=== PATIENT | female | born 1965 | race Caucasian/White ===

== ENCOUNTER → 2021-08-03 11:03 | Outpatient (BNVA) | payer OTHER, SELFPAY | PROVIDERS: PCP Family Medicine; Visit Provider Nurse Practitioner Family ==

== ENCOUNTER → 2021-09-14 10:49 | Outpatient (BNVA) | payer OTHER, SELFPAY | PROVIDERS: PCP Family Medicine; Visit Provider Nurse Practitioner Family | DX: G25.81 Restless legs syndrome (principal); G47.33 Obstructive sleep apnea (adult) (pediatric); G43.109 Migraine with aura, not intractable, without status migrainosus; S06.0X0A Concussion without loss of consciousness, initial encounter; R06.83 Snoring; Z79.899 Other long term (current) drug therapy | CPT/HCPCS: 99212 ==

== ENCOUNTER → 2021-11-24 13:49 | Outpatient (REF) | payer OTHER, SELFPAY | LOC: HO.SL 13:49 | PROVIDERS: PCP Family Medicine; Visit Provider Nurse Practitioner Family | DX: G47.33 Obstructive sleep apnea (adult) (pediatric) (principal); R06.83 Snoring; G47.19 Other hypersomnia | CPT/HCPCS: 95806 ==

== ENCOUNTER → 2021-12-02 10:49 | Outpatient (BNVA) | payer OTHER, SELFPAY | PROVIDERS: PCP Family Medicine; Visit Provider Nurse Practitioner Family | DX: Z13.89 Encounter for screening for other disorder (principal) ==

== ENCOUNTER 2021-12-15 16:32 | Outpatient (REF) | payer MEDICARE, SELFPAY ==
--- NOTE | ~2021-12-15 | XR_ITS ---
EXAMINATION: XR CHEST CLINICAL INFORMATION: G47.34 - Idiopathic sleep related nonobstructive alveolar hypoventilation COMPARISON: None. TECHNIQUE: 2 views of the chest were obtained. FINDINGS: Lungs clear. Heart size normal. Vascularity normal. No infiltrate, vascular congestion, or effusion. The costophrenic sulci are clear. The hilar and mediastinal contours are normal. No acute bony abnormality. There is fusion hardware in the lumbar spine. XR/XR chest 2V IMPRESSION: Unremarkable examination.
== END 2021-12-15 16:33 | disposition home or self-care (01) ==
LOC: HO.XRAY 16:32
PROVIDERS: PCP Family Medicine; Visit Provider Internal Medicine
DX: R05.9 Cough, unspecified (principal); G47.34 Idiopathic sleep related nonobstructive alveolar hypoventilation
CPT/HCPCS: 71046; 99202

== ENCOUNTER 2022-01-14 12:49 | Outpatient (REF) | payer MEDICARE, SELFPAY ==
--- NOTE | 2022-01-14 17:42 | PFT_ITS ---
Forced vital capacity 104, FEV1 116, FEV1/FVC ratio is 86. LCK43-06 155, and MVV 116. Post bronchodilator therapy, there is no change. Total lung capacity 92% and residual volume 62%. Diffusion capacity 64. CONCLUSION: Normal pulmonary function test, and there is no evidence of obstructive or restrictive pulmonary disorder. Diffusion capacity is slightly decreased and this is probably a nonspecific finding. Clinical correlation recommended. MD VICKIE Moise/MODL / [id number]
== END 2022-01-14 12:50 | disposition home or self-care (01) ==
LOC: HO.RESP 12:49
PROVIDERS: PCP Family Medicine; Visit Provider Internal Medicine
DX: R05.9 Cough, unspecified (principal); R06.00 Dyspnea, unspecified; G47.34 Idiopathic sleep related nonobstructive alveolar hypoventilation
CPT/HCPCS: 94060; 94727; 94729

== ENCOUNTER → 2022-01-21 11:40 | Outpatient (BNVA) | payer MEDICARE, SELFPAY | PROVIDERS: PCP Family Medicine; Visit Provider Internal Medicine | DX: G47.34 Idiopathic sleep related nonobstructive alveolar hypoventilation (principal); R05.9 Cough, unspecified | CPT/HCPCS: Q3014 ==

== ENCOUNTER → 2022-03-04 11:10 | Outpatient (BNVA) | payer MEDICARE, SELFPAY | PROVIDERS: PCP Family Medicine; Visit Provider Nurse Practitioner Family | DX: G43.109 Migraine with aura, not intractable, without status migrainosus (principal); G25.81 Restless legs syndrome; G47.34 Idiopathic sleep related nonobstructive alveolar hypoventilation; F32.A Depression, unspecified; R05.9 Cough, unspecified; R53.83 Other fatigue; Z79.899 Other long term (current) drug therapy | CPT/HCPCS: 99212 ==

== ENCOUNTER → 2022-05-07 10:35 | Outpatient (BNVA) | payer MEDICARE, SELFPAY | PROVIDERS: PCP Family Medicine; Visit Provider Nurse Practitioner Family | DX: G43.109 Migraine with aura, not intractable, without status migrainosus (principal); G47.34 Idiopathic sleep related nonobstructive alveolar hypoventilation; G25.81 Restless legs syndrome; R53.83 Other fatigue; F32.A Depression, unspecified | CPT/HCPCS: 99212 ==

== ENCOUNTER → 2022-05-20 10:04 | Outpatient (BNVA) | payer MEDICARE, SELFPAY | PROVIDERS: PCP Family Medicine; Visit Provider Psychiatry & Neurology Neurology | DX: G43.119 Migraine with aura, intractable, without status migrainosus (principal) | CPT/HCPCS: 64615; 99211; J0585 ==

== ENCOUNTER → 2022-08-12 10:51 | Outpatient (BNVA) | payer MEDICARE, SELFPAY | PROVIDERS: PCP Family Medicine; Visit Provider Nurse Practitioner Family | DX: G43.119 Migraine with aura, intractable, without status migrainosus (principal); R42 Dizziness and giddiness; R29.6 Repeated falls | CPT/HCPCS: 99212 ==

== ENCOUNTER → 2022-08-27 10:55 | Outpatient (BNVA) | payer MEDICARE, SELFPAY | PROVIDERS: PCP Family Medicine; Visit Provider Psychiatry & Neurology Neurology | DX: G43.119 Migraine with aura, intractable, without status migrainosus (principal); R42 Dizziness and giddiness; R26.9 Unspecified abnormalities of gait and mobility; S06.0XAA Concussion with loss of consciousness status unknown, initial encounter | CPT/HCPCS: 64615; 99212; J0585 ==

== ENCOUNTER → 2022-09-27 15:48 | Outpatient (BNVA) | payer MEDICARE, SELFPAY | PROVIDERS: PCP Family Medicine; Visit Provider Nurse Practitioner Family | DX: G43.809 Other migraine, not intractable, without status migrainosus (principal); F07.81 Postconcussional syndrome; R42 Dizziness and giddiness; R53.83 Other fatigue; F32.A Depression, unspecified | CPT/HCPCS: 99212 ==

== ENCOUNTER 2022-10-01 08:20 | Outpatient (REF) | payer MEDICARE, SELFPAY ==
--- NOTE | 2022-10-01 08:23 | EEG_ITS ---
This is a 16-channel EEG with an EKG lead. The patient is reported awake during the tracing. Background EEG rhythm is low amplitude fast with no obvious asymmetry or paroxysmal tendency. Photic stimulation does not produce any significant abnormality. Hyperventilation is not performed. Cardiac lead does not reveal any significant abnormality. No sharp wave spikes or paroxysmal tendency noted. IMPRESSION: Unremarkable EEG. MD RUIZ Birch/LUANN / [id number]
== END 2022-10-01 08:21 | disposition home or self-care (01) ==
LOC: HO.NEURO 08:20
PROVIDERS: PCP Family Medicine; Visit Provider Psychiatry & Neurology Neurology
DX: R42 Dizziness and giddiness (principal); R29.6 Repeated falls; R41.0 Disorientation, unspecified
CPT/HCPCS: 95816

== ENCOUNTER → 2023-01-03 09:05 | Outpatient (BNVA) | payer MEDICARE, SELFPAY | PROVIDERS: PCP Family Medicine; Visit Provider Nurse Practitioner Family | DX: G43.119 Migraine with aura, intractable, without status migrainosus (principal); G25.81 Restless legs syndrome; R29.6 Repeated falls | CPT/HCPCS: Q3014 ==

== ENCOUNTER 2023-06-02 13:02 | Outpatient (AMB) | payer MEDICARE, SELFPAY ==
--- NOTE | 2023-06-02 13:04 | MHC.OFFVIS ---
Intake Vital Signs 06/02/23 13:06 Weight 186 lb 6 oz BP 128/62 Blood Pressure Location Lt brachial Pulse 78 Pulse Source Pulse Oximeter Pulse Oximetry (%) 96 Oxygen Delivery Method Room Air Intake Visit Reasons: follow up - confirmed Allergies No Known Allergies Allergy (Verified 06/02/23 13:08) Medication List - Last Reconciled 06/02/23 by MANINDER Trinh amitriptyline 20 mg (2 x 10 mg) PO BEDTIME 90 days cholecalciferol (vitamin D3) 50 mcg PO DAILY clonazepam 1 mg PO BID 30 days cyanocobalamin (vitamin B-12) 1,000 mcg PO DAILY erenumab-aooe (Aimovig Autoinjector) 140 mg subcut ONCE 30 days fluoxetine 80 mg (2 x 40 mg) PO DAILY 90 days gabapentin 300 mg PO BID 90 days lamotrigine 75 mg (3 x 25 mg) PO DAILY 90 days ropinirole 1 mg PO DAILY 30 days ropinirole ER 2 mg PO BEDTIME 90 days sumatriptan succinate 100 mg PO Q2H PRN 30 days verapamil ER 100 mg PO BEDTIME 90 days HPI HPI Comments History of Present Illness Details 58-yr-old female presents for f/u visit. Pt endorses the following interval medical history changes: Pt is scheduled to undergo a endoscopy/colonoscopy d/t recurrent UTIs, colon infection, abd/flank pain. Pt reports migraines are reduced on Aimovig. Still easily overstimulated by noise. Her cognition feels less clear, slow, foggy. Having difficulty with losing her train of thought. Having 2-3 room spinning vertigo spells per week- needs to lay down x's 10 minutes and then needs to lay low. Has had interval falls- fell at PT- fell face-first onto the floor from a chair. Is trying to work on her balance. Walking w/ a cane or walker. Trying to ride a recumbent bike 30 minutes most days. Difficulty falling asleep, but once asleep, she is sleeping ok. She feels her mood is worse. [place] over[place]lemd at [place]- by all the noise/talking. states the holidays are always bad. Wonders about switching Fluoxetine- thinks it is not helping as much and maybe casing GERD s/s. Is compliant w/ Lamotrigene 75mg qd- which has been helpful before. Does not currently have a psychiatrist. Tilt-table test: IMPRESSION: ?NONSPECIFIC RESPONSE--due to the fact that the pt demonstrated an expected decrease in B/P of approximately 15 mmHg. ?However, she sustained an increase of heart rate greater than 10%. ?The pt's increase in heart rate ranged from 18-44%, ( up to 21 bpm) using 48 bpm as the baseline. ?Pt had no LOC during procedure. PFSH Medical History Concussion Confusion Hiatal hernia Surgical History H/O: hysterectomy Hx laparoscopic cholecystectomy Hx of bariatric surgery H/O spinal fusion Bariatric surgery status Family History Father Lung cancer Sister Breast cancer Skin cancer of arm Mother COPD (chronic obstructive pulmonary disease) Paternal Grandmother Cancer Paternal Grandfather Throat cancer Maternal Grandfather Prostate cancer Social History Alcohol intake: never Patient Tobacco Use Status: Former Tobacco user Years Smoked: 3 Substance Use Type: Marijuana Review of Systems Const All systems reviewed & are unremarkable except as noted in HPI and below Physical Exam Vital Signs: Last Vital Signs Pulse 78 06/02/23 13:06 BP 128/62 06/02/23 13:06 Pulse Ox 96 06/02/23 13:06 Oxygen Delivery Method Room Air 06/02/23 13:06 Const General: cooperative and no acute distress HEENT Head: Yes normocephalic Resp Effort & Inspection: normal respiratory effort and able to speak in complete sentences Neuro Other: A&O x's 3 w/ mild short term memory and word finding difficulties. Photophobia Finger-Nose- Right dysmetria BUE MS 5/5 BLE MS 5-/5 Unsteady gait- uses wall as support w/o cane. General: CN's II-XI intact bilaterally (intact w/ exception of mild dysarthia and EOM elicits dizziness) Deep tendon reflexes (DTR's): Right triceps reflex intensity grade: 2+, Left triceps reflex intensity grade: 2+, Rt Biceps (C5, C6): 2+, Left biceps reflex intensity grade: 2+, Right brachioradialis reflex intensity grade: 2+, Left brachioradialis reflex intensity grade: 2+, Right patellar reflex intensity grade: 2+ and Left patellar reflex intensity grade: 2+ Psych Appearance: grossly normal Affect: normal affect Attitude: cooperative Assessment & Plan Assessment & Plan (1) Migraine with aura: Code(s): G43.109 - Migraine with aura, not intractable, without status migrainosus (2) Multifactorial cognitive dysfunction: Code(s): 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 Tilt-table test- non-specific response- HR elevation w/ BP elevation response. Increase fluids. Future considerations- weaning off of verapamll. ? For migraines: For phonophobia- may consider noise cancelling ear plugs- such as [employer]. Continue Aimovig 140mg sc q month. Continue Amitriptyline 20mg qhs. Continue Verapamil ER 100mg qhs. Sumatriptan 100mg prn. Previous medication trials- Botox- ineffective. ? For RLS: Continue Ropinirole 1mg IR qam and 2mg ER qhs. For cognition: Engage in cognitively stimualting activities ? For depression, PTSD: Continue fluoxetine 80mg qd- would be hesitant to decrease at this time as pt's mood tends to be worse Increase Lamotrigene from 75mg qd to 100mg qd. Will refer pt to psychiatry. Disability paperwork completed today ? f/u in 4 months or sooner prn. Orders: Referrals Psychiatry Referral F09 - Unspecified mental disorder due to known physiological condition, F32.A - Depression, unspecified, F43.10 - Post-traumatic stress disorder, unspecified, G43.109 - Migraine with aura, not intractable, without status migrainosus, S06.0X0A - Concussion without loss of consciousness, initial encounter Medications: Changed From lamotrigine 75 mg (3 x 25 mg) PO DAILY 90 days 270 tabs 1RF To lamotrigine 100 mg (4 x 25 mg) PO DAILY 90 days 360 tabs 1RF Coding Level of Care Code Est Pt Level 4 (27057) Diagnoses Migraine with aura G43.109 Multifactorial cognitive dysfunction F09 Vertigo R42
[2023-06-02 13:06] VITALS: BP 128/62; PULSE 78; O2SAT 96
== END 2023-06-02 14:01 | disposition home or self-care (01) ==
PROVIDERS: PCP Family Medicine; Visit Provider Nurse Practitioner Family
DX: G43.109 Migraine with aura, not intractable, without status migrainosus (principal); R41.89 Other symptoms and signs involving cognitive functions and awareness; R42 Dizziness and giddiness; R29.6 Repeated falls
CPT/HCPCS: 99214

== ENCOUNTER → 2023-06-02 13:02 | Outpatient (BNVA) | payer MEDICARE, SELFPAY | PROVIDERS: PCP Family Medicine; Visit Provider Nurse Practitioner Family | DX: G43.109 Migraine with aura, not intractable, without status migrainosus (principal); F09 Unspecified mental disorder due to known physiological condition; R42 Dizziness and giddiness | CPT/HCPCS: 99212 ==

== ENCOUNTER 2023-09-02 07:52 | Outpatient (AMB) | payer MEDICARE, SELFPAY ==
[2023-09-02 07:59] VITALS: PULSE 87; O2SAT 96; BMI 30.9
--- NOTE | 2023-09-02 07:59 | A.OFFVIS_ITS ---
Intake Vital Signs 09/02/23 07:59 Height 5 ft 5 in Weight 186 lb BMI 30.9 Pulse 87 Pulse Source Pulse Oximeter Pulse Oximetry (%) 96 Oxygen Delivery Method Room Air Intake Visit Reasons: 3M follow up-LVM Intake Note: Patient presents for 3 month follow up. I 've had quite a few falls. Allergies No Known Allergies Allergy (Verified 09/02/23 08:05) Medication List - Last Reconciled 09/02/23 by MANINDER Trinh amitriptyline 20 mg (2 x 10 mg) PO BEDTIME 90 days cholecalciferol (vitamin D3) 50 mcg PO DAILY clonazepam 1 mg PO BID 30 days cyanocobalamin (vitamin B-12) 1,000 mcg PO DAILY erenumab-aooe (Aimovig Autoinjector) 140 mg subcut ONCE 30 days fluoxetine 80 mg (2 x 40 mg) PO DAILY 90 days gabapentin 300 mg PO BID 90 days lamotrigine 100 mg (4 x 25 mg) PO DAILY 90 days ropinirole 1 mg PO DAILY 90 days ropinirole ER 2 mg PO BEDTIME 90 days sumatriptan succinate 100 mg PO Q2H PRN 30 days verapamil 40 mg PO BID 30 days HPI HPI Comments History of Present Illness Details 58-yr-old female presents for f/u visit. Pt reports she has been having a lot of falls . States 6 falls in the past 2 months. Falls triggered by turning to the right whetehr she is using a device or not, causes her to ebcome off balance, then falls. Many times, she has hit her head. Slowly she can get herself up. She had been more depressed- hard . Denies suicidal ideation. She wonders about changing her fluoxetine dose. Has appt w/ psychiatrist on 10/02. Continues to have forgetfulness and brain fog. She has not had any migraine attacks since resuming Aimovig. Has started having another headache, which started 2 months ago- sharp quick retororbital pain which comes and goes x's 10-15 minutes. Once woke up with this headache. This can occur at most 3 x's in 1 day. Does not occur every day. [facility], [facility] Medical History Concussion Confusion Hiatal hernia Surgical History H/O: hysterectomy Hx laparoscopic cholecystectomy Hx of bariatric surgery H/O spinal fusion Bariatric surgery status Family History Father Lung cancer Sister Breast cancer Skin cancer of arm Mother COPD (chronic obstructive pulmonary disease) Paternal Grandmother Cancer Paternal Grandfather Throat cancer Maternal Grandfather Prostate cancer Social History Alcohol intake: never Patient Tobacco Use Status: Former Tobacco user Years Smoked: 3 Substance Use Type: Marijuana Physical Exam Vital Signs: Last Vital Signs Pulse 87 09/02/23 07:59 Pulse Ox 96 09/02/23 07:59 Oxygen Delivery Method Room Air 09/02/23 07:59 BMI result Body Mass Index 30.9 Const General: cooperative and no acute distress Orientation/consciousness: patient oriented x3 Resp Effort & Inspection: normal respiratory effort and able to speak in complete sentences Neuro Other: A&O x's 3 w/ mild short term memory and word finding difficulties. Photophobia BUE MS 5/5 BLE MS 5-/5 Unsteady gait- uses wall as support w/o cane. General: patient oriented x3 Cranial nerves: Yes CN's II-XII intact bilaterally Cognition (Neuro): normal cognition Psych Appearance: grossly normal Affect: normal affect Attitude: cooperative Assessment & Plan Assessment & Plan (1) New onset headache: Code(s): R51.9 - Headache, unspecified (2) Stabbing headache: Code(s): G44.85 - Primary stabbing headache (3) Frequent falls: Code(s): R29.6 - Repeated falls (4) Multifactorial cognitive dysfunction: Code(s): F09 - Unspecified mental disorder due to known physiological condition (5) Migraine with aura, intractable, without status migrainosus: Code(s): G43.119 - Migraine with aura, intractable, without status migrainosus (6) Restless leg syndrome: Code(s): G25.81 - Restless legs syndrome Plan For h/o frequent falls, vertigo: EEG- normal. Tilt-table test- non-specific response- HR elevation w/ BP elevation response. Continue to increase fluids. For new onset headache in setting of multiple falls- Brain MRI w/o For migraines: Continue Aimovig 140mg sc q month. Continue Amitriptyline 20mg qhs. Wean off Verapamil ER 100mg qhs- change to 40mg bid, then slowly wean off completely- in hope sthis helps lightheadedness. Sumatriptan 100mg prn. Previous medication trials- Botox- ineffective. ? For RLS: Continue Ropinirole 1mg IR qam and 2mg ER qhs. For cognition: Engage in cognitively stimulating activities ? For depression, PTSD: Continue fluoxetine 80mg qd- would be hesitant to decrease at this time as pt's mood tends to be worse Continue Lamotrigene 100mg qd. Pt requests refill of Clonzazepam- will refill. Psychiatry consult as scheduled. f/u in 4 months or sooner prn. Medications: New verapamil 40 mg PO BID 60 tabs 3RF 30 days Discontinued verapamil ER Discontinued Reason: Doctor's Order 100 mg PO BEDTIME 90 days 90 caps 1RF Coding Level of Care Code Est Pt Level 4 (85978) Diagnoses New onset headache R51.9 Stabbing headache G44.85 Frequent falls R29.6 Multifactorial cognitive dysfunction F09 Migraine with aura, intractable, without status migrainosus G43.119 Restless leg syndrome G25.81
== END 2023-09-02 08:49 | disposition home or self-care (01) ==
PROVIDERS: PCP Family Medicine; Visit Provider Nurse Practitioner Family
DX: G44.85 Primary stabbing headache (principal); R29.6 Repeated falls; R41.89 Other symptoms and signs involving cognitive functions and awareness; G43.119 Migraine with aura, intractable, without status migrainosus; G25.81 Restless legs syndrome
CPT/HCPCS: 99214

== ENCOUNTER → 2023-09-02 07:52 | Outpatient (BNVA) | payer MEDICARE, SELFPAY | PROVIDERS: PCP Family Medicine; Visit Provider Nurse Practitioner Family | DX: G44.85 Primary stabbing headache (principal); G43.119 Migraine with aura, intractable, without status migrainosus; G25.81 Restless legs syndrome; R29.6 Repeated falls; F09 Unspecified mental disorder due to known physiological condition | CPT/HCPCS: 99212 ==

== ENCOUNTER 2023-11-09 09:12 | Outpatient (REF) | payer MEDICARE, SELFPAY ==
--- NOTE | ~2023-11-09 | MR_ITS ---
EXAMINATION: MR BRAIN WITHOUT CONTRAST CLINICAL INFORMATION: Headache COMPARISON: None. TECHNIQUE: MRI of the brain was obtained using routine sequences without contrast. FINDINGS: Motion degraded examination compromising diagnostic assessment. No acute infarct. No acute intracranial hemorrhage or extra-axial fluid collection. Mild global cerebral volume loss. Patchy T2 FLAIR hyperintense foci in the subcortical and periventricular white matter and felipe, nonspecific but presumably mild chronic microangiopathy. No mass lesion, mass effect, or herniation pattern. Normal intracranial arterial and dural venous sinus flow voids. Partially empty sella. Small right and possibly also left petrous apex cephaloceles. The orbits are grossly unremarkable. The paranasal sinuses and mastoids are well aerated. Normal marrow signal. MR/MR head/brain wo/w con IMPRESSION: Motion degraded examination compromising diagnostic assessment. 1. No acute intracranial abnormality. 2. Partially empty sella and small right and possibly also left petrous apex cephaloceles that can be correlated clinically for recent intracranial pressure/pseudotumor cerebri. 3. Mild age-appropriate global cerebral volume loss. Nonspecific white matter disease, presumably chronic microangiopathy.
[2023-11-09] MEDS: gadobutroL 10 ML VIAL IVPUSH (11:13)
== END 2023-11-09 09:13 | disposition home or self-care (01) ==
LOC: HO.MRI 09:12
PROVIDERS: PCP Family Medicine; Visit Provider Nurse Practitioner Family
DX: G44.85 Primary stabbing headache (principal); R29.6 Repeated falls
CPT/HCPCS: 70553; A9585

== ENCOUNTER 2023-12-23 09:35 | Outpatient (REF) | payer MEDICARE, SELFPAY ==
--- NOTE | ~2023-12-23 | XR_ITS ---
EXAMINATION: XR CERVICAL SPINE CLINICAL INFORMATION: Patient states has had this condition for 7 years. History of falls and whiplash. COMPARISON: None available. TECHNIQUE: 7 views of the cervical spine. FINDINGS: Degenerative changes between the anterior arch of C1 and the odontoid. Advanced degenerative changes with spondylosis and loss of disc space height at C4-C5 and C5-C6. Limited visualization of C7 due to overlying soft tissues. Minimal anterolisthesis of C2 on C3 with flexion and reduces with extension. Mild anterolisthesis of C3 on C4 with flexion and decreases with extension. Bilateral facet hypertrophy with neural foraminal encroachment most notable at C4-C6 levels. XR/XR cervical spine w flex/ext IMPRESSION: Advanced degenerative disc disease at C4-C5 and C5-C6.
== END 2023-12-23 09:36 | disposition home or self-care (01) ==
LOC: HO.XRAY 09:35
PROVIDERS: PCP Family Medicine; Visit Provider Nurse Practitioner Family
DX: M54.2 Cervicalgia (principal); R29.6 Repeated falls
CPT/HCPCS: 72052

== ENCOUNTER 2024-02-07 09:39 | Outpatient (AMB) | payer MEDICARE, SELFPAY ==
--- NOTE | 2024-02-07 09:41 | MHC.OFFVIS ---
Vital Signs 02/07/24 09:42 Height 5 ft 5 in Weight 183 lb BMI 30.4 BP 114/82 Blood Pressure Location Rt brachial Position Sitting Pulse 82 Pulse Source Pulse Oximeter Pulse Oximetry (%) 97 Oxygen Delivery Method Room Air Intake Visit Reasons: follow up-CONF Intake Note: Patient presents for follow up. patients cognition has declined and is forgetting a lot of things frequently. Allergies No Known Allergies Allergy (Verified 02/07/24 09:51) HPI Comments Details: 58-yr-old female presents for f/u visit. Pt was scheduled to have DaTscan, however she had a syncopal event during the study (after taking the drink but prior the scan itself) so study was aborted and pt was sent to the ER. In the ER, it was noted that pt had not eaten prior to the study. The DaTscan has been rescheduled for later this month. November 2023 Brain MRI w/o- 1. No acute intracranial abnormality. 2. Partially empty sella and small right and possibly also left petrous apex cephaloceles that can be correlated clinically for recent intracranial pressure/pseudotumor cerebri. 3. Mild age-appropriate global cerebral volume loss. Nonspecific white matter disease, presumably chronic microangiopathy She has had too many falls to count . Prone to falling backwards. Feeling more cognitive difficulties. She has been having increased bilateral lower back pain which radiates up as sharp pains up her back if she tries to do anything- like bending over. Some days this prevents her from even getting out of bed. States that she she was told she had kidney stones but then told her she does not. She states she is just exhausted- even taking a shower, makes her need to rest and lay back down. She is sweating more in the few months- even shaved her head to help this. Other times, she feels very cold. She does have central air at home. She odes have a hot tub- feels better when using it but as soon as she is done, everything feels worse. She is feeling depressed. She is not driving anymore- she decided this on her own. She is not having migraines. She may have head pressure. She has tolerated reducing verapamil and increasing the amitriptyline. [facility] Medical History Concussion Confusion Hiatal hernia Surgical History H/O: hysterectomy Hx laparoscopic cholecystectomy Hx of bariatric surgery H/O spinal fusion Bariatric surgery status Family History Father Lung cancer Sister Breast cancer Skin cancer of arm Mother COPD (chronic obstructive pulmonary disease) Paternal Grandmother Cancer Paternal Grandfather Throat cancer Maternal Grandfather Prostate cancer Social History Alcohol intake: never Patient Tobacco Use Status: Former Tobacco user Years Smoked: 3 Substance Use Type: Marijuana Review of Systems Const All systems reviewed & are unremarkable except as noted in HPI and below Physical Exam Vital Signs: Last Vital Signs Pulse 82 02/07/24 09:42 BP 114/82 02/07/24 09:42 Pulse Ox 97 02/07/24 09:42 Oxygen Delivery Method Room Air 02/07/24 09:42 BMI result Body Mass Index 30.4 Const General: cooperative and no acute distress Resp Effort & Inspection: normal respiratory effort and able to speak in complete sentences Neuro Other: General: A&O x's 3 BLE hip flexor MS 5-/5. BLE foot dorsiflexion MS 5-/5. Bilateral R > L lumbar parspinal tenderness Needs assist to stand, knees bent, slightly scissoered gait. Deep tendon reflexes (DTR's): Right patellar reflex intensity grade: 2+, Left patellar reflex intensity grade: 2+, Right ankle reflex intensity grade: 2+ and Left ankle reflex intensity grade: 2+ Assessment & Plan Assessment & Plan (1) Frequent falls: Code(s): R29.6 - Repeated falls Category: Medical (2) Altered gait: Code(s): R26.9 - Unspecified abnormalities of gait and mobility Category: Medical (3) Low back pain: Code(s): M54.50 - Low back pain, unspecified Category: Medical (4) Migraine with aura: Code(s): G43.109 - Migraine with aura, not intractable, without status migrainosus Category: Medical (5) Restless leg syndrome: Code(s): G25.81 - Restless legs syndrome Category: Medical (6) Depression: Code(s): F32.A - Depression, unspecified Category: Medical (7) PTSD (post-traumatic stress disorder): Code(s): F43.10 - Post-traumatic stress disorder, unspecified Category: Medical (8) Multifactorial cognitive dysfunction: Code(s): F09 - Unspecified mental disorder due to known physiological condition Category: Medical Plan For h/o frequent falls, vertigo: EEG- normal. Tilt-table test- non-specific response- HR elevation w/ BP elevation response. DaTscan as scheduled. Brain MRI- partail empty sella, and small right and possibly also left petrous apex cephaloceles. No vision changes. Routine eye eam. Mild age-appropriate global cerebral volume loss. Nonspecific white matter disease, presumably chronic microangiopathy. Continue to optimize CV risk factors. . Will continue to wean off Verapamil in hopes this reduces risk for falls. Will check labs, including lamotrigeine level. Home PT eval & tx for home safety, strength, endurance, balance, adaptive equipment eval & tx. L-spine MRI w/o. Continue to increase fluids. Future considerations- reducing lamotrigine dose (being mindful taht this has been helpful for mood). ?. For migraines: Continue Aimovig 140mg sc q month. Continue Amitriptyline 20mg qhs. Continue to wean off Verapamil. Decrease from 40mg qd to 40mg qod x's 1 week, then 40mg qod q 3 days x's 1 week, then stop. Sumatriptan 100mg prn. Previous medication trials- Botox- ineffective. ? For RLS: Continue Ropinirole 1mg IR qam and 2mg ER qhs. ? For cognition: Engage in cognitively stimulating activities Check labs for common etiologies. ? For depression, PTSD: Continue fluoxetine 80mg qd. Continue Lamotrigene 100mg qd for now. Continue Clonzazepam- will refill. ? f/u in 4 months or sooner prn. Orders: Orders Complete Blood Count Auto Diff Today F09 - Unspecified mental disorder due to known physiological condition, R26.9 - Unspecified abnormalities of gait and mobility, R42 - Dizziness and giddiness, R79.89 - Other specified abnormal findings of blood chemistry Comprehensive Met. Panel Today F09 - Unspecified mental disorder due to known physiological condition, R26.9 - Unspecified abnormalities of gait and mobility, R42 - Dizziness and giddiness, R79.89 - Other specified abnormal findings of blood chemistry Vitamin B12 and Folate Today F09 - Unspecified mental disorder due to known physiological condition, R26.9 - Unspecified abnormalities of gait and mobility, R42 - Dizziness and giddiness, R79.89 - Other specified abnormal findings of blood chemistry Homocysteine Today F09 - Unspecified mental disorder due to known physiological condition, R26.9 - Unspecified abnormalities of gait and mobility, R42 - Dizziness and giddiness, R79.89 - Other specified abnormal findings of blood chemistry Rheumatoid Factor Today F09 - Unspecified mental disorder due to known physiological condition, R26.9 - Unspecified abnormalities of gait and mobility, R42 - Dizziness and giddiness, R79.89 - Other specified abnormal findings of blood chemistry Lamotrigine Lamictal Today F09 - Unspecified mental disorder due to known physiological condition, R26.9 - Unspecified abnormalities of gait and mobility, R42 - Dizziness and giddiness, R79.89 - Other specified abnormal findings of blood chemistry Erythrocyte Sedimentation Rate Today F09 - Unspecified mental disorder due to known physiological condition, R26.9 - Unspecified abnormalities of gait and mobility, R42 - Dizziness and giddiness, R79.89 - Other specified abnormal findings of blood chemistry Hemoglobin A1c Today F09 - Unspecified mental disorder due to known physiological condition, R26.9 - Unspecified abnormalities of gait and mobility, R42 - Dizziness and giddiness, R79.89 - Other specified abnormal findings of blood chemistry Methylmalonic Acid Today F09 - Unspecified mental disorder due to known physiological condition, R26.9 - Unspecified abnormalities of gait and mobility, R42 - Dizziness and giddiness, R79.89 - Other specified abnormal findings of blood chemistry SUZETTE Reflex Titer and Pattern Today F09 - Unspecified mental disorder due to known physiological condition, R26.9 - Unspecified abnormalities of gait and mobility, R42 - Dizziness and giddiness, R79.89 - Other specified abnormal findings of blood chemistry CRP High Sensitivity Today F09 - Unspecified mental disorder due to known physiological condition, R26.9 - Unspecified abnormalities of gait and mobility, R42 - Dizziness and giddiness, R79.89 - Other specified abnormal findings of blood chemistry HIV Ab/Ag Today F09 - Unspecified mental disorder due to known physiological condition, R26.9 - Unspecified abnormalities of gait and mobility, R42 - Dizziness and giddiness, R79.89 - Other specified abnormal findings of blood chemistry Syphilis Screen Today F09 - Unspecified mental disorder due to known physiological condition, R26.9 - Unspecified abnormalities of gait and mobility, R42 - Dizziness and giddiness, R79.89 - Other specified abnormal findings of blood chemistry TSH reflex Free T4 Today F09 - Unspecified mental disorder due to known physiological condition, R26.9 - Unspecified abnormalities of gait and mobility, R42 - Dizziness and giddiness, R79.89 - Other specified abnormal findings of blood chemistry MR lumbar spine wo con Today M54.50 - Low back pain, unspecified, R26.9 - Unspecified abnormalities of gait and mobility, R29.6 - Repeated falls Referrals [facility] Referral M54.50 - Low back pain, unspecified, R26.9 - Unspecified abnormalities of gait and mobility, R29.6 - Repeated falls Coding Level of Care Code Est Pt Level 4 (44150) Diagnoses Frequent falls R29.6 Altered gait R26.9 Low back pain M54.50 Migraine with aura G43.109 Restless leg syndrome G25.81 Depression F32.A PTSD (post-traumatic stress disorder) F43.10 Multifactorial cognitive dysfunction F09
[2024-02-07 09:42] VITALS: BP 114/82; PULSE 82; O2SAT 97; BMI 30.4
== END 2024-02-07 10:50 | disposition home or self-care (01) ==
PROVIDERS: PCP Family Medicine; Visit Provider Nurse Practitioner Family
DX: R29.6 Repeated falls (principal); R26.9 Unspecified abnormalities of gait and mobility; M54.50 Low back pain, unspecified; G43.109 Migraine with aura, not intractable, without status migrainosus; G25.81 Restless legs syndrome; F32.A Depression, unspecified; F43.10 Post-traumatic stress disorder, unspecified
CPT/HCPCS: 99214

== ENCOUNTER → 2024-02-07 09:39 | Outpatient (BNVA) | payer MEDICARE, SELFPAY | PROVIDERS: PCP Family Medicine; Visit Provider Nurse Practitioner Family | DX: G43.109 Migraine with aura, not intractable, without status migrainosus (principal); G25.81 Restless legs syndrome; R79.89 Other specified abnormal findings of blood chemistry; M54.50 Low back pain, unspecified; R29.6 Repeated falls; F32.A Depression, unspecified; F43.10 Post-traumatic stress disorder, unspecified | CPT/HCPCS: 99212 ==

== ENCOUNTER 2024-02-08 13:46 | Outpatient (REF) | payer MEDICARE, SELFPAY ==
[2024-02-08 14:19] LABS: MANUAL DIFF FLAG NO
[2024-02-08 14:44] LABS: Basophils Percent Auto 0.8 % (0-2); Eosinophils Absolute Auto 0.3 X10*3/uL (0.0-0.4); Eosinophils Percent Auto 7.2 % (0-4); Hematocrit 38.9 % (37.0-47.0); Hemoglobin 12.7 g/dl (12.0-16.0); Imm Gran Abs Auto 0.01 X10*3/uL (0.00-0.03); Imm Gran Pct Auto 0.3 % (0.0-0.4); Lymphocytes Absolute Auto 1.1 X10*3/uL (1.2-4.9); Lymphocytes Percent Auto 28.8 % (20-40); Mean Corpuscular HGB Conc 32.6 g/dl (31.0-35.0); Mean Corpuscular Hemoglobin 30.2 pg (27.0-33.0); Mean Corpuscular Volume 92.6 fL (80.0-98.0); Mean Platelet Volume 11.3 fL (9.4-12.3); Monocytes Absolute Auto 0.3 X10*3/uL (0.1-1.2); Monocytes Percent Auto 7.5 % (2-11); Neutrophils Absolute Auto 2.2 x10*3/uL (2.0-8.3); Neutrophils Percent Auto 55.4 % (45-73); Platelet Count 235 X10*3/uL (160-400); Red Cell Distribution Width 13.4 % (11.0-16.0); White Blood Count 3.9 X10*3/uL (4.8-10.8)
[2024-02-08 14:52] LABS: Estimated Average Glucose 100 mg/dL; Hemoglobin A1c % 5.1 % (<6.0)
[2024-02-08 15:05] LABS: Rheumatoid Factor < 13.0 IU/mL (<15.0)
[2024-02-08 15:08] LABS: Alanine Aminotransferase 21 U/L (0-31); Albumin Level 3.7 g/dL (3.5-5.0); Alkaline Phosphatase 121 U/L (39-117); Anion Gap 9 (12-20); Aspartate Amino Transferase 17 U/L (5-31); Bilirubin Total 0.3 mg/dL (0.0-1.0); Blood Urea Nitrogen 13 mg/dL (9-16); Calcium 9.5 mg/dL (8.4-10.2); Carbon Dioxide 29 mmol/L (22-29); Chloride 108 mmol/L (96-108); Estimated Glomerular Filt Rate > 60; Glucose Random 89 mg/dL (60-115); Sodium 142 mmol/L (135-145); Total Protein 6.6 g/dL (6.5-8.0)
[2024-02-08 15:22] LABS: TSH reflex Free T4 1.51 uIU/mL (0.32-4.0)
[2024-02-08 15:25] LABS: Erythrocyte Sedimentation Rate 17 MM/HR (0-20)
[2024-02-08 15:36] LABS: Folate 8.7 ng/mL (> or = 4.0); Vitamin B12 654 pg/mL (200-900)
[2024-02-09 07:49] LABS: Syphilis Screen Nonreactive (Nonreactive)
[2024-02-09 07:51] LABS: HIV AB/AG Nonreactive (Nonreactive); HIV Num 1 0.05 S/CO (0.00-0.99)
[2024-02-09 09:33] LABS: CRP High Sensitivity 1.3 mg/L
[2024-02-09 15:49] LABS: Homocysteine 7.6 umol/L (<10.4)
[2024-02-11 09:24] LABS: Methylmalonic Acid 175 nmol/L (69-390)
[2024-02-11 16:37] LABS: Lamotrigine Lamictal 2.4 mcg/mL (2.5-15.0)
[2024-02-13 10:39] LABS: Anti Nuclear Antibody Screen NEGATIVE (NEGATIVE)
== END 2024-02-08 13:47 | disposition home or self-care (01) ==
LOC: HO.LAB 13:46
PROVIDERS: PCP Family Medicine; Visit Provider Nurse Practitioner Family
DX: R26.9 Unspecified abnormalities of gait and mobility (principal); R79.89 Other specified abnormal findings of blood chemistry; F09 Unspecified mental disorder due to known physiological condition; R42 Dizziness and giddiness
CPT/HCPCS: 36415; 80053; 80175; 82607; 82746; 83036; 83090; 83921; 84443; 85025; 85652; 86038; 86141; 86431; 86780; 87389

== ENCOUNTER → 2024-03-29 07:15 | Outpatient (BNV) | payer MEDICARE, MEDICAID, SELFPAY | PROVIDERS: PCP Family Medicine; Visit Provider Radiology Diagnostic Radiology | DX: R26.9 Unspecified abnormalities of gait and mobility (principal) | CPT/HCPCS: 70546; 72148 ==

== ENCOUNTER 2024-03-29 07:23 | Outpatient (REF) | payer MEDICARE, MEDICAID, SELFPAY ==
--- NOTE | ~2024-03-29 | MR_ITS ---
EXAMINATION: MR of the brain with contrast. CLINICAL INFORMATION: Headache. COMPARISON: No priors. Correlated to MRI brain dated November 09, 2023. TECHNIQUE: Coronal 2-D [id number] with contrast. Sagittal twist. Total of 10 cc of gadolinium (Gadavist) given IV without reported immediate complications. FINDINGS: Superior sagittal venous sinus, internal cerebral veins, vein of Kendrick, straight venous sinus, transverse and sigmoid venous sinuses and jugular bulbs demonstrated normal patency without intraluminal filling defects or focal stenosis. There is a dominant right transverse and sigmoid sinuses. MR/MR venography head wo/w con IMPRESSION: No main cerebral venous sinus thrombosis. Electronically signed by: Roger Peraza MD 05/03/2024 09:18 AM EDT
--- NOTE | ~2024-03-29 | MR_ITS ---
EXAMINATION: MR LUMBAR SPINE WITHOUT CONTRAST CLINICAL INFORMATION: Unspecified abnormality gait and mobility. Left-sided pain. COMPARISON: None available. TECHNIQUE: MRI of the lumbar spine was obtained using routine sequences without contrast. FINDINGS: Exam submitted for interpretation on April 30, 2024. Last rib-bearing vertebra labeled T12. Paramagnetic field distortion secondary to metallic hardware from the posterior fusion L3 L5 and intervertebral disc spacers, L3-4 and L4-5 levels. Multilevel marginal osteophyte formation and disc desiccation more conspicuous at L2-3. Bone marrow STIR signal in the endplates of L2-3. Modic type I endplate changes L2-3. Grade 1 retrolisthesis, L2-3. Conus medullaris ends at superior endplate of L1 with normal signal. No elements of the thecal sac demonstrated no grouping or clumping or thecal sac empty sign. T12-L1: No compression upon neural elements. L1-2: Right subarticular broad-based disc herniation. No compression upon neural elements. Facet joint hypertrophy. L2-3: Grade 1 retrolisthesis. Broad-based disc bulging. Facet joint and ligamentum flavum hypertrophy. Reduced AP diameter of the thecal sac and the neural foramina likely encroaching the neural elements. L3-4: Post surgical changes. L4-5: Post surgical changes. Probable grade 1 anterolisthesis. Broad-based disc bulging. Facet joint hypertrophy. Bilateral neuroforamina narrowing encroaching the exiting nerve roots. Tarlov cyst, right S1. No prevertebral compartment hematoma, mass or fluid collection. Fatty atrophy of the lower lumbar muscles. MR/MR lumbar spine wo con IMPRESSION: Cervical spondylosis L2-3 resulting in grade 1 retrolisthesis and central spinal canal and neural foramina stenosis encroaching the neural limits. Instability cannot be excluded. No acute or chronic arachnoiditis. Electronically signed by: Roger Peraza MD 04/30/2024 12:42 PM EDT
[2024-03-29] MEDS: gadobutroL 10 ML VIAL IVPUSH (08:44)
== END 2024-03-29 07:24 | disposition home or self-care (01) ==
LOC: HO.MRI 07:23
PROVIDERS: PCP Family Medicine; Visit Provider Nurse Practitioner Family
DX: R51.9 Headache, unspecified (principal); R26.9 Unspecified abnormalities of gait and mobility; S06.0XAA Concussion with loss of consciousness status unknown, initial encounter; R29.6 Repeated falls; M54.50 Low back pain, unspecified
CPT/HCPCS: 70546; 72148; A9585

== ENCOUNTER 2024-04-13 10:25 | Outpatient (AMB) | payer MEDICARE, MEDICAID, SELFPAY ==
--- NOTE | 2024-04-13 10:44 | A.SPINEOV_ITS ---
Intake Visit Reasons: low back pain Intake Note: Ms. Amaya is here today c/o low back pain with difficulty walking. Regional Construction Manager Required: No Allergies No Known Allergies Allergy (Verified 04/13/24 10:48) Assessment & Plan Assessment & Plan (1) Carpal tunnel syndrome: Code(s): G56.00 - Carpal tunnel syndrome, unspecified upper limb Category: Medical (2) Synovial cyst of lumbar facet joint: Code(s): M71.38 - Other bursal cyst, other site Category: Medical (3) Lumbar back pain with radiculopathy affecting left lower extremity: Code(s): M54.16 - Radiculopathy, lumbar region Category: Medical Plan Dear colleague Thank you for referring Zaria Amaya to the office today with a chief complaint of left sciatica. HPI: This 59-year-old female underwent an L3-4 and L4-5 lumbar fusion 2020 from which he recovered well. In the last year she developed severe pain radiating down her left leg. It starts in the left side of her back then goes to a posterior thigh down her leg. Is also tingling associated in the lower part of the leg and foot. She has tried multiple injections without success. She using CBD for pain control. Physical therapy was not successful. Second complaint is tingling in her hands, predominantly the 4th and 3rd finger. She had carpal tunnel release done approximately 20 years ago. Overall, she is healthy regarding cardiac and pulmonary status. She does have postconcussion syndrome due to multiple falls. She is under care of a neurologist that is trying to figure out why she is falling that frequently. ots PMH: Migraine, tinnitus Postconcussion syndrome, bariatric surgery, lumbar fusion, hiatal hernia repair, cholecystectomy Medications: Amitriptyline, propranolol, clonazepam, fluoxetine, gabapentin, lamotrigine, sumatriptan, methenamine, pantoprazole, multivitamins Allergies: NKDA Social history: . Nonsmoker disabled Physical Exam: Patient ambulates with a cane. Straight leg raise produces pain radiating down her left leg. Motor exam shows mil weakness of the plantar flexors on the left side. Tinel's was positive over the wrist. Hand client service supervisor is decreased with the left side is 4/5 in the right side 4+ out of 5. Radiological Studies: MRI done at [facility] shows status post L3- L5 lumbar fusion. There is a synovial cyst compressing the left S1 nerve root. Impression/Plan: This patient is suffering from a lumbar radiculopathy most likely related to the synovial cyst compressing the left S1 nerve root. The pain has not responded to conservative management and therefore I recommended resection of the synovial cyst to decompress the S1 nerve root. She will be scheduled for 05/10/2024. I will also refer her for an EMG to assess if she has carpal tunnel syndrome. Thank you for allowing me to participate in your patients care. total time spent was 50 minutes in counseling ,coordination of plan, personal review of imaging, surgical decision making and subsequent plan Benjamin Menendez MD, PhD Sp[facility] Trained Neurosurgeon Director, [facility] Orders: Orders NE electromyogram (EMG) Today G56.00 - Carpal tunnel syndrome, unspecified upper limb Coding Level of Care Code New Pt Level 4 (18512) Diagnoses Carpal tunnel syndrome G56.00 Synovial cyst of lumbar facet joint M71.38 Lumbar back pain with radiculopathy affecting left lower extremity M54.16
== END 2024-04-13 11:42 | disposition home or self-care (01) ==
PROVIDERS: PCP Family Medicine; Visit Provider Neurological Surgery
DX: G56.00 Carpal tunnel syndrome, unspecified upper limb (principal); M71.38 Other bursal cyst, other site
CPT/HCPCS: 99204

== ENCOUNTER → 2024-04-13 10:25 | Outpatient (BNVA) | payer MEDICARE, MEDICAID, SELFPAY | PROVIDERS: PCP Family Medicine; Visit Provider Neurological Surgery | DX: G56.00 Carpal tunnel syndrome, unspecified upper limb (principal); M71.38 Other bursal cyst, other site; M54.16 Radiculopathy, lumbar region; M54.32 Sciatica, left side; Z98.1 Arthrodesis status | CPT/HCPCS: 99202 ==

== ENCOUNTER 2024-05-17 09:59 | Day surgery (SDC) | payer MEDICARE, SELFPAY ==
[2024-04-30 12:26] VITALS: BP 110/67; PULSE 68; RESP 18; O2SAT 98; BMI 30.8
--- NOTE | 2024-04-30 12:49 | P.CONAN_ITS ---
Documented by User: Ita Wilkinson NP 05/15/24 14:37 HPI - Anesthesia Eval Consult details Narrative: 59yo F for S1 Synoval Cyst Resection, 05/17/24 Follows with [facility] neuro for Falls/off balance with post-concussion, forgetfulness, seizures, Pt reports 13 concussions since 07/2023. Last 01/2024. Falls started years ago. ~ 4 surgeries 2019 without any exacerbation of falls/vertigo. Seizures presents like vertigo, no LOC. Last 6 weeks ago. No RAOUL since bariatric surgery [address] Smiley [facility] Active Problems Active Problems: All Active Problems Lumbar back pain with radiculopathy affecting left lower extremity (Acute) Synovial cyst of lumbar facet joint (Acute) Carpal tunnel syndrome (Acute) Low back pain (Acute) Low vitamin B12 level (Acute) Cervicalgia (Acute) Difficulty balancing (Acute) Altered gait (Acute) Stabbing headache (Acute) New onset headache (Acute) Multifactorial cognitive dysfunction (Acute) PTSD (post-traumatic stress disorder) (Acute) Frequent falls (Acute) Vertigo (Acute) Migraine with aura, intractable, without status migrainosus (Acute) Chronic migraine with aura (Acute) Depression (Acute) Nocturnal hypoxemia (Acute) Cough (Acute) Excessive daytime sleepiness (Acute) Restless leg syndrome (Acute) Obstructive sleep apnea (Acute) Migraine with aura (Acute) Concussion without loss of consciousness (Acute) Concussion (Acute) Confusion (Acute) Past Medical History Medical History Kidney stones White matter disease Fibromyalgia Memory loss History of traumatic head injury Numbness TIA (transient ischemic attack) Seizures SOB (shortness of breath) Incontinent of urine Sleep apnea Urinary urgency Syncope Obese Migraine Back pain Hyperlipidemia Frequent falls Colitis Chronic kidney disease, stage 2, mildly decreased GFR Atherosclerosis of coronary artery Anxiety Alkaline phosphatase raised Abrasion of face Concussion Confusion Hiatal hernia Family History Family History Father Lung cancer Sister Breast cancer Skin cancer of arm Mother COPD (chronic obstructive pulmonary disease) Paternal Grandmother Cancer Paternal Grandfather Throat cancer Maternal Grandfather Prostate cancer Family history of problems with anesthesia: No Surgical History Surgical History History of repair of hiatal hernia History of surgery on lower extremity History of carpal tunnel release of both wrists Hx of vaginal hysterectomy Hx of gastric bypass History of lumbar fusion H/O colonoscopy History of esophagogastroduodenoscopy (EGD) Hx laparoscopic cholecystectomy Hx of bariatric surgery Bariatric surgery status History of Problems with Anesthesia: No Social History Social History Are you a primary animal caretaker supervisor to a significant other at home: No Do you presently have visiting nurse or other home services: Yes ([facility]) Alcohol intake: never Patient Tobacco Use Status: Former Tobacco user Years Smoked: 3 Use of substances other than those prescribed or required for medical reasons: Yes Substance Use Type: Marijuana Substance Use Type Other:: CBD Substance Use Frequency: Daily Have you been hit, kicked, punched, or otherwise hurt by someone within the past year? If so, by whom?: No Are you DNR?: Yes Advance Directives: Yes Advance Directives Information Provided: Yes Advance Directives on File: No Recently lost weight without trying: No Eating poorly because of decreased appetite: No Nutrition Risks: No Nutritional Risk Patient : No : No Poor oral hygiene: Yes (missing teeth x 2) Meds Allergies Allergy/AdvReac Type Severity Reaction Status Date / Time No Known Allergies Allergy Verified 05/17/24 10:14 Home Medications ?Medication ?Instructions ?Recorded ?Confirmed ?Last Taken ?Type cholecalciferol (vitamin D3) 50 50 mcg PO DAILY 08/12/22 04/30/24 Unknown History mcg (2,000 unit) capsule cyanocobalamin (vitamin B-12) 1,000 mcg PO DAILY 08/12/22 04/30/24 Unknown History 1,000 mcg tablet amitriptyline 10 mg tablet 30 mg PO BEDTIME 04/30/24 04/30/24 Unknown History aspirin 81 mg tablet,delayed 81 mg PO DAILY 04/30/24 04/30/24 05/11/24 History release erenumab-aooe 140 mg/mL 140 mg subcut QMONTH 04/30/24 04/30/24 Unknown History subcutaneous auto-injector (Aimovig Autoinjector) fluoxetine 40 mg capsule 40 mg PO DAILY 04/30/24 04/30/24 Unknown History lamotrigine 25 mg tablet 100 mg PO BEDTIME 04/30/24 04/30/24 Unknown History methenamine hippurate 1 gram tablet 1 g PO BID 04/30/24 04/30/24 Unknown History mirabegron 50 mg tablet,extended 50 mg PO DAILY 04/30/24 04/30/24 Unknown History release 24 hr (Myrbetriq) multivitamin 1 tab PO DAILY 04/30/24 04/30/24 Unknown History pantoprazole 40 mg tablet,delayed 40 mg PO DAILY 04/30/24 04/30/24 Unknown History release ropinirole 1 mg tablet 1 mg PO QAM for restless legs 04/30/24 04/30/24 Unknown History ropinirole 2 mg tablet,extended 2 mg PO BEDTIME 04/30/24 04/30/24 Unknown History release 24 hr sumatriptan succinate 100 mg tablet 100 mg PO BID PRN migraine headache 04/30/24 04/30/24 Unknown History Exam Height,Weight and Vital Signs: Height 5 ft 5 in Weight 83.915 kg Last Vital Signs Pulse 68 04/30/24 12:26 Resp 18 04/30/24 12:26 BP 110/67 04/30/24 12:26 Pulse Ox 98 04/30/24 12:26 O2 Del Method Room Air 04/30/24 12:26 Pertinent Lab Results Pertinent Lab Results: Laboratory Tests 02/08/24 14:17 WBC 3.9 L Hgb 12.7 Hct 38.9 Plt Count 235 Sodium 142 Potassium 4.0 Chloride 108 Carbon Dioxide 29 BUN 13 Creatinine 0.92 Narrative Narrative: ECHO 04/2024 Summary 1) The LV systolic function is low normal. The left ventricular ejection fraction is 50-55% by visual assessment. There are no definite regional wall motion abnormalities; apex is not well visualized due to foreshortening. 2) The right ventricle is normal in size. Right ventricular systolic function appears preserved. 3) No significant valvular abnormalities. Comparison No prior study available for comparison. EKG 01/2024 Ventricular Rate: 64 BPM Atrial Rate: 64 BPM P-R Interval: 162 ms QRS Duration: 86 ms Q-T Interval: 432 ms QTC Calculation(Bazett): 445 ms P [place]: 29 degrees R [place]: -1 degrees T [place]: 12 degrees Normal sinus rhythm Normal ECG When compared with ECG of 19-AUG-2022 14:14, No significant change was found Confirmed by BOAZ MONGE, [facility] ([id number]) on 01/10/2024 12:39:23 PM November 2023 Brain MRI w/o- 1. No acute intracranial abnormality. 2. Partially empty sella and small right and possibly also left petrous apex cephaloceles that can be correlated clinically for recent intracranial pressure/pseudotumor cerebri. 3. Mild age-appropriate global cerebral volume loss. Nonspecific white matter disease, presumably chronic microangiopathy Airway Mallampati Class: II TM Dist: >3cm Neck ROM: Limited (D/t pain) Heart: RRR Lungs: CTAB Assessment and Plan Assessment Anesthesia Assessment: Anesthesia Plan Discussed and PAT Visit Final Anesthetic Review Family History of Problems with Anesthesia: No History of Problems with Anesthesia: No Documented by User: Yanci Flanagan MD 05/17/24 11:10 [facility] Past Medical History Medical History Kidney stones White matter disease Fibromyalgia Memory loss History of traumatic head injury Numbness TIA (transient ischemic attack) Seizures SOB (shortness of breath) Incontinent of urine Sleep apnea Urinary urgency Syncope Obese Migraine Back pain Hyperlipidemia Frequent falls Colitis Chronic kidney disease, stage 2, mildly decreased GFR Atherosclerosis of coronary artery Anxiety Alkaline phosphatase raised Abrasion of face Concussion Confusion Hiatal hernia Family History Family History Father Lung cancer Sister Breast cancer Skin cancer of arm Mother COPD (chronic obstructive pulmonary disease) Paternal Grandmother Cancer Paternal Grandfather Throat cancer Maternal Grandfather Prostate cancer Family history of problems with anesthesia: No Surgical History Surgical History History of repair of hiatal hernia History of surgery on lower extremity History of carpal tunnel release of both wrists Hx of vaginal hysterectomy Hx of gastric bypass History of lumbar fusion H/O colonoscopy History of esophagogastroduodenoscopy (EGD) Hx laparoscopic cholecystectomy Hx of bariatric surgery Bariatric surgery status History of Problems with Anesthesia: No Social History Social History Are you a primary animal caretaker supervisor to a significant other at home: No Do you presently have visiting nurse or other home services: Yes ([facility]) Alcohol intake: never Patient Tobacco Use Status: Former Tobacco user Years Smoked: 3 Use of substances other than those prescribed or required for medical reasons: Yes Substance Use Type: Marijuana Substance Use Type Other:: CBD Substance Use Frequency: Daily Have you been hit, kicked, punched, or otherwise hurt by someone within the past year? If so, by whom?: No Are you DNR?: Yes Advance Directives: Yes Advance Directives Information Provided: Yes Advance Directives on File: No Recently lost weight without trying: No Eating poorly because of decreased appetite: No Nutrition Risks: No Nutritional Risk Patient : No : No Poor oral hygiene: Yes (missing teeth x 2) Meds Allergies Allergy/AdvReac Type Severity Reaction Status Date / Time No Known Allergies Allergy Verified 05/17/24 10:14 Home Medications ?Medication ?Instructions ?Recorded ?Confirmed ?Last Taken ?Type cholecalciferol (vitamin D3) 50 50 mcg PO DAILY 08/12/22 04/30/24 Unknown History mcg (2,000 unit) capsule cyanocobalamin (vitamin B-12) 1,000 mcg PO DAILY 08/12/22 04/30/24 Unknown History 1,000 mcg tablet amitriptyline 10 mg tablet 30 mg PO BEDTIME 04/30/24 04/30/24 Unknown History aspirin 81 mg tablet,delayed 81 mg PO DAILY 04/30/24 04/30/24 05/11/24 History release erenumab-aooe 140 mg/mL 140 mg subcut QMONTH 04/30/24 04/30/24 Unknown History subcutaneous auto-injector (Aimovig Autoinjector) fluoxetine 40 mg capsule 40 mg PO DAILY 04/30/24 04/30/24 Unknown History lamotrigine 25 mg tablet 100 mg PO BEDTIME 04/30/24 04/30/24 Unknown History methenamine hippurate 1 gram tablet 1 g PO BID 04/30/24 04/30/24 Unknown History mirabegron 50 mg tablet,extended 50 mg PO DAILY 04/30/24 04/30/24 Unknown History release 24 hr (Myrbetriq) multivitamin 1 tab PO DAILY 04/30/24 04/30/24 Unknown History pantoprazole 40 mg tablet,delayed 40 mg PO DAILY 04/30/24 04/30/24 Unknown History release ropinirole 1 mg tablet 1 mg PO QAM for restless legs 04/30/24 04/30/24 Unknown History ropinirole 2 mg tablet,extended 2 mg PO BEDTIME 04/30/24 04/30/24 Unknown History release 24 hr sumatriptan succinate 100 mg tablet 100 mg PO BID PRN migraine headache 04/30/24 04/30/24 Unknown History Exam Height,Weight and Vital Signs: Height 5 ft 5 in Weight 83.915 kg Last Vital Signs Pulse 68 04/30/24 12:26 Resp 18 04/30/24 12:26 BP 110/67 04/30/24 12:26 Pulse Ox 98 04/30/24 12:26 O2 Del Method Room Air 04/30/24 12:26 Vital Signs Temp Pulse Resp BP Pulse Ox O2 Del Method 05/17/24 10:34 98.0 F 59 18 126/80 98 Room Air Airway Mallampati Class: II TM Dist: >3cm Neck ROM: Limited (Pain) Partial: Upper Loose/Missing/Broken Teeth: Yes (Some missing teeth. Top partial dentures. Denies broken or loose teeth) Heart: RRR Lungs: CTAB Assessment and Plan Assessment Anesthesia Assessment: Anesthesia Plan Discussed, PAT Visit and Chart Reviewed Final Anesthetic Review Family History of Problems with Anesthesia: No History of Problems with Anesthesia: No NPO: Yes ASA Class: III Final Preanesthetic Review: No Changes in Pt Med Stat, Meds/Allgs Chart Rev iewed, Consent Obtained/Reviewed and Anes Risks/Benef Reviewed Patient Risk: Intermediate Procedure Risk: Low Assessment/Block/Sedation in SS: Assess/Block/Sedation-SS Anesthetic Plan Anesthetic Plan: GA Disposition: Standard PACU
[2024-05-17] VITALS (23 sets, daily range): BP systolic 96–126; BP diastolic 46–88; PULSE 52–80; RESP 12–24; TEMP 36.2–37; O2SAT 95–100
[2024-05-17] MEDS: Lactated Ringers 1,000 ML 100 ML IVCONT (10:24)
[2024-05-17] MEDS: methocarbamoL 750 MG TABLET PO (10:32)
[2024-05-17] MEDS: Gabapentin 300 MG CAPSULE PO (10:32)
--- NOTE | 2024-05-17 10:38 | MHC.SHP ---
Pre-Procedural Eval Section A - 24 Hr Update-Section A only Date of Service: 05/17/24 The patient is an INPATIENT: No Section B - Complete if H&P > 30 days Chief Complaint: Other bursal cyst,Radiculopathy, lumbar region Details of Present Illness: Synovial cyst resection for left lumbar radiculopathy Allergies: Allergies Allergy/AdvReac Type Severity Reaction Status Date / Time No Known Allergies Allergy Verified 05/17/24 10:14 Review of Systems Sugical H&P ROS: Negative: Constitution, Cardiovascular, Respiratory, Neurological, Psychiatric, Hem-Onc, Allergic/Immunologic, Gastrointestinal, Genitourinary, Musculoskeletal, Integumentary, Endocrine and Eyes/Ears/Nose/Throat Exam Surgical H&P Exam: Normal: HEENT, Normal: Heart, Normal: Lungs, Normal: Extremities, Normal: Abdomen, Normal: Skin and Normal: Neurological (Awake, alert, oriented) Plan Diagnosis/Plan: Unchanged I have reviewed the history and physical and performed a pertinent physical examination on my patient. No changes have occurred unless specified. Left Synovial cyst resection to decompress S1 nerve root Time Spent With Patient Time: Total time managing care of this patient today _5___ minutes.
--- NOTE | 2024-05-17 11:19 | P.DS_ITS ---
DS: Providers Provider Date of Service: 05/17/24 Date of discharge: 05/17/24 Primary care physician: Shaun Chaudhry DO Admitting clinician: Benjamin Menendez DS: Diagnosis Discharge Diagnosis (1) Lumbar back pain with radiculopathy affecting left lower extremity: Status: Acute DS: Summary Time Attestation Discharge Coordination Time (in mins): 5 Quality: Safe Use of Opioids Does Pt have an Active Cancer Diagnosis on the Problem List?: No Quality: Stroke Does the patient have a stroke diagnosis?: No Physical Exam Vital Signs: Vital Signs: Last Vital Signs Temp 98.0 F 05/17/24 10:34 Pulse 59 05/17/24 10:34 Resp 18 05/17/24 10:34 BP 126/80 05/17/24 10:34 Pulse Ox 98 05/17/24 10:34 O2 Del Method Room Air 05/17/24 10:34 BMI result Body Mass Index 30.8 Discharge Plan Discharge Patient Disposition: Home, Self-Care Referrals: Shaun Chaudhry DO [Primary Care Provider] - 1 Week Discharge Medications: New docusate sodium [Colace] 100 mg capsule 100 mg PO BID Qty: 20 0RF hydromorphone [Dilaudid] 2 mg tablet 2 mg PO Q6H PRN (Reason: pain) Qty: 20 0RF Rx Instructions: Partial Fill upon patient request. Continued clonazepam 1 mg tablet 1 mg PO BID 30 Days Qty: 60 3RF gabapentin 300 mg capsule 300 mg PO BID 90 Days Qty: 180 1RF multivitamin Tablet 1 tab PO DAILY methenamine hippurate 1 gram tablet 1 g PO BID pantoprazole 40 mg Tablet,Delayed Release (Dr/Ec) 40 mg PO DAILY mirabegron [Myrbetriq] 50 mg Tablet Extended Release 24 Hr 50 mg PO DAILY fluoxetine 40 mg capsule 40 mg PO DAILY sumatriptan succinate 100 mg tablet 100 mg PO BID PRN (Reason: migraine headache) Rx Instructions: 1 tab at onset of migraine, may repeat in 2 hours (max 2 tabs per day/4 per week) amitriptyline 10 mg tablet 30 mg PO BEDTIME ropinirole 2 mg tablet extended release 24 hr 2 mg PO BEDTIME Aimovig Autoinjector 140 mg/mL auto-injector 140 mg subcut QMONTH lamotrigine 25 mg tablet 100 mg PO BEDTIME ropinirole 1 mg tablet 1 mg PO QAM cyanocobalamin (vitamin B-12) 1,000 mcg tablet 1,000 mcg PO DAILY cholecalciferol (vitamin D3) 50 mcg (2,000 unit) capsule 50 mcg PO DAILY Held aspirin 81 mg Tablet,Delayed Release (Dr/Ec) 81 mg PO DAILY Hold Instructions: Resume on 05/24/24. You may resume aspirin 7 days after surgery Discharge Orders: Discharge Order (Routine); Ordered 05/17/24 Ordered By: Cleveland Jaramillo Diet: Advance to usual diet Activity on Discharge: As tolerated Activity Restrictions/Additional Instructions: After your spinal surgery we ask you to observe the following restrictions/guidelines: Activity: It is normal to feel some discomfort as you increase your activity, but that will improve with time. We ask you avoid heavy lifting or acitivities that cause pain. As a general rule, 8lbs is a safe limit for lifting right after surgery. Walk as much as you feel comfortable but not to exhaustion. You will feel extra tired the first few days after surgery. Stay well hydrated. It is OK to walk up and down stairs You may return to driving when you are off narcotics (such as vicodin, oxycodone, dilaudid, etc), and you are back to normal functional capacity. If you have any concerns please check with office before driving. Return to work is specific to each patient and each surgery, so please speak with your doctor/PA at first follow up. Please bring paperwork such as FMLA at that time if you need it filled out. Medications: You may resume aspirin 7 days after surgery For optimum pain control, it is best to start with a combination of 500 mg of Tylenol every 4 hours with 600 mg of Motrin every 8 hours, and use narcotics as needed in between for breakthrough pain. We will give you a short supply of narcotics after surgery (usually one weeks worth). If you need more please call the office but do not use more than prescribed. You will need to give our office 48 hours notice if you need narcotics refilled and we do not fill narcotics on weekends or evenings. If you are on a narcotic, it is a good idea to take a stool softener such as colace or senna to avoid constipation If you take blood thinner such as aspirin, Plavix, Coumadin, Effient, Eliquis etc for conditions such as Afib, DVT, Pulmonary embolus, coronary disease, stents etc please speak with your surgeon about specific details as to when you can resume these medications. You can resume NSAIDs on post op day 1 (eg: Motrin, Naproxen, etc). Follow up: Please call the office, , after surgery to arrange a 3 week follow up for wound check. Wound Care: You may remove your dressing on the first day after surgery. ?You may ?leave open to air. Please do not remove the steri strips underneath. they will fall off on their own in one week. IT IS NORMAL FOR THE WOUND TO OOZE OR BE BLOODY FOR A FEW DAYS AFTER SURGERY. ?IF THIS HAPPENS JUST PLACE NEW DRESSING OVER IT TO AVOID STAINING CLOTHES. You may shower on post op day # 1 We ask that you do not let the water soak the wound. If it does get wet, just towel dry lightly. Please do not scrub your incision or place any type of chemical/ointment on the wound. No tub baths, pools or jacuzzis for one month. If you have any leaking or redness from your wound, or fevers, please call office Print Language: Croatian
--- NOTE | 2024-05-17 12:23 | W.PM.OPN ---
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 I have explained the nature, purpose and benefits of the operation. I have discussed the risks and benefit of the operation including possible complications or adverse events with patient/family. Alternative(s) were discussed with the patient with their relative benefits and risks as well as the consequences of not accepting the operation were included in obtaining consent. Surgeon: FANY SAMAYOA MD, PHD Procedure Assisted By: Cleveland diaz Description of Procedure This 59-year-old female is suffering from a left S1 radiculopathy due to a extradural benign mass compressing the S1 nerve root. The patient was offered a removal of the mass to decompress the nervous structure. The procedure complications were explained. The patient was consented. The patient was brought to the operating room and endotracheally intubated. The patient was turned in prone position on the Wang frame. Prep and drape was done followed by timeout. Physician assistant professor of mathematics provided access. A mid lumbar incision was made followed by release of the paravertebral muscle on the left side to expose the L5-S1 lamina and facet joint. An intraoperative x-ray was obtained to confirm the correct level. The microscope was brought in. I took over the procedure. The high-speed drill was used to do a L5-S1 laminotomy. The flavum ligament was opened to expose the underlying thecal sac and start of the S nerve root. The S1 nerve root was encased in cystic material that was carefully dissected from the S1 nerve root with a micro nerve hook. Fragments of the cyst were removed with a pituitary. In the end the S1 nerve root was normal appearing of which trajectory. A long the nerve root could be easily passed, a sign of adequate decompression of the nerve root . The microscope was removed. Hemostasis was done. Incision was closed in 2 layers. Steri-Strips were used to approximate incision. An OpSite with Tegaderm was used to cover the incision. All sponge needle counts were correct. Patient was extubated and transported in stable is to recovery room. Anesthesia: General Estimated Blood Loss (ml): Minimal Duration of Surgery: Under 60 Minutes Postoperative Plan: Discharge to home
[2024-05-17] MEDS: fentaNYL citrate/PF 100 MCG/2 ML VIAL 25 MCG IVPUSH ×4 (12:55→13:16)
[2024-05-17] MEDS: HYDROmorphone HCl 0.5 MG/0.5 ML SYRINGE IVPUSH ×3 (13:41→13:53)
[2024-05-17] MEDS: HYDROmorphone HCl 2 MG TABLET PO (14:15)
== END 2024-05-17 16:50 | disposition home or self-care (01) ==
PROVIDERS: PCP Family Medicine; Visit Provider Neurological Surgery
PROC: (CPT 63267; principal; 2024-05-17 12:50)
DX: M71.38 Other bursal cyst, other site (principal); M54.16 Radiculopathy, lumbar region; G47.33 Obstructive sleep apnea (adult) (pediatric)
CPT/HCPCS: 63267; J0131; J0690; J1100; J1171; J2003; J2250; J2405; J2704; J3010

== ENCOUNTER → 2024-05-17 09:59 | Outpatient (BNV) | payer MEDICARE, SELFPAY | PROVIDERS: PCP Family Medicine; Visit Provider Neurological Surgery | DX: M54.16 Radiculopathy, lumbar region (principal) | CPT/HCPCS: 63267; 69990; 99499 ==

== ENCOUNTER 2024-06-11 10:59 | Outpatient (AMB) | payer MEDICARE, SELFPAY ==
--- NOTE | 2024-06-11 11:02 | HO.SPINEOV ---
Intake Visit Reasons: 1st post op Intake Note: Ms. Amaya is here today for her 1st Post op. Line Runner Required: No Allergies No Known Allergies Allergy (Verified 06/11/24 11:03) Assessment & Plan Assessment & Plan (1) Lumbar back pain with radiculopathy affecting left lower extremity: Code(s): M54.16 - Radiculopathy, lumbar region Category: Medical Plan Procedure: L5-S1 Laminotomy for removal of extradural benign mass Zaria comes in today for her 1st postoperative visit. She reports she is overall vsatisfied with the surgery and feels much better than she did preoperatively. She did have an episode of pain flare-up 1st few days after surgery upon exiting a vehicle. She found exiting vehicles is the most difficult for her positionally. The patient reports she is up walking around and completing the majority of her ADLs with the assistance of a cane. She reports that she no longer suffers from her left-sided shooting radiculopathy. She still reports mild pain, with good relief with pain medication. She is only intermittently using her dilaudid when her pain is very bad. No new neurological deficits. Patient is able to ambulate well, rises from a seated position without difficulty. Incision sites are closed, well healing, with no signs of drainage. We will follow-up with the patient in 6 weeks for their 2nd postoperative visit. Suresh Menendez MD,PhD [facility] Coding Level of Care Code Global (31432) Diagnoses Lumbar back pain with radiculopathy affecting left lower extremity M54.16
== END 2024-06-11 11:31 | disposition home or self-care (01) ==
PROVIDERS: PCP Family Medicine; Visit Provider Physician Assistant
DX: M54.16 Radiculopathy, lumbar region (principal)
CPT/HCPCS: 99024

== ENCOUNTER → 2024-06-11 10:59 | Outpatient (BNVA) | payer MEDICARE, SELFPAY | PROVIDERS: PCP Family Medicine; Visit Provider Physician Assistant | DX: M54.16 Radiculopathy, lumbar region (principal) | CPT/HCPCS: 99212 ==

== ENCOUNTER 2024-07-30 14:44 | Outpatient (REF) | payer MEDICARE, SELFPAY ==
--- NOTE | ~2024-07-30 | XR_ITS ---
EXAMINATION: Lumbar spine 4 views. CLINICAL INDICATION: Low back pain clinical indication: Low back pain. COMPARISON: MRI lumbar spine 03/29/2024. FINDINGS: A disc prosthesis at L4-5 and L3-4 disc levels stabilized with bilateral pedicle screws and interconnecting rods for fusion. On flexion-extension view there is no subluxation seen. Diffuse disc levels. There is loss of L2-3 and L5-S1 disc heights with mild ventral spondylosis at L2-3 disc level. The paravertebral soft tissues are normal. SI joints are symmetrical and normal. XR/XR lumbar spine 4V min IMPRESSION: Disc prostheses at L3-4 and L4-5 disc level stabilized with pedicle screws from L3 through L5 vertebra and interconnecting rods. On flexion-extension views there is no subluxation at he fused levels. Degenerative disc changes L2-3 and L5-S1 disc levels Electronically signed by: John Levin MD 07/30/2024 04:38 PM [facility]
== END 2024-07-30 14:45 | disposition home or self-care (01) ==
LOC: HO.HOSX 14:44
PROVIDERS: PCP Family Medicine; Visit Provider Physician Assistant
DX: M54.50 Low back pain, unspecified (principal)
CPT/HCPCS: 72110; 99212

== ENCOUNTER 2024-07-30 14:44 | Outpatient (AMB) | payer MEDICARE, SELFPAY ==
--- NOTE | 2024-07-30 14:48 | A.SPINEOV_ITS ---
Intake Visit Reasons: 2nd post op Intake Note: Ms. Amaya is here today for her 2nd post op visit. Stock Chaser Required: No Allergies No Known Allergies Allergy (Verified 07/30/24 14:52) Assessment & Plan Assessment & Plan (1) Low back pain: Code(s): M54.50 - Low back pain, unspecified Category: Medical Plan Mrs Amaya is here in follow-up, she is doing great from the standpoint of her synovial cyst but she fell last week and has had back pain in the lower lumbar region since that time. Apparently her dog jumped up on her and she fell to the ground. She has been dealing with a brain condition called white matter disease which affects her ability to balance herself and her thinking and cognition. This has been a chronic decline with this condition apparently. Falling is not unusual for her. 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 She is able to stand up out of her own with the help of a walker and her strength is grossly full. I will send her for an x-ray just to check the previous hardware has not fractured or that she has a compression fracture at L5. If there is anything concerning I will call her. Cleveland Menendez MD,PhD [facility] Orders: Orders XR lumbar spine 4V min Today M54.50 - Low back pain, unspecified Coding Level of Care Code Global (98946) Diagnoses Low back pain M54.50
--- OUTSIDE RECORDS SUMMARY | 2024-07-30 19:06 | XMS_ITS | Clinical Summary ---
[facility] Organization [facility] it Address [address] [place] [address] Care Team Providers Care Plumbing Instructor Name Role Phone Shaun Chaudhry DO Primary Care Provider [phone] Medications Medication Sig Dispensed Refills Start Date End Date Status pantoprazole (PROTONIX) 40 mg EC tabletIndications:Karime roesophageal reflux disease without esophagitis Take 1 tablet (40 mg total) by mouth 1 (one) time each day. Do not crush, chew, or split. 90 each 05/22/2024 08/20/2024 Active Encounters Date Type Department Care Team Description 05/03/2024 8:58 PM EDT - 05/04/2024 6:26 AM EDT Emergency [facility] Emergency [address] [place] [address] Andrea Valencia PA Garvin, Meredith Kate, MD [place]: [place] [facility] [place] Surgical History Surgery Date Site/Laterality Comments HYSTERECTOMY PROCEDURE: HISTORICAL HYSTERECTOMY COLONOSCOPY 02/25/2014 PROCEDURE: HISTORICAL COLONOSCOPY GASTRIC BYPASS PROCEDURE: [place] GASTRIC RSTCV W/BYP W/SM INT RCNSTJ LIMIT ABSRPJ FEMUR FRACTURE SURGERY PROCEDURE: [place] OPEN TX FEMORAL FRACTURE DISTAL MED/LAT CONDYLE HERNIA REPAIR PROCEDURE: HISTORICAL HERNIA REPAIR/UMB CHOLECYSTECTOMY PROCEDURE: [place] CHOLECYSTECTOMY OTHER SURGICAL HISTORY PROCEDURE: [place] SPINE DEVICE IMPLANT SURGERY OTHER SURGICAL HISTORY 06/30/2017 PROCEDURE: [place] UNLISTED VASCULAR ENDOSCOPY PROCEDURE LEG SURGERY PROCEDURE: HISTORICAL LEG SURGERY; COMMENT: femur of the left leg. BACK SURGERY PROCEDURE: HISTORICAL BACK SURGERY; COMMENT: Laminectomy (L4,L5) CHOLECYSTECTOMY PROCEDURE: HISTORICAL CHOLECYSTECTOMY BACK SURGERY 06/2020 PROCEDURE: HISTORICAL BACK SURGERY; COMMENT: Back Surgery Fusion OTHER SURGICAL HISTORY PROCEDURE: HISTORY OTHER; COMMENT: Surgery for a hiatal hernia Medical History Medical History Date Comments Hypertension DX:Hypertension Hyperlipemia DX:Hyperlipemia Post concussion syndrome DX:Post concussion syndrome; COMMENT: with memory loss Vertigo DX:Vertigo Fibromyalgia DX:Fibromyalgia Stage 3 chronic kidney disea se (CMS/HCC) DX:Stage 3 chronic kidney di sease (HCC) Tinnitus DX:Tinnitus NAFLD (nonalcoholic fatty li regan disease) 01/22/2020 DX:NAFLD (nonalcoholic fatty liver disease) Depression 01/22/2020 DX:Depression RAOUL (obstructive sleep apnea) DX :RAOUL (obstructive sleep apnea) CKD (chronic kidney disease) stage 3, GFR 30-59 ml/min (CMS/HCC) 01/22/2020 DX:CKD (chronic kidney dise ase) stage 3, GFR 30-59 ml/min ([facility]) Esophageal dysmotility 01/22/2020 DX:Esopha geal dysmotility GERD (gastroesophageal reflux disease) DX:GERD (gastroesophageal reflux disease) Major depressive disorder, s inés episode, unspecified DX:Major depressive disorder , single episode, unspecified Obesity DX:Obesity Tremor, unspecified DX:Tremor, u nspecified Vestibular neuronitis, unspecified ear DX:Vestibular neuronitis, unspecified ear Other specified diseases of liver DX:Other specified diseases of liver Family History Medical History Relation Name Comments Lung cancer Father COPD Mother Heart attack Paternal Grandmother Breast cancer Sister 49-50 years Colon cancer Neg Hx Ovarian cancer Neg Hx Relation Name Status Comments Father Mother Alive Paternal Grandmother Sister Social History Tobacco Use Types Packs/Day Years Used Date Smoking Tobacco: Former Smokeless Tobacco: Never Alcohol Use Standard Drinks/Week Comments Not Currently 0 (1 standard drink = 0.6 oz pur e alcohol) Sex and Gender Information Value Date Recorded Sex Assigned at Not on file Gender Identity Not on file Sexual Orientation Not on file Obstetrics History Plan of Treatment Health Maintenance Due Date Last Done Comments Breast Cancer Screening 1965 COVID-19 Vaccine (#1) 1968 DTaP,Tdap,and Td Vaccines (1 - Tdap) 1982 Hepatitis A Vaccines (1 of 2 - Risk 2-dose series) 1982 Cervical Cancer Screening: P ap Smear 1984 Zoster Vaccines (1 of 2) 2013 Cholesterol Screening (Lipid Panel) 06/06/2022 Colorectal Cancer Screening: Colonoscopy 06/06/2022 Depression Screening 06/06/2022 HIV Screening 06/06/2022 Hepatitis C Screening 06/06/2022 Social Influencers of Health Screening 06/06/2022 Hypertension/CHF/CAD Annual BMP Blood Test 06/17/2022 Hepatitis B Vaccines (1 of 3 - Risk 3-dose series) 2023 RSV Immunization Patients 60 + Years Old (1 - Risk 60-74 years 1-dose series) 2023 Influenza Vaccine (#1) 2024 HIB Vaccines Aged Out No longer eligi ble based on patient's age to complete this topic HPV Vaccines Aged Out No longer eligi ble based on patient's age to complete this topic IPV Vaccines Aged Out No longer eligi ble based on patient's age to complete this topic MMR Vaccines Aged Out No longer eligi ble based on patient's age to complete this topic Meningococcal ACWY Vaccine Aged Out N o longer eligible based on patient's age to complete this topic Pneumococcal Vaccine: Pediat rics (0 to 5 Years) and At-Risk Patients (6 to 64 Years) Aged Out No longer eligible b ased on patient's age to complete this topic RSV Immunization Patients Un faviola 20 months Aged Out No longer eligible b ased on patient's age to complete this topic Varicella Vaccines Aged Out No longer eligible based on patient's age to complete this topic Procedures Procedure Name Priority Date/Time Associated Diagnosis Comments ELECTROCARDIOGRAM Routine 05/04/2024 9:0 4 AM EDT CHEST ROUTINE 2 VIEWS Routine 024 7:43 AM EDT US LIVER Routine 05/04/2024 3:57 AM EDT from Last 3 Months Results * Electrocardiogram (05/04/2024 9:04 AM EDT) 05/04/2024 4:24 AM EDT Narrative CV HISTORICAL RESULTS - 05/04/2024 9:04 AM EDT [facility] Cardiology Department [address] [place] [address] ?? [address] Cardiology Patient: ?? ZARIA AMAYA Unit #: ?? [id number] Location: ?? SPER Status: ?? DEP ER Date Of : ?? 1965 ?? 59 ?? F Ordering Physician: ?? ROSA CHANDLER DO Order Date/Time: ??05/04/24423 Performed Date/Time: ??05/04/24 0436 Electrocardiogram Test Reason : Pain Blood Pressure : / mmHG Vent. Rate : 048 BPM ? Atrial Rate : 048 BPM P-R Int : 176 ms ?QRS Dur : 092 ms QT Int : 512 ms ? P-R-T Axes : 023 008 013 degrees QTc Int : 457 ms Sinus bradycardia Prolongation of QT interval When compared with ECG of 02-NOV-2022 04:22, Vent. rate has decreased BY ??23 BPM Confirmed by Mike HDZ YUFENG ([id number]) on 05/04/2024 9:04:29 AM Referred By: ROSA CHANDLER ? Confirmed By:BENJAMIN HDZ M.D. Dictating Provider: ??BENJAMIN HDZ MD, PHD Transcribed by: ?? ShirinZ Transcribed Date: Procedure Note Benjamin Hdz MD - 05/05/2024 [facility] Cardiology Department [address] [place] [address] [place] [address] Cardiology Patient: ZARIA AMAYA Unit #: [id number] [place] [facility] [place]: DEP ER Date Of : 1965 59 F Ordering Physician: ROSA CHANDLER DO Order Date/Time: 05/04/24423 Performed Date/Time: 05/04/24435 Electrocardiogram Test Reason : Pain Blood Pressure : / mmHG Vent. Rate : 048 BPM Atrial Rate : 048 BPM P-R Int : 176 ms QRS Dur : 092 ms QT Int : 512 ms P-R-T Axes : 023 008 013 degrees QTc Int : 457 ms Sinus bradycardia Prolongation of QT interval When compared with ECG of 02-NOV-2022 04:22, Vent. rate has decreased BY 23 BPM Confirmed by Mike HDZ YUFENG ([id number]) on 05/04/2024 9:04:29 AM Referred By: ROSA CHANDLER Confirmed By:BENJAMIN HDZ M.D. Dictating Provider: BENJAMIN HDZ MD, PHD Transcribed by: GEM Transcribed Date: Rosa Chandler MD CV HISTORICAL CO NV PROCEDURES CV HISTORICAL RESULTS * CHEST ROUTINE 2 VIEWS (05/04/2024 7:43 AM EDT) Anatomical Region Laterality Modality Radiographic Trish ging 05/04/2024 4:24 AM EDT Narrative 05/04/2024 7:43 AM EDT [facility] Diagnostic Imaging Department [address] [place] [address] Patient: ??SANDRA AMAYAEEN ?/Age/Sex: 1965 - 59 - F Unit#: ??[id number] ? Location/Status: ??SPER/DEP ER ? Mnemonic/Ordering Site: ??CHESTXR/SPMAIN Ordering Physician: ??ROSA CHANDLER DO Chest Routine 2 Views - 05/04/24 - 0927 Report Status:Signed EXAMINATION: Chest 2 views. CLINICAL INDICATION: Nonsmoker. SOB. Elevated LFTs. COMPARISON: Chest 03/08/2020. FINDINGS: The lungs are well-expanded and clear acute process. The heart size and pulmonary vascularity is normal. No gross bony abnormality seen. IMPRESSION: Unremarkable chest exam. No change from 03/08/2020 Dictating Physician: ??JOSE E WAYNE Electronically Signed by: ??JOSE E WAYNE Dic Date/Time: ??05/04/24 0739 Sign date/Time: ??05/04/24 0743 Procedure Note Jose E Wayne MD - 05/05/2024 [facility] Diagnostic Imaging Department [address] [place] [address] Patient: ZARIA AMAYA./Age/Sex: 1965 - 59 - F Unit#: [id number] Location/Status: SPER/DEP ER Mnemonic/Ordering Site: CHESTXR/SPMAIN Ordering Physician: ROSA CHANDLER DO DR Chest Routine 2 Views - 05/04/24 - 4987 Report Status:Signed EXAMINATION: Chest 2 views. CLINICAL INDICATION: Nonsmoker. SOB. Elevated LFTs. COMPARISON: Chest 03/08/2020. FINDINGS: The lungs are well-expanded and clear acute process. The heartsize and pulmonary vascularity is normal. No gross bony abnormality seen. IMPRESSION: Unremarkable chest exam. No change from 03/08/2020 Dictating Physician: JOSE E WAYNE Electronically Signed by: JOSE E WAYNE Dic Date/Time: 05/04/2439 Sign date/Time: 05/04/24742 Rosa Cahndler MD IMG XR PROCEDURE S * US LIVER (05/04/2024 3:57 AM EDT) Anatomical Region Laterality Modality Ultrasound 05/04/2024 2:46 AM EDT Narrative 05/04/2024 3:57 AM EDT [facility] Diagnostic Imaging Department [address] [place] [address] Patient: ??ZARIA AMAYA ?/Age/Sex: 1965 - 59 - F Unit#: ??[id number] ? Location/Status: ??SPER/REG ER ? Mnemonic/Ordering Site: ??LIVER/SPMAIN Ordering Physician: ??ROSA CHANDLER DO Liver - 05/04/24 - 0321 Report Status:Signed US abdomen limited Comparison: None Findings: Visualization of the pancreas is obscured. Coarsened hepatic echogenicity a finding which can indicate hepatocellular disease including steatosis. The liver measures 14.3 cm. There is no intrahepatic bile duct dilatation. The mid aspect of the CBD measures 10 mm. The distal common bile duct measures 6 mm. Reported cholecystectomy. The main portal vein is antegrade and demonstrates hepatopetal flow. The right kidney measures 8.3 cm in length. No ascites. IMPRESSION: 1. Coarsened hepatic echogenicity a finding which can indicate hepatocellular disease including steatosis. 2. Reported cholecystectomy. 3. Mildly dilated common bile duct measuring up to 10 mm. Findings are likely related to prior cholecystectomy. This document has been electronically signed by: Jaime Balderas DO on 05/04/2024 03:57:10 Dictating Physician: ??JAIME BALDERAS DO Electronically Signed by: ??JAIME BALDERAS DO Dic Date/Time: ??05/04/24 0357 Sign date/Time: ??05/04/24 [id number] Procedure Note Jaime Balderas MD - 05/05/2024 [facility] Diagnostic Imaging Department [address] [place] [address] [id number] Patient: MIGUEL ÁNGELSILVERZARIASTACIA JenkinsB./Age/Sex: 1965 - 59 - F Unit#: [id number] Location/Status: SPER/REG ER Mnemonic/Ordering Site: LIVER/SPMAIN Ordering Physician: ROSA CHANDLER DO US Liver - 05/04/24 - 0321 Report Status:Signed US abdomen limited Comparison: None Findings: Visualization of the pancreas is obscured. Coarsened hepatic echogenicity a finding which can indicatehepatocellular disease including steatosis. The liver measures 14.3 cm. There is no intrahepatic bile duct dilatation. The mid aspect of the CBD measures 10 mm. The distal common bile duct measures 6 mm. Reported cholecystectomy. The main portal vein is antegrade and demonstrates hepatopetal flow. The right kidney measures 8.3 cm in length. No ascites. IMPRESSION: 1. Coarsened hepatic echogenicity a finding which can indicate hepatocellular disease including steatosis. 2. Reported cholecystectomy. 3. Mildly dilated common bile duct measuring up to 10 mm. Findings are likely related to prior cholecystectomy. This document has been electronically signed by: Jaime Balderas DO on 05/04/2024 03:57:10 Dictating Physician: JAIME BALDERAS DO Electronically Signed by: JAIME BALDERAS DO Dic Date/Time: 05/04/24 0357 Sign date/Time: 05/04/24 002180 Rosa Chandler MD IM US PROCEDURE S from Last 3 Months Advance Directives Documents on File Type Date Recorded Patient Materials Director Expl anation Health Care Decision (hx) 01/21/2020 AD WHITEHEAD DIRECTIVE Health Care Decision (hx) 01/21/2020 AD WHITEHEAD DIRECTIVE Health Care Decision (hx) 01/21/2020 AD WHITEHEAD DIRECTIVE Health Care Decision (hx) 01/21/2020 AD WHITEHEAD DIRECTIVE Health Care Decision (hx) 01/21/2020 AD WHITEHEAD DIRECTIVE Health Care Decision (hx) 01/21/2020 AD WHITEHEAD DIRECTIVE Health Care Decision (hx) 01/21/2020 AD WHITEHEAD DIRECTIVE Health Care Decision (hx) 01/21/2020 AD WHITEHEAD DIRECTIVE Health Care Decision (hx) 01/21/2020 AD WHITEHEAD DIRECTIVE Health Care Decision (hx) 01/21/2020 AD WHITEHEAD DIRECTIVE Health Care Decision (hx) 01/21/2020 AD WHITEHEAD DIRECTIVE Health Care Decision (hx) 01/21/2020 AD WHITEHEAD DIRECTIVE Health Care Decision (hx) 01/21/2020 AD WHITEHEAD DIRECTIVE Health Care Decision (hx) 01/21/2020 AD WHITEHEAD DIRECTIVE Health Care Decision (hx) 01/21/2020 AD WHITEHEAD DIRECTIVE Health Care Decision (hx) 01/21/2020 AD WHITEHEAD DIRECTIVE Health Care Decision (hx) 01/21/2020 AD WHITEHEAD DIRECTIVE Health Care Decision (hx) 01/21/2020 AD WHITEHEAD DIRECTIVE Health Care Decision (hx) 01/21/2020 AD WHITEHEAD DIRECTIVE Health Care Decision (hx) 01/21/2020 AD WHITEHEAD DIRECTIVE Health Care Decision (hx) 01/21/2020 AD WHITEHEAD DIRECTIVE Health Care Decision (hx) 01/21/2020 AD WHITEHEAD DIRECTIVE Health Care Decision (hx) 01/21/2020 AD WHITEHEAD DIRECTIVE Health Care Decision (hx) 01/21/2020 AD WHITEHEAD DIRECTIVE Health Care Decision (hx) 01/21/2020 AD WHITEHEAD DIRECTIVE Health Care Decision (hx) 01/21/2020 AD WHITEHEAD DIRECTIVE Health Care Decision (hx) 01/21/2020 AD WHITEHEAD DIRECTIVE Health Care Decision (hx) 01/21/2020 AD WHITEHEAD DIRECTIVE Health Care Decision (hx) 01/21/2020 AD WHITEHEAD DIRECTIVE Care Teams Plumbing Instructor Relationship Specialty Start Date End Date Shaun Chaudhry DO [address] [place], [place] PCP - General Family Medicine 01/08/19
--- OUTSIDE RECORDS SUMMARY | 2024-07-30 19:06 | XMS_ITS | Data Portability ---
Author Organization [facility], [address] Address [address] [place] [address] Care Team Providers Care Director Ambulatory Name Role Phone JOSE CATES Primary Care Provider [phone] Assessment No assessment recorded. Plan of Treatment Reminders Order Date Submit Date Provider Last Modified By Organization Details Last Modified Time Details Appointments None recorded. Lab urinalysis, dipstick 2022 023 [email or web address] [facility], [address] [place] [address], [phone], 11:59:47 culture, urine 2022 023 [place] [address] [place] [address], [address], 3 18:06:05 Referral None recorded. Procedures None recorded. Surgeries None recorded. Imaging None recorded. Medication Orders cephalexin 500 mg capsule 2022 023 [id number], [address], [place], [address], 3 11:59:49 Pyridium 200 mg tablet 2022 023 [facility] #[id number], [address], [place], [address], 3 11:59:49 Patient TargetsNo targets recorded. Patient Instructions Encounter Date Encounter Id Patient Instructions Last Modified By Organization Details Last Modified Time 08/15/2022 [id number] We recommend you get a repeat urinalysis in 2 weeks to ensure that any abnormalities have resolved. If urine abnormalities persist, you will likely need further testing or treatment. We will contact you within 3 to 5 days with the results of your lab test. If you have not heard back from us within that time frame, please feel free to contact our office regarding your results. Go to the Emergency Department immediately if your symptoms worsen or if you develop new symptoms that concern you. Drink plenty of fluids You should follow-up with your PCP in 4-5 days, or at any time if your condition does not improve or worsens. Any acute change should prompt a visit to the nearest Emergency Department. [email or web address] Not available 08/15/2022 11:59:45 Reason for Referral None Reported. Results Created Date Observation Date Name Description Value Unit Range Abnormal Flag Note LastModifiedBy Organization Detail LastModifiedTime 08/15/1908/19/2022 URINE CULTU RE, ROUTI NE urine culture, routine FINAL REPORT abnormal Not Available [facility] ([facility]) [address] [facility], [place], [address], 08/19/2022 06:07:44 08/15/1908/19/2022 URINE CULTU RE, ROUTI NE result 1 ESCHER ICHIA COLI abnormal Cefaz lester <=4 ug/mL Cefaz lester with an SARATH <=16 predi cts susce ptibi lity to the oral agent s cefac sanford, cefdi ruddy, cefpo doxim e, cefpr ozil, cefur oxime , cepha lexin , and lorac arbef when used for thera py of uncom plica joi urina ry tract infec tions due to E. coli, Klebs iella pneum oniae , and Prote us mirab ilis. Great er than 100,0 00 colon y formi ng units per mL Not Available [facility] ([facility]) [address] [facility], [place], [address], 08/19/2022 06:07:44 08/15/1908/19/2022 URINE CULTU RE, ROUTI NE antimicrobia l susceptibili ty COMMEN T S = Susce ptibl e; I = Inter media te; R = Resis tant P = Posit philip; N = Negat philip MICS are expre ssed in micro grams per mL Antib iotic RSLT# 1 RSLT# 2 RSLT# 3 RSLT# 4 Amoxi cilli n/Cla vulan ic Acid S Ampic illin S Cefep wyatt S Ceftr iaxon e S Cefur oxime S Cipro floxa semaj S Ertap enem S Genta micin S Imipe nem S Levof loxac in S Merop enem S Nitro furan toin S Piper acill in/Ta zobac gil S Tetra cycli ne S Tobra mycin S Trime thopr im/Bernstein lfa S Not Available [facility] ([facility]) [address] [facility], [place], [address], 08/19/2022 06:07:44 08/15/19 23 08/15/2022 urina lysis , dipst ick Unknown Analyte Normal = light yellow Not Available [address], [address], 08/15/2022 11:23:42 08/15/19 23 08/15/2022 urina lysis , dipst ick Unknown Analyte Marianne Not Available [address] [place] [address], [place], [address], 08/15/2022 11:23:42 08/15/19 23 08/15/2022 urina lysis , dipst ick Unknown Analyte Normal = clear Not Available [address] [place] [address], [place], [address], 08/15/2022 11:23:42 08/15/19 23 08/15/2022 urina lysis , dipst ick Unknown Analyte Turbid Not Available [address] [place] [address], [address], 08/15/2022 11:23:42 08/15/19 23 08/15/2022 urina lysis , dipst ick Unknown Analyte Normal = negati ve Not Available krishna nogueira [address], [place], [address], 08/15/2022 11:23:42 08/15/19 23 08/15/2022 urina lysis , dipst ick Unknown Analyte Negati ve Not Available krishna nogueira [address], [place], [address], 08/15/2022 11:23:42 08/15/19 23 08/15/2022 urina lysis , dipst ick Unknown Analyte Normal = Negati ve Not Available krishna nogueira [address], [place], [address], 08/15/2022 11:23:42 08/15/19 23 08/15/2022 urina lysis , dipst ick Unknown Analyte Negati ve Not Available krishna nogueira [address], [place], [address], 08/15/2022 11:23:42 08/15/19 23 08/15/2022 urina lysis , dipst ick Unknown Analyte Normal = Negati ve Not Available krishna nogueira [address], [place], [address], 08/15/2022 11:23:42 08/15/19 23 08/15/2022 urina lysis , dipst ick Unknown Analyte Negati ve Not Available krishna pe [address], [place], [address], 08/15/2022 11:23:42 08/15/19 23 08/15/2022 urina lysis , dipst ick Unknown Analyte Normal = 1.010, 1.015, 1.020 Not Available krishna nogueira [address], [place], [address], 08/15/2022 11:23:42 08/15/19 23 08/15/2022 urina lysis , dipst ick Unknown Analyte 1.020 Not Available omar [address], [place], [address], 08/15/2022 11:23:42 08/15/19 23 08/15/2022 urina lysis , dipst ick Unknown Analyte Normal = Negati ve Not Available krishna nogueira [address], [place], [address], 08/15/2022 11:23:42 08/15/19 23 08/15/2022 urina lysis , dipst ick Unknown Analyte Trace- intact Not Available krishna nogueira [address], [place], [address], 08/15/2022 11:23:42 08/15/19 23 08/15/2022 urina lysis , dipst ick Unknown Analyte Normal = 6.5, 7.0, 7.5, 8.0 Not Available krishna nogueira [address], [place], [address], 08/15/2022 11:23:42 08/15/19 23 08/15/2022 urina lysis , dipst ick Unknown Analyte 7.0 [facility] Available [facility] [address], [place], [address], 08/15/2022 11:23:42 08/15/19 23 08/15/2022 urina lysis , dipst ick Unknown Analyte Normal = Negati ve Not Available krishna nogueira [address], [place], [address], 08/15/2022 11:23:42 08/15/19 23 08/15/2022 urina lysis , dipst ick Unknown Analyte 30 mg/dL Not Available krishna nogueira [address], [place], [address], 08/15/2022 11:23:42 08/15/19 23 08/15/2022 urina lysis , dipst ick Unknown Analyte Normal = 0.2, 1.0 Not Available [facility] [address], [place], [address], 08/15/2022 11:23:42 08/15/19 23 08/15/2022 urina lysis , dipst ick Unknown Analyte 1.0 E.U./d L Not Available [facility] [address], [place], [address], 08/15/2022 11:23:42 08/15/19 23 08/15/2022 urina lysis , dipst ick Unknown Analyte Normal = Negati ve Not Available [address], [place], [address], 08/15/2022 11:23:42 08/15/19 23 08/15/2022 urina lysis , dipst ick Unknown Analyte Positi ve Not Available [address] [place] [address], [place], [address], 08/15/2022 11:23:42 08/15/19 23 08/15/2022 urina lysis , dipst ick Unknown Analyte Normal = Negati ve Not Available [address] [place] [address], [place], [address], 08/15/2022 11:23:42 08/15/19 23 08/15/2022 urina lysis , dipst ick Unknown Analyte Small Not Available [address] [place] [address], [place], [address], 08/15/2022 11:23:42 Result Notes None recorded. Problems Name Problem SNOMED Code Status Onset Date Resolution Date Notes Provider Name and Address Organization Details Recorded Time Depressive disorder 05094613 Active 2022 Yuly Flex null, PA - [facility] 3 11:28:38 Postconcussion syndrome 15650733 Active 2022 Yuly Mcarthur null, PA - [facility] 3 11:28:50 Vertigo 780963294 Active 2022 Yuly Mcarthur null, PA - [facility] 3 11:28:57 Posttraumatic stress disorder 92507352 Active 2022 Yuly Flex null, PA - [facility] 3 11:29:08 Fibromyalgia 017522459 Active 2022 Yuly Mcarthur null, PA - [facility] 3 11:29:17 Migraine 56658841 Active 2022 Yuly Mcarthur null, PA - [facility] 3 11:29:22 Restless legs 65977706 Active 2022 Yuly Mcarthur null, PA - [facility] 3 11:29:26 Anxiety 13741878 Active 2022 Yuly Flex null, PA - [facility] 3 11:29:32 Chronic kidney disease 704223592 Active 2022 Yuly Flex null, PA - [facility] 3 11:29:39 Problem Notes None recorded. Procedures Surgical History Date Name Laterality Status Provider Name and Address Organization Details Recorded Time lithotripsy completed Yuly Mcarthur PA - [facility] 08/15/2022 11:30:05 open reduction of fracture of femur with internal fixation completed Yuly Mcarthur PA - [facility] 08/15/2022 11:30:15 hernia repair completed Yuly Flex PA - [facility] 08/15/2022 11:30:24 Gastric bypass for obesity completed Yuly Flex PA - [facility] 08/15/2022 11:30:31 back fusion completed Yuly Mcarthur PA - [facility] 08/15/2022 11:30:38 cholecystectomy completed Yuly Flex [place] A - [facility] 08/15/2022 11:30:43 hysterectomy completed Yuly Flex PA - [facility] 08/15/2022 11:31:19 Imaging Results None recorded. Procedure Notes None recorded. Medical Equipment None Reported. Allergies No known drug allergies Medications Name Sig Start Date Stop Date Status Note LastModified by Organization Details LastModified Time fluoxetine 40 mg capsule TAKE 2 CAPSULES BY MOUTH EVERY DAY active Not Available Not Available No t Available ropinirole 1 mg tablet TAKE 1 TABLET (1MG) BY MOUTH 3 TIMES A DAY NEEDED RESTLESS LEGS FOR 30 DAYS active Not Available Not Available No t Available sumatriptan 100 mg tablet PLEASE SEE ATTACHED FOR DETAILED DIRECTION S active Not Available Not Available No t Available phenazopyri dine 200 mg tablet TAKE 1 TABLET BY MOUTH THREE TIMES A DAY WITH MEALS FOR 2 DAYS active Not Available Not Available No t Available clonazepam 1 mg tablet TAKE 1 TABLET BY MOUTH TWICE A DAY active Not Available Not Available No t Available midodrine 5 mg tablet 08/15 completed Not Available Not Available Not Available cyanocobala min (vit B-12) 1,000 mcg tablet TAKE 1 TABLET BY MOUTH DAILY ON AN EMPTY STOMACH 08/15 completed Not Available Not Available Not Available sulfamethox azole 800 mg-trimetho prim 160 mg tablet TAKE 1 TABLET BY MOUTH EVERY 12 HOURS FOR 7 DAYS active Not Available Not Available No t Available lamotrigine 25 mg tablet TAKE 3 TABLETS BY MOUTH EVERY DAY 08/15 completed Not Available Not Available Not Available amitriptyli ne 10 mg tablet TAKE 2 TABLETS AT BEDTIME active Not Available Not Available No t Available ropinirole 2 mg tablet active Not Available Not Available Not Available cephalexin 500 mg capsule TAKE 1 CAPSULE EVERY 8 HOURS BY ORAL ROUTE WITH MEALS FOR 7 DAYS. active Not Available Not Available No t Available gabapentin 300 mg capsule TAKE 1 CAPSULE BY MOUTH TWICE A DAY active Not Available Not Available No t Available verapamil ER (PM) 100 mg capsule 24hr pellet CT,ext.rele ase TAKE 1 CAPSULE BY MOUTH AT BEDTIME active Not Available Not Available No t Available ropinirole ER 2 mg tablet,exte nded release 24 hr TAKE 1 TABLET (2MG) BY MOUTH AT BEDTIME FOR 30 DAYS active Not Available Not Available No t Available Vitals Date Recorded Body height Provider Name an d Address Organization Details Last Updated DateTime 08/15/2022 165.1 cm Yuly Mcarthur PA - [facility] 0 08/15/2022 11:26:06 Date Recorded Body mass index (BMI) Body weight Provider Name and Address Organization Details Last Updated DateTime 08/15/2022 31.1 kg/m2 73521.77 g Yuly Mcarthur PA - [facility] 08/15/2022 11:26:09 Date Recorded Oxygen saturation Oxygen saturation in Arterial blood by Pulse oximetry Provider Name and Address Organization Details Last Updated DateTime 08/15/2022 99 % 99 % Yuly Flex PA - [facility] 08/15/2022 11:32:13 Date Recorded Pain severity - 0-10 verbal numeric rating [Score] - Reported Provider Name and Address Organization Details Last Updated DateTime 08/15/2022 10 Yuly Mcarthur PA - [facility] 0 08/15/2022 11:32:16 Date Recorded Heart rate Provider Name an d Address Organization Details Last Updated DateTime 08/15/2022 69 /min Yuly Mcarthur PA - [facility] 0 08/15/2022 11:32:19 Date Recorded Respiratory rate Provider Name a nd Address Organization Details Last Updated DateTime 08/15/2022 20 /min Yuly Mcarthur PA - [facility] 0 08/15/2022 11:32:20 Date Recorded Body temperature Provider Name a nd Address Organization Details Last Updated DateTime 08/15/2022 97.9 [degF] Yuly Flex PA - [facility] 08/15/2022 11:32:24 Date Recorded Systolic blood pressure Diastolic blood pressure Provider Name and Address Organization Details Last Updated DateTime 08/15/2022 124 mm[Hg] 85 mm[Hg] Yuly Flex PA - [facility] 08/15/2022 11:32:09 Social History Question Answer Notes LastModified by Organizat ion Details LastModified Time Tobacco Smoking Status Never Smoker Yuly chávez, PA - [facility] 08/15/2022 11:29:53 What Is Your Level Of Alcohol Consumption? None Information not available 08/15/2022 Have You Had Direct Contact, Or Contact During Intimacy, With Monkeypox Rash, Scabs, Or Body Fluids From A Person With Monkeypox? No Information not available 08/15/2022 Do You Use Any Illicit Or Recreational Drugs? No Information not available 08/15/2022 Have You Recently Traveled Abroad? No Information not available 08/15/2022 Do You Or Have You Ever Used Any Other Forms Of Tobacco Or Nicotine? No Information not available 08/15/2022 Sex: Unknown Functional Status None recorded. Mental Status None recorded. Family History Relationship Description Onset Age of this Age Resolved Age Notes LastModified by Organization Details LastModified Time Father No current problems or disability Not available 08/15 11:29:46 Mother No current problems or disability Not available 08/15 11:29:46 Medical History No medical history recorded. Gynecological HistoryNo gynecological history recorded. Obstetrics History GPAL:G 0 P 0 0 0 0 Past Encounters Encounter ID Performer Location Encounter Start Date Encounter Closed Date Diagnosis/Indication Diagnosis SNOMED-CT Code Diagnosis ICD10 Code Diagnosis [place] [id number] [place] [address] [address] 08/15/2022 10:15:26 08/15/2022 12:00:33 Acute urinary tract infection 854453369 N39.0 Health Concerns Section Related Observation LastModified by Organization Detai ls LastModified Time None Recorded Concern Status LastModified by Organization Details LastModified Time None Recorded Advance Directives Directive None Recorded Payers Encounter Date Sequence Insurance Name Policy Number Policy Herrmann Covered Member ID Herrmann Member ID Guarantor Name 08/15/2022 1 [facility] [employer] [facility] - MEDICARE PREFERRED (MEDICARE REPLACEMENT HMO) [facility] Zaria Amaya [id number] Zaria Amaya 08/15/2022 2 [place] [facility] Zaria Amaya [id number] Zaria Amaya Notes Date Note Type Note Provider Name and Address Organization Details Recorded Time 3 text/html Urinary Complaint FemaleReported bypatient.source of patient informationInformation obtained from patient; Patient arrived at Urgent Care ambulatory UTI Symptoms:no blood in the urine; no pain during urination; no vaginal discharge; no pain in the flank; no fever/chills; no incontinence; no recurrent UTI; no known exposure to STD;urgency;urinary frequency;abdominal pain Severity:moderate Duration:7 days Modifying Factors:nothing gives reliefNotes:frequency and urgency x 7 day. denies any fever or fever with chills, denies any History of renal stone or bladder issues. frequency and urgency x 1 day. denies any fever or fever with chills, denies any History of renal stone or bladder issues. Edwin Casillas NP [address] [place], [address], PA - [facility] 08/15/2022 12:00:14 OBGyn Episode No OBEpisode recorded.
== END 2024-07-30 15:12 | disposition home or self-care (01) ==
PROVIDERS: PCP Family Medicine; Visit Provider Physician Assistant
DX: M54.50 Low back pain, unspecified (principal)
CPT/HCPCS: 99024

== ENCOUNTER → 2024-07-30 15:15 | Outpatient (BNV) | payer MEDICARE, SELFPAY | PROVIDERS: PCP Family Medicine; Visit Provider Radiology Diagnostic Radiology | DX: M51.370 Other intervertebral disc degeneration, lumbosacral region with discogenic back pain only (principal) | CPT/HCPCS: 72110 ==

== ENCOUNTER 2024-09-20 15:26 | Outpatient (AMB) | payer MEDICARE, MEDICAID, SELFPAY ==
[2024-09-20 15:24] VITALS: BP 100/70; PULSE 71; O2SAT 96; BMI 30.4
--- NOTE | 2024-09-20 15:24 | A.OFFVIS_ITS ---
Vital Signs 09/20/24 15:24 Height 5 ft 5 in Weight 183 lb BMI 30.4 BP 100/70 Blood Pressure Location Lt brachial Position Sitting Pulse 71 Pulse Oximetry (%) 96 Oxygen Delivery Method Room Air Intake Visit Reasons: 4 mnts f/u appt Intake Note: Patient presents follow up gait/migraine. Labs/MRI in chart. 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 Accompanied by: Self / Same As Patient Allergies No Known Allergies Allergy (Verified 09/20/24 15:27) Medication List - Last Reconciled 09/20/24 by MANINDER Trinh amitriptyline 30 mg PO BEDTIME aspirin 81 mg PO DAILY cholecalciferol (vitamin D3) 50 mcg PO DAILY clonazepam 1mg qam and 2 mg qhs orally .; 30 days cyanocobalamin (vitamin B-12) 1,000 mcg PO DAILY docusate sodium (Colace) 100 mg PO BID erenumab-aooe (Aimovig Autoinjector) 140 mg subcut QMONTH fluoxetine 80 mg (2 x 40 mg) PO DAILY 90 days lamotrigine 100 mg (4 x 25 mg) PO BEDTIME 90 days methenamine hippurate 1 g PO BID mirabegron ER (Myrbetriq) 50 mg PO DAILY multivitamin 1 tab PO DAILY pantoprazole 40 mg PO DAILY pregabalin 75 mg PO TID 30 days ropinirole 1 mg PO QAM ropinirole ER 2 mg PO BEDTIME 90 days sumatriptan succinate 100 mg PO BID PRN 30 days HPI Comments Details: 59-yr-old female presents for urgent follow-up following a psych eval d/t positive SI expressed to her PCP- as she felt that she was in too much pain- states her fibromyalgia had flared-up, was more achy, had joint pain. She states that is not 1 particular symptom or condition brought her to the point of expressing SI plan to her PCP, but rather accommodation of the fibromyalgia, burning pains from her thoracic oblique region into her legs, and her restless leg symptoms. While being evaluated in the acute psychiatric setting, the manager social services reached out to us, we did make a referral to pain management for which he is waiting on an appointment for, and increased her gabapentin from 300 mg twice a day to 300 mg t.i.d.. Patient states that in the past she took up to gabapentin 900 mg t.i.d., without help for her back pain. She states that her restless leg symptoms started well after being on that high of a dose of gabapentin. Today, patient is hoping to optimize her pain management and medication to help her sleep. She can continues to have depression and anxiety, but denies SI. She wonders about stopping fluoxetine. She does not have a psychiatrist. She previously did have a psychiatric eval for med recommendations through [facility]. Reports burning pain from her upper thoracic region moving down her her back into her legs. She also has sharp pains in her bilateral oblique muscles and travels back towards but does not reach her spine. She is falling more- sometimes it is a/w lightheadedness, other times, she just falls. States she has had 13 falls a/w LOC or near-LOC in the past year. She is feeling bugs crawling under her skin when she is laying down, or even when walking in the am. She is more restless overall. The restless leg s/s are exacerbating her anxiety The ropinirole helps, but is currently on a lower dose of ropinirole 1mg bid as pharmacy did not have previous to mg ER bedtime dose- over the last 2 months She states her Aimovig has been effective for well-controlled on Aimovig. Has a few atypical headaches- more of a pressure headache, in base of her skull- a/w nausea/vomiting. [facility] Medical History Kidney stones White matter disease Fibromyalgia Memory loss History of traumatic head injury Numbness TIA (transient ischemic attack) Seizures SOB (shortness of breath) Incontinent of urine Sleep apnea Urinary urgency Syncope Obese Migraine Back pain Hyperlipidemia Frequent falls Colitis Chronic kidney disease, stage 2, mildly decreased GFR Atherosclerosis of coronary artery Anxiety Alkaline phosphatase raised Abrasion of face Concussion Confusion Hiatal hernia Surgical History History of repair of hiatal hernia History of surgery on lower extremity History of carpal tunnel release of both wrists Hx of vaginal hysterectomy Hx of gastric bypass History of lumbar fusion H/O colonoscopy History of esophagogastroduodenoscopy (EGD) Hx laparoscopic cholecystectomy Hx of bariatric surgery Bariatric surgery status Family History Father Lung cancer Sister Breast cancer Skin cancer of arm Mother COPD (chronic obstructive pulmonary disease) Paternal Grandmother Cancer Paternal Grandfather Throat cancer Maternal Grandfather Prostate cancer Social History Are you a primary chiropractic care to a significant other at home: No Do you presently have visiting nurse or other home services: Yes ([facility]) Alcohol intake: never Patient Tobacco Use Status: Former Tobacco user Years Smoked: 3 Substance Use Type: Marijuana Physical Exam Vital Signs: Last Vital Signs Pulse 71 09/20/24 15:24 BP 100/70 09/20/24 15:24 Pulse Ox 96 09/20/24 15:24 Oxygen Delivery Method Room Air 09/20/24 15:24 BMI result Body Mass Index 30.4 Const General: cooperative and no acute distress Resp Effort & Inspection: normal respiratory effort and able to speak in complete sentences Neuro Other: Alert and orient x3 Anxious, mildly crying at times. Reasonable insight. Responding appropriately. Slow to stand, overall gait steadier with cane. Assessment & Plan Assessment & Plan (1) Low vitamin B12 level: Code(s): R79.89 - Other specified abnormal findings of blood chemistry Category: Medical (2) Anemia: Code(s): D64.9 - Anemia, unspecified Category: Medical (3) Paresthesia: Code(s): R20.2 - Paresthesia of skin Category: Medical (4) Frequent falls: Code(s): R29.6 - Repeated falls Category: Medical (5) Altered gait: Code(s): R26.9 - Unspecified abnormalities of gait and mobility Category: Medical (6) Low back pain: Code(s): M54.50 - Low back pain, unspecified Category: Medical (7) Migraine with aura: Code(s): G43.109 - Migraine with aura, not intractable, without status migrainosus Category: Medical (8) Restless leg syndrome: Code(s): G25.81 - Restless legs syndrome Category: Medical (9) Depression: Code(s): F32.A - Depression, unspecified Category: Medical (10) PTSD (post-traumatic stress disorder): Code(s): F43.10 - Post-traumatic stress disorder, unspecified Category: Medical (11) Multifactorial cognitive dysfunction: Code(s): F09 - Unspecified mental disorder due to known physiological condition Category: Medical Plan Discussed today, that she will likely need a multifaceted approach to help her feel better. Discussed that although we can augment her current medication, to help with pain and sleep, we must also review her current medication profile to determine if any of her current treatments are exacerbating other conditions/symptoms. In summary, Check labs for common etiologies of restless leg syndrome and paresthesia. Start pregabalin 75 mg 3 times per day to optimize restless leg symptom control, as well as to treat pain and anxiety. As pregabalin will likely need a prior authorization, may increase gabapentin to 300 mg 4 times a day until pregabalin prior authorization approved-at which time, stop gabapentin completely. Increase clonazepam from 1 mg twice a day to 1 mg daily in the morning, and 2 mg daily at bedtime. Follow-up on previous request for pain management consult. Upon review of above, advised that we should consider reducing amitriptyline and/or fluoxetine dose as these may exacerbate RLS symptoms- though would likely need to adjust mood stabilizer to compensate. Additionally, we should consider a very slow wean off of ropinirole, as this can cause compulsive behavior and orthostatic hypotension- patient is very hesitant to do this, ensured no changes would be made without her full participation. For h/o frequent falls, vertigo: EEG- normal. Tilt-table test- non-specific response- HR elevation w/ BP elevation response. DaTscan as scheduled. Brain MRI- partail empty sella, and small right and possibly also left petrous apex cephaloceles. No vision changes. Routine eye eam. Mild age-appropriate global cerebral volume loss. Nonspecific white matter disease, presumably chronic microangiopathy. Continue to optimize CV risk factors. . Patient has weaned off of verapamil. Continue to increase fluids. For migraines: Continue Aimovig 140mg sc q month. Continue Amitriptyline 30mg qhs- again consider decreasing in follow-up. Patient has weaned off the verapamil. Sumatriptan 100mg prn. Previous medication trials- Botox- ineffective. ? For RLS: Start pregabalin 75 mg 2 times per day as above Continue Ropinirole 1mg IR twice a day- consider weaning off of this due to risk for orthostatic hypotension and compulsive behaviors. ? For cognition: Engage in cognitively stimulating activities ? For depression, PTSD: Continue fluoxetine 80mg qd. Continue Lamotrigene 100mg qd for now. As above, increase Clonzazepam. Will follow-up upon review of above and patient to follow-up in clinic in 2 months or sooner prn. Orders: Orders Vitamin B12 and Folate Today D64.9 - Anemia, unspecified, F32.A - Depression, unspecified, G43.119 - Migraine with aura, intractable, without status migrainosus, R20.2 - Paresthesia of skin, R79.89 - Other specified abnormal findings of blood chemistry Vitamin B2 (Riboflavin) Today D64.9 - Anemia, unspecified, F32.A - Depression, unspecified, G43.119 - Migraine with aura, intractable, without status migrainosus, R20.2 - Paresthesia of skin, R79.89 - Other specified abnormal findings of blood chemistry Vitamin B3 (Niacin) Today D64.9 - Anemia, unspecified, F32.A - Depression, unspecified, G43.119 - Migraine with aura, intractable, without status migrainosus, R20.2 - Paresthesia of skin, R79.89 - Other specified abnormal findings of blood chemistry Vitamin B5 (Pantothenic Acid) Today D64.9 - Anemia, unspecified, F32.A - Depression, unspecified, G43.119 - Migraine with aura, intractable, without status migrainosus, R20.2 - Paresthesia of skin, R79.89 - Other specified abnormal findings of blood chemistry Complete Blood Count Auto Diff Today D64.9 - Anemia, unspecified, F32.A - Depression, unspecified, G43.119 - Migraine with aura, intractable, without status migrainosus, R20.2 - Paresthesia of skin, R79.89 - Other specified abnormal findings of blood chemistry Ferritin Today D64.9 - Anemia, unspecified, F32.A - Depression, unspecified, G43.119 - Migraine with aura, intractable, without status migrainosus, R20.2 - Paresthesia of skin, R79.89 - Other specified abnormal findings of blood chemistry IRON PROFILE Today D64.9 - Anemia, unspecified, F32.A - Depression, unspecified, G43.119 - Migraine with aura, intractable, without status migrainosus, R20.2 - Paresthesia of skin, R79.89 - Other specified abnormal findings of blood chemistry Vitamin B1 Today D64.9 - Anemia, unspecified, F32.A - Depression, unspecified, G43.119 - Migraine with aura, intractable, without status migrainosus, R20.2 - Paresthesia of skin, R79.89 - Other specified abnormal findings of blood chemistry Vitamin B6 Today D64.9 - Anemia, unspecified, F32.A - Depression, unspecified, G43.119 - Migraine with aura, intractable, without status migrainosus, R20.2 - Paresthesia of skin, R79.89 - Other specified abnormal findings of blood chemistry Vitamin C Today D64.9 - Anemia, unspecified, F32.A - Depression, unspecified, G43.119 - Migraine with aura, intractable, without status migrainosus, R20.2 - Paresthesia of skin, R79.89 - Other specified abnormal findings of blood chemistry Vitamin D 25-OH (D2 and D3) Today D64.9 - Anemia, unspecified, F32.A - Depression, unspecified, G43.119 - Migraine with aura, intractable, without status migrainosus, R20.2 - Paresthesia of skin, R79.89 - Other specified abno rmal findings of blood chemistry Comprehensive Met. Panel Today D64.9 - Anemia, unspecified, F32.A - Depression, unspecified, G43.119 - Migraine with aura, intractable, without status migrainosus, R20.2 - Paresthesia of skin, R79.89 - Other specified abnormal findings of blood chemistry Creatine Kinase Total Today D64.9 - Anemia, unspecified, F32.A - Depression, unspecified, G43.119 - Migraine with aura, intractable, without status migrainosus, R20.2 - Paresthesia of skin, R79.89 - Other specified abnormal findings of blood chemistry Hemoglobin A1c Today D64.9 - Anemia, unspecified, F32.A - Depression, unspecified, G43.119 - Migraine with aura, intractable, without status migrainosus, R20.2 - Paresthesia of skin, R79.89 - Other specified abnormal findings of blood chemistry Lamotrigine Lamictal Today D64.9 - Anemia, unspecified, F32.A - Depression, unspecified, G43.119 - Migraine with aura, intractable, without status migrainosus, R20.2 - Paresthesia of skin, R79.89 - Other specified abnormal findings of blood chemistry Medications: New pregabalin 75 mg PO TID 30 days 90 caps 1RF Changed From sumatriptan succinate 1 tab at onset of migraine, may repeat in 2 hours (max 2 tabs per day/4 per week) 100 mg PO BID PRN migraine headache To sumatriptan succinate 1 tab at onset of migraine, may repeat in 2 hours (max 2 tabs per day/4 per week) 100 mg PO BID 30 days PRN 12 tabs 6RF migraine headache From clonazepam 1 mg PO BID 30 days 60 tabs 3RF To clonazepam 1mg qam and 2 mg qhs orally .; 30 days 90 tabs 1RF Discontinued gabapentin Discontinued Reason: Doctor's Order 300 mg PO BID 90 days 180 caps 1RF hydromorphone (Dilaudid) Partial Fill upon patient request. Discontinued Reason: Patient no longer taking 2 mg PO Q8H PRN 20 tabs 0RF pain Coding Level of Care Code Est Pt Level 4 (86566) Diagnoses Low vitamin B12 level R79.89 Anemia D64.9 Paresthesia R20.2 Frequent falls R29.6 Altered gait R26.9 Low back pain M54.50 Migraine with aura G43.109 Restless leg syndrome G25.81 Depression F32.A PTSD (post-traumatic stress disorder) F43.10 Multifactorial cognitive dysfunction F09
== END 2024-09-20 16:19 | disposition home or self-care (01) ==
LOC: HO.HSMS 15:26
PROVIDERS: PCP Family Medicine; Visit Provider Nurse Practitioner Family
DX: R79.89 Other specified abnormal findings of blood chemistry (principal); D64.9 Anemia, unspecified; R20.2 Paresthesia of skin; R29.6 Repeated falls; R26.9 Unspecified abnormalities of gait and mobility; M54.50 Low back pain, unspecified; G43.109 Migraine with aura, not intractable, without status migrainosus; G25.81 Restless legs syndrome; F32.A Depression, unspecified; F43.10 Post-traumatic stress disorder, unspecified; R41.89 Other symptoms and signs involving cognitive functions and awareness
CPT/HCPCS: 99214

== ENCOUNTER → 2024-09-20 15:26 | Outpatient (BNVA) | payer MEDICARE, MEDICAID, SELFPAY | PROVIDERS: PCP Family Medicine; Visit Provider Nurse Practitioner Family | DX: G43.119 Migraine with aura, intractable, without status migrainosus (principal); G25.81 Restless legs syndrome; D64.9 Anemia, unspecified; R79.89 Other specified abnormal findings of blood chemistry; R20.2 Paresthesia of skin; R29.6 Repeated falls; R26.9 Unspecified abnormalities of gait and mobility; M54.50 Low back pain, unspecified; F32.A Depression, unspecified; F43.10 Post-traumatic stress disorder, unspecified; Z09 Encounter for follow-up examination after completed treatment for conditions other than malignant neoplasm | CPT/HCPCS: 99212 ==

== ENCOUNTER 2024-09-29 07:20 | Outpatient (REF) | payer MEDICARE, MEDICAID, SELFPAY ==
[2024-09-29 07:55] LABS: MANUAL DIFF FLAG NO
[2024-09-29 08:14] LABS: Basophils Percent Auto 0.8 % (0-2); Eosinophils Absolute Auto 0.1 X10*3/uL (0.0-0.4); Eosinophils Percent Auto 3.9 % (0-4); Hematocrit 39.1 % (37.0-47.0); Hemoglobin 12.7 g/dl (12.0-16.0); Imm Gran Abs Auto 0.01 X10*3/uL (0.00-0.03); Imm Gran Pct Auto 0.3 % (0.0-0.4); Lymphocytes Absolute Auto 1.1 X10*3/uL (1.2-4.9); Lymphocytes Percent Auto 31.4 % (20-40); Mean Corpuscular HGB Conc 32.5 g/dl (31.0-35.0); Mean Corpuscular Hemoglobin 30.2 pg (27.0-33.0); Mean Corpuscular Volume 93.1 fL (80.0-98.0); Mean Platelet Volume 11.6 fL (9.4-12.3); Monocytes Absolute Auto 0.2 X10*3/uL (0.1-1.2); Monocytes Percent Auto 6.7 % (2-11); Neutrophils Absolute Auto 2.1 x10*3/uL (2.0-8.3); Neutrophils Percent Auto 56.9 % (45-73); Platelet Count 195 X10*3/uL (160-400); Red Cell Distribution Width 13.7 % (11.0-16.0); White Blood Count 3.6 X10*3/uL (4.8-10.8)
[2024-09-29 08:23] LABS: Estimated Average Glucose 108 mg/dL; Hemoglobin A1C 117.8955 umol/L; Hemoglobin A1c % 5.4 % (<6.0); Total Hemoglobin (HGBA1C) 3354.6129 umol/L
[2024-09-29 08:53] LABS: Alanine Aminotransferase 20 U/L (0-31); Albumin Level 3.7 g/dL (3.5-5.0); Alkaline Phosphatase 91 U/L (39-117); Anion Gap 9 (12-20); Aspartate Amino Transferase 23 U/L (5-31); Bilirubin Total 0.3 mg/dL (0.0-1.0); Blood Urea Nitrogen 17 mg/dL (9-16); Calcium 8.7 mg/dL (8.4-10.2); Carbon Dioxide 27 mmol/L (22-29); Chloride 109 mmol/L (96-108); Estimated Glomerular Filt Rate > 60; Glucose Random 89 mg/dL (60-115); Iron 85 mcg/dL (30-160); Percent Iron Saturation 27 % (15-50); Sodium 141 mmol/L (135-145); Total Iron Binding Capacity 317 mcg/dL (228-428); Total Protein 6.6 g/dL (6.5-8.0); Unsaturated Iron Binding 232 ug/dL
[2024-09-29 09:11] LABS: Ferritin 13 ng/mL (10-250)
[2024-09-29 09:17] LABS: Folate 8.4 ng/mL (> or = 4.0); Vitamin B12 245 pg/mL (200-900)
[2024-10-04 11:49] LABS: Nicotinamide <20 ng/mL (see note); Vit B3 - Nicotinic Acid <20 ng/mL (see note)
[2024-10-04 11:59] LABS: Vitamin B6 5.4 ng/mL (2.1-21.7)
[2024-10-04 13:23] LABS: Vitamin D 25-OH, D2 <4 ng/mL; Vitamin D 25-OH, D3 30 ng/mL; Vitamin D 25-OH, Total 30 ng/mL (30-100)
[2024-10-04 16:54] LABS: Vitamin B2 (Riboflavin) 11.5 nmol/L (6.2-39.0)
[2024-10-07 12:53] LABS: Vitamin B1 10 nmol/L (8-30)
== END 2024-09-29 07:21 | disposition home or self-care (01) ==
LOC: HO.LAB 07:20
PROVIDERS: PCP Family Medicine; Visit Provider Nurse Practitioner Family
DX: R79.89 Other specified abnormal findings of blood chemistry (principal); G43.119 Migraine with aura, intractable, without status migrainosus; F32.A Depression, unspecified; D64.9 Anemia, unspecified; R20.2 Paresthesia of skin
CPT/HCPCS: 36415; 80053; 80175; 82306; 82550; 82607; 82728; 82746; 83036; 83540; 84207; 84252; 84425; 84591; 85025

== ENCOUNTER 2024-10-05 10:25 | Outpatient (AMB) | payer MEDICARE, MEDICAID, SELFPAY ==
[2024-10-05 10:42] VITALS: BP 113/72; PULSE 74; O2SAT 97; BMI 31.3
--- NOTE | 2024-10-05 10:42 | MHC.OFFVIS ---
Vital Signs 10/05/24 10:42 Height 5 ft 5 in Weight 188 lb BMI 31.3 BP 113/72 Blood Pressure Location Lt brachial Position Sitting Pulse 74 Pulse Source Pulse Oximeter Pulse Oximetry (%) 97 Oxygen Delivery Method Room Air Intake Visit Reasons: Lumbar Radiculopathy Allergies No Known Allergies Allergy (Verified 10/05/24 10:43) Medication List - Last Reconciled 10/05/24 by Giana Jade, WET CHAR CONVEYOR TENDER amitriptyline 30 mg (3 x 10 mg) PO BEDTIME 30 days aspirin 81 mg PO DAILY cholecalciferol (vitamin D3) 50 mcg PO DAILY clonazepam 1mg qam and 2 mg qhs orally .; 30 days cyanocobalamin (vitamin B-12) 1,000 mcg PO DAILY docusate sodium (Colace) 100 mg PO BID erenumab-aooe (Aimovig Autoinjector) 140 mg subcut QMONTH fluoxetine 80 mg (2 x 40 mg) PO DAILY 90 days lamotrigine 100 mg (4 x 25 mg) PO BEDTIME 90 days methenamine hippurate 1 g PO BID mirabegron ER (Myrbetriq) 50 mg PO DAILY multivitamin 1 tab PO DAILY pantoprazole 40 mg PO DAILY pregabalin 75 mg PO TID 30 days ropinirole 1 mg PO QAM ropinirole ER 2 mg PO BEDTIME 90 days sumatriptan succinate 100 mg PO BID PRN 30 days HPI Comments Details: The patient is a 59 year old female presenting with chronic back pain and left-sided lumbosacral radiculopathy. Her back pain has progressed over several months, worsened notably after a fall the previous night on her left side. This pain shares similarity to prior symptoms addressed by surgery in the fall where a cyst was excised. 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 Ten years subsequent, a significant fall compoundingly led to continued progression of her condition. Post-surgery, endorses continued general pain from fibromyalgia. She struggles with multiple conditions, including frequent falls resulting in numerous concussions within a year. There remains lingering general pain, despite attempts at various medication regimens, the latest being Lyrica commenced a week ago. Her situation manifests profound affectation of functional and daily living due to unmanaged pain and related symptoms. Patient has completed PT without improvement. She is under the care of neurology for frequent falls that exacerbate her pain. Was taking Gabapentin but one week ago this was discontinued and she was started on Lyrica instead. She has not noticed any improvement so far. - Onset and Timing: Chronic, with exacerbation following recent fall - Quality and Character: Persistent, severe, sciatica-like radiating down the left leg - Primary Location: Lower back - Radiation: Down the left leg - Exacerbating Factors: Post-fall, movement - Relieving Factors: None noted - Interference with Activities: Affects mobility and causes nausea - Affect: Reports significant distress due to persistent pain. - Analgesia: Currently on Lyrica 75 mg three times daily; transitioned from gabapentin one week ago, no significant pain relief noted yet. - Adverse Effects: None noted - Activities of Daily Living: Pain impacts mobility significantly, causing frequent falls, difficulty performing daily tasks. - Aberrant Drug Related Behaviors: None reported. Denies red flag symptoms including new loss of bowel, bladder or saddle anesthesia. Denies current use of anticoagulants Denies implantable devices, pacemaker defibrillator Denies current use of nicotine, tobacco, alcohol or illicit substances. Does endorse CBD/THC use for pain. [facility] Medical History Kidney stones White matter disease Fibromyalgia Memory loss History of traumatic head injury Numbness TIA (transient ischemic attack) Seizures SOB (shortness of breath) Incontinent of urine Sleep apnea Urinary urgency Syncope Obese Migraine Back pain Hyperlipidemia Frequent falls Colitis Chronic kidney disease, stage 2, mildly decreased GFR Atherosclerosis of coronary artery Anxiety Alkaline phosphatase raised Abrasion of face Concussion Confusion Hiatal hernia Surgical History History of repair of hiatal hernia History of surgery on lower extremity History of carpal tunnel release of both wrists Hx of vaginal hysterectomy Hx of gastric bypass History of lumbar fusion H/O colonoscopy History of esophagogastroduodenoscopy (EGD) Hx laparoscopic cholecystectomy Hx of bariatric surgery Bariatric surgery status Family History Father Lung cancer Sister Breast cancer Skin cancer of arm Mother COPD (chronic obstructive pulmonary disease) Paternal Grandmother Cancer Paternal Grandfather Throat cancer Maternal Grandfather Prostate cancer Social History (Reviewed 09/20/24 @ 15:24 by SHANTAL Baird Are you a primary respiratory care technician to a significant other at home: No Do you presently have visiting nurse or other home services: Yes ([facility] --[facility]) Alcohol intake: never Patient Tobacco Use Status: Former Tobacco user Years Smoked: 3 Substance Use Type: Marijuana Review of Systems Const Details: - Neurological: Reports frequent falls, multiple concussions over the past year - Gastrointestinal: Reports nausea and vomiting from pain - Musculoskeletal: Reports severe lower back and left-sided leg pain Physical Exam Vital Signs: Last Vital Signs Pulse 74 10/05/24 10:42 BP 113/72 10/05/24 10:42 Pulse Ox 97 10/05/24 10:42 Oxygen Delivery Method Room Air 10/05/24 10:42 BMI result Body Mass Index 31.3 General: awake, alert, oriented. Answers questions appropriately. Fully engaged in examination. Skin: warm, dry, intact HEENT: Normocephalic. Hearing intact. Cardiac: External chest normal in appearance. Respiratory: No cough, audible wheezing or stridor. Abdomen: without gross distension. MS: No obvious swelling or deformities. Able to transition from sit to stand unassisted. SLR positive on the left Tenderness over midline lumbar vertebrae and lumbar paraspinal muscles Decreased lumbar range of motion secondary to pain Bilateral lower extremity strength 5/5 Neurological: Oriented to person, place, time and situation. Thought process intact. Antalgic gait. He utilizes Rollator walker Psychiatric: Appropriate mood and affect. Good judgment and insight. Results Reviewed Results Reviewed: 03/29/24 MR/MR lumbar spine wo con FINDINGS: Exam submitted for interpretation on April 30, 2024. Last rib-bearing vertebra labeled T12. Paramagnetic field distortion secondary to metallic hardware from the posterior fusion L3 L5 and intervertebral disc spacers, L3-4 and L4-5 levels. Multilevel marginal osteophyte formation and disc desiccation more conspicuous at L2-3. Bone marrow STIR signal in the endplates of L2-3. Modic type I endplate changes L2-3. Grade 1 retrolisthesis, L2-3. Conus medullaris ends at superior endplate of L1 with normal signal. No elements of the thecal sac demonstrated no grouping or clumping or thecal sac empty sign. T12-L1: No compression upon neural elements. L1-2: Right subarticular broad-based disc herniation. No compression upon neural elements. Facet joint hypertrophy. L2-3: Grade 1 retrolisthesis. Broad-based disc bulging. Facet joint and ligamentum flavum hypertrophy. Reduced AP diameter of the thecal sac and the neural foramina likely encroaching the neural elements. L3-4: Post surgical changes. L4-5: Post surgical changes. Probable grade 1 anterolisthesis. Broad-based disc bulging. Facet joint hypertrophy. Bilateral neuroforamina narrowing encroaching the exiting nerve roots. Tarlov cyst, right S1. No prevertebral compartment hematoma, mass or fluid collection. Fatty atrophy of the lower lumbar muscles. IMPRESSION: Cervical spondylosis L2-3 resulting in grade 1 retrolisthesis and central spinal canal and neural foramina stenosis encroaching the neural limits. Instability cannot be excluded. No acute or chronic arachnoiditis. Assessment & Plan Assessment & Plan (1) Lumbar back pain with radiculopathy affecting left lower extremity: Code(s): M54.16 - Radiculopathy, lumbar region Category: Medical (2) Low back pain: Code(s): M54.50 - Low back pain, unspecified Category: Medical (3) Post laminectomy syndrome: Code(s): M96.1 - Postlaminectomy syndrome, not elsewhere classified Category: Medical (4) Chronic pain syndrome: Code(s): G89.4 - Chronic pain syndrome Category: Medical Plan The plan for managing the patient's chronic back pain and left-sided lumbosacral radiculopathy includes a trial with a spinal cord stimulator. This plan involves evaluating the extent of pain relief over a one-week trial period, following which a potential implantation could be pursued should the trial demonstrate effective relief. Insurance and mental health clearances were discussed. A holistic management plan that includes improvements in mobility and possible reduction in fibromyalgia symptoms was deliberated upon. Coordination with her past neurosurgeon was suggested to align on treatment strategies. Risks, benefits, and detailed procedural information were shared comprehensively. During the consultation, we examined likely diagnoses and therapeutic options for the patient's chronic back pain and left-sided lumbosacral radiculopathy. A spinal cord stimulator trial was recommended, detailing procedure expectations, recovery, and outcomes, with further discussion surrounding insurance requirements and informed consent. With anticipated relief improving both physical and compensatory mental wellbeing, considerations for reducing pharmacological dependence were covered. The dialogue also featured future coordination with her neurosurgery clinic, encouraging supportive collaboration in addressing her overarching medical concerns. Patient was informed and verbally consented to the use of an ambient scribe for clinic note documentation during this visit. Patient Instructions: - Proceed with contacting the recommended mental health clearance service for insurance purposes. - Reach out to insurance to verify clearance process and coverage. - Schedule and prepare for the one-week spinal cord stimulator trial. - Monitor and document levels of pain relief during trial period. - Follow up with our office post-evaluation to discuss results and potential next steps. - Maintain adherence to current prescribed medication. - Alert certified medical technician assistant if experiencing worsening symptoms or new health concerns. Coding Level of Care Code New Pt Level 4 (74836) Complex EM visit Add On G2211 Diagnoses Lumbar back pain with radiculopathy affecting left lower extremity M54.16 Low back pain M54.50 Post laminectomy syndrome M96.1 Chronic pain syndrome G89.4
--- OUTSIDE RECORDS SUMMARY | 2024-10-05 11:52 | XMS_ITS | Clinical Summary ---
Author Organization [facility] it Address [address] [place] [address] Care Team Providers Care Trimmer Buffing Wheel Name Role Phone Shaun Chaudhry DO Primary Care Provider Surgical History Surgery Date Site/Laterality Comments HYSTERECTOMY PROCEDURE: HISTORICAL HYSTERECTOMY COLONOSCOPY 02/25/2014 PROCEDURE: HISTORICAL COLONOSCOPY GASTRIC BYPASS PROCEDURE: NV GASTRIC RSTCV W/BYP W/SM INT RCNSTJ LIMIT ABSRPJ FEMUR FRACTURE SURGERY PROCEDURE: NV OPEN TX FEMORAL FRACTURE DISTAL MED/LAT CONDYLE HERNIA REPAIR PROCEDURE: HISTORICAL HERNIA REPAIR/UMB CHOLECYSTECTOMY PROCEDURE: NV CHOLECYSTECTOMY OTHER SURGICAL HISTORY PROCEDURE: NV SPINE DEVICE IMPLANT SURGERY OTHER SURGICAL HISTORY 06/30/2017 PROCEDURE: NV UNLISTED VASCULAR ENDOSCOPY PROCEDURE LEG SURGERY PROCEDURE: [...] kidney disease) stage 3, GFR 30-59 ml/min ([facility]) 01/22/2020 DX:CKD (chronic kidney dise ase) stage 3, GFR 30-59 ml/min ([facility]) Esophageal dysmotility 01/22/2020 DX:Esopha geal dysmotility GERD [...] drink = 0.6 oz pur e alcohol) Comments Unknown Sex and Gender Information Value Date Recorded Sex Assigned at Not on file Legal Sex Female 6:27 AM EST Gender Identity Not on file Sexual Orientation Not on file Obstetrics History Plan of Treatment Health Maintenance Due Date Last Done Comments Breast Cancer Screening 1963 COVID-19 Vaccine (#1) 1968 DTaP,Tdap,and Td Vaccines (1 - Tdap) 1982 Hepatitis A Vaccines (1 of 2 - Risk 2-dose series) 1982 Cervical Cancer Screening: P ap Smear 1984 Pneumococcal Vaccine: 50+ Ye ars (1 of 1 - PCV) 2013 Zoster Vaccines (1 of 2) 2013 Cholesterol Screening (Lipid Panel) 06/06/2022 Colorectal Cancer Screening: Colonoscopy 06/06/2022 Depression Screening 06/06/2022 HIV Screening 06/06/2022 Hepatitis C Screening 06/06/2022 Social Influencers of Health Screening 06/06/2022 Hypertension/CHF/CAD Annual BMP Blood Test 06/17/2022 Hepatitis B Vaccines (1 of 3 - Risk 3-dose series) 2023 RSV Immunization Adult Patie nts (1 - Risk 60-74 years 1-dose series) [...] patient's age to complete this topic Meningococcal B Vacine Aged Out No lo nger eligible based on patient's age to complete [...] on patient's age to complete this topic Advance Directives Documents on File Type Date Recorded Patient Billet Driller Expl anation Health Care Decision (hx) 01/21/2020 [...] (hx) 01/21/2020 AD WHITEHEAD DIRECTIVE Care Teams Trimmer Buffing Wheel Relationship Specialty Start Date End Date Shaun Chaudhry DO [address], [place] PCP - General Family Medicine 01/08/19
--- OUTSIDE RECORDS SUMMARY | 2024-10-05 11:52 | XMS_ITS | Data Portability ---
Author Organization [facility], [facility] Address [address] [place] [address] Care Team Providers Care Green Material Value Added Assessor Name Role Phone JOSE CATES Primary Care Provider [phone] Assessment No assessment recorded. Plan of Treatment Reminders Order Date Submit Date Provider Last Modified By Organization Details Last Modified Time Details Appointments None recorded. Lab urinalysis, dipstick [email or web address] [facility], [address] [place] [address], [id number], 11:59:47 culture, urine 2022 023 [place] [facility], [address] [place] [address], [address], 3 18:06:05 Referral None recorded. Procedures None recorded. Surgeries None recorded. Imaging None recorded. Medication Orders cephalexin 500 mg capsule 2022 023 [facility] #[id number], [address], [place], [address], 3 11:59:49 Pyridium 200 mg tablet 2022 023 [facility] #[id number], [address], [place], [address], 3 11:59:49 Patient TargetsNo targets recorded. Patient Instructions Encounter Date Encounter Id Patient Instructions Last Modified By Organization Details Last Modified Time 08/15/2022 [id number] We recommend you get a repeat urinalysis [...] routine FINAL REPORT abnormal Not Available [facility] ([facility]) [address], [place], [address], 08/19/2022 06:07:44 08/15/1908/19/2022 URINE CULTU RE, ROUTI [...] ng units per mL Not Available [facility] ([facility]) [address], [place], [address], 08/19/2022 06:07:44 08/15/1908/19/2022 URINE CULTU RE, ROUTI [...] thopr im/Bernstein lfa S Not Available [facility] ([facility]) [address], [place], [address], 08/19/2022 06:07:44 08/15/19 23 08/15/2022 urina lysis , dipst ick Unknown Analyte Normal = light yellow Not Available [address], [address], 08/15/2022 11:23:42 08/15/19 23 08/15/2022 urina lysis , dipst ick Unknown Analyte Marianne Not Available [address] [place] [address], [place], [address], 08/15/2022 11:23:42 08/15/19 23 08/15/2022 urina lysis , dipst ick Unknown Analyte Normal = clear Not Available [address] [place] [address], [place], [address], 08/15/2022 11:23:42 08/15/19 23 08/15/2022 urina lysis , dipst ick Unknown Analyte Turbid Not Available [address] [place] [address], [address], 08/15/2022 11:23:42 08/15/19 23 08/15/2022 urina lysis , dipst ick Unknown Analyte Normal = negati ve Not Available krishna nogueira [address], [place], [address], 08/15/2022 11:23:42 08/15/19 23 08/15/2022 urina lysis , dipst ick Unknown Analyte Negati ve Not Available krishna nogueira [address], [place], [address], 08/15/2022 11:23:42 08/15/19 23 08/15/2022 urina lysis , dipst ick Unknown Analyte Normal = Negati ve Not Available krishna nogueira [address], [place], [address], 08/15/2022 11:23:42 08/15/19 23 08/15/2022 urina lysis , dipst ick Unknown Analyte Negati ve Not Available krishna nogueira [address], [place], [address], 08/15/2022 11:23:42 08/15/19 23 08/15/2022 urina lysis , dipst ick Unknown Analyte Normal = Negati ve Not Available krishna nogueira [address], [place], [address], 08/15/2022 11:23:42 08/15/19 23 08/15/2022 urina lysis , dipst ick Unknown Analyte Negati ve Not Available krishna pe [address], [place], [address], 08/15/2022 11:23:42 08/15/19 23 08/15/2022 urina lysis , dipst ick Unknown Analyte Normal = 1.010, 1.015, 1.020 Not Available krishna nogueira [address], [place], [address], 08/15/2022 11:23:42 08/15/19 23 08/15/2022 urina lysis , dipst ick Unknown Analyte 1.020 Not Available omar [address], [place], [address], 08/15/2022 11:23:42 08/15/19 23 08/15/2022 urina lysis , dipst ick Unknown Analyte Normal = Negati ve Not Available krishna nogueira [address], [place], [address], 08/15/2022 11:23:42 08/15/19 23 08/15/2022 urina lysis , dipst ick Unknown Analyte Trace- intact Not Available krishna nogueira [address], [place], [address], 08/15/2022 11:23:42 08/15/19 23 08/15/2022 urina lysis , dipst ick Unknown Analyte Normal = 6.5, 7.0, 7.5, 8.0 Not Available krishna nogueira [address], [place], [address], 08/15/2022 11:23:42 08/15/19 23 08/15/2022 urina lysis , dipst ick Unknown Analyte 7.0 Not Available [facility] [address], [place], [address], 08/15/2022 11:23:42 08/15/19 23 08/15/2022 urina lysis , dipst ick Unknown Analyte Normal = Negati ve Not Available krishna nogueira [address], [place], [address], 08/15/2022 11:23:42 08/15/19 23 08/15/2022 urina lysis , dipst ick Unknown Analyte 30 mg/dL Not Available krishna nogueira [address], [place], [address], 08/15/2022 11:23:42 08/15/19 23 08/15/2022 urina lysis , dipst ick Unknown Analyte Normal = 0.2, 1.0 Not Available [facility] [address], [place], [address], 08/15/2022 11:23:42 08/15/19 23 08/15/2022 urina lysis , dipst ick Unknown Analyte 1.0 E.U./d L Not Available [facility] [address], [place], [address], 08/15/2022 11:23:42 08/15/19 23 08/15/2022 urina lysis , dipst ick Unknown Analyte Normal = Negati ve Not Available [address], [place], [address], 08/15/2022 11:23:42 08/15/19 23 08/15/2022 urina lysis , dipst ick Unknown Analyte Positi ve Not Available [address] [place] [address], [place], [address], 08/15/2022 11:23:42 08/15/19 23 08/15/2022 urina lysis , dipst ick Unknown Analyte Normal = Negati ve Not Available [address] [place] [address], [place], [address], 08/15/2022 11:23:42 08/15/19 23 08/15/2022 urina lysis , dipst ick Unknown Analyte Small Not Available [address] [place] [address], [place], [address], 08/15/2022 11:23:42 Result Notes None recorded. Problems Name Problem SNOMED Code Status Onset Date Resolution Date Notes Provider Name and Address Organization Details Recorded Time Depressive disorder 44177284 Active 2022 Uyly Pickerel null, [place] - [facility] 3 11:28:38 Postconcussion syndrome 20798520 Active 2022 Yuly Pickerel null, PA - [facility] 3 11:28:50 Vertigo 238626926 Active 2022 Yuly Flex null, PA - [facility] 3 11:28:57 Posttraumatic stress disorder 61456597 Active 2022 Yuly Flex null, PA - [facility] 3 11:29:08 Fibromyalgia 616018760 Active 2022 Yuly Pickerel null, PA - [facility] 3 11:29:17 Migraine 21694464 Active 2022 Yuly Flex null, PA - [facility] 3 11:29:22 Restless legs 10845600 Active 2022 Yuly Flex null, PA - [facility] 3 11:29:26 Anxiety 67011574 Active 2022 Yuly Pickerel null, PA - [facility] 3 11:29:32 Chronic kidney disease 138651204 Active 2022 Yuly Pickerel null, PA - [facility] 3 11:29:39 Problem Notes None recorded. Procedures Surgical History Date Name Laterality Status Provider Name and Address Organization Details Recorded Time lithotripsy completed Yuly Flex PA - [facility] 08/15/2022 11:30:05 open reduction of fracture of femur with internal fixation completed Yuly Flex PA - [facility] 08/15/2022 11:30:15 hernia repair completed Yuly Pickerel PA - [facility] 08/15/2022 11:30:24 Gastric bypass for obesity completed Yuly Flex PA - [facility] 08/15/2022 11:30:31 back fusion completed Yuly Flex PA - [facility] 08/15/2022 11:30:38 cholecystectomy [...] t Available Vitals Date Recorded Body height Body mass index (BMI) Body weight Oxygen saturation Oxygen saturation in Arterial blood by Pulse oximetry Pain severity - 0-10 verbal numeric rating [Score] - Reported Heart rate Respiratory rate Body temperature Systolic blood pressure Diastolic blood pressure Provider Name and Address Organization Details Last Updated DateTime 3 165.1 cm 31.1 kg/m2 22640.7 7 g 99 % 99 % 10 69 /min 20 /min 97.9 [degF] 124 mm[Hg] 85 mm[Hg] Yuly Mccord PA [employer] [facility] 3 11:32:09 Social History Question Answer Notes LastModified by Organizat ion Details LastModified Time Tobacco Smoking Status Never Smoker Yuly chávez PA - [facility] 08/15/2022 11:29:53 What Is Your Level [...] SNOMED-CT Code Diagnosis ICD10 Code Diagnosis Note [id number] [place] [address] [address] 08/15/2022 10:15:26 08/15/2022 12:00:33 Acute urinary tract infection 227190183 N39.0 Health Concerns Section Related Observation LastModified by Organization Detai ls LastModified Time None Recorded Concern Status LastModified by Organization Details LastModified Time None Recorded Advance Directives Directive None Recorded Payers Encounter Date Sequence Insurance Name Policy Number Policy Herrmann Covered Member ID Herrmann Member ID Guarantor Name 08/15/2022 1 [facility] - MEDICARE PREFERRED (MEDICARE REPLACEMENT HMO) [employer] Zaria Rigginsfaith [id number] Zaria Monique 08/15/2022 2 [place] [facility] Zaria Monique [id number] Zaria Monique Notes Date Note Type Note Provider Name [...] Casillas NP [address] [place], [address], [place] - [facility] 08/15/2022 12:00:14 OBGyn Episode No OBEpisode recorded.
== END 2024-10-05 11:21 | disposition home or self-care (01) ==
LOC: HO.PMC 10:25
PROVIDERS: PCP Family Medicine; Referring Provider Nurse Practitioner Family; Visit Provider Registered Nurse Emergency
DX: M54.16 Radiculopathy, lumbar region (principal); M54.50 Low back pain, unspecified; M96.1 Postlaminectomy syndrome, not elsewhere classified; G89.4 Chronic pain syndrome
CPT/HCPCS: 99204; G2211

== ENCOUNTER → 2024-10-05 10:25 | Outpatient (BNVA) | payer MEDICARE, MEDICAID, SELFPAY | PROVIDERS: PCP Family Medicine; Referring Provider Nurse Practitioner Family; Visit Provider Registered Nurse Emergency | DX: M54.16 Radiculopathy, lumbar region (principal); M54.50 Low back pain, unspecified; M96.1 Postlaminectomy syndrome, not elsewhere classified; G89.4 Chronic pain syndrome | CPT/HCPCS: 99202 ==

== ENCOUNTER 2024-11-30 08:56 | Outpatient (AMB) | payer MEDICARE, MEDICAID, SELFPAY ==
--- OUTSIDE RECORDS SUMMARY | 2024-11-30 09:01 | XMS_ITS | Data Portability ---
Author Organization [facility], [facility] Address [address] [place] [address] Care Team Providers Care Reed Worker Name Role Phone JOSE CATES Primary Care Provider Assessment No assessment recorded. Plan of Treatment Reminders Order Date Submit Date Provider Last Modified By Organization Details Last Modified Time Details Appointments None recorded. Lab urinalysis, dipstick 2022 023 [email or web address] [facility], [address] [place] [address], [id number], 11:59:47 culture, urine 2022 023 [facility], [address] [place] [address], [address], 3 18:06:05 Referral None recorded. Procedures None recorded. Surgeries None recorded. Imaging None recorded. Medication Orders cephalexin 500 mg capsule 2022 023 [facility] #[id number], [address], [place], [address], 3 11:59:49 Pyridium 200 mg tablet 2022 023 [facility] #[id number], [address], [place], [address], 3 11:59:49 Patient TargetsNo targets recorded. Patient Instructions Encounter Date Encounter Id Patient Instructions Last Modified By Organization Details Last Modified Time 08/15/2022 [id number] We recommend you get a repeat urinalysis [...] routine FINAL REPORT abnormal Not Available [facility] ([facility]) [address] [facility], [place], [address], 08/19/2022 06:07:44 08/15/1908/19/2022 URINE CULTU RE, ROUTI [...] ng units per mL Not Available [facility] ([facility]) [address] [facility], [place], [address], 08/19/2022 06:07:44 08/15/1908/19/2022 URINE CULTU RE, ROUTI [...] thopr im/Bernstein lfa S Not Available [facility] ([facility]) [address] [facility], [place], [address], 08/19/2022 06:07:44 08/15/19 23 08/15/2022 urina lysis , dipst ick Unknown Analyte Normal = light yellow Not Available [address], [address], 08/15/2022 11:23:42 08/15/19 23 08/15/2022 urina lysis , dipst ick Unknown Analyte Marianne Not Available [address] [place] [address], [place], [address], 08/15/2022 11:23:42 08/15/19 23 08/15/2022 urina lysis , dipst ick Unknown Analyte Normal = clear Not Available [address] [place] [address], [place], [address], 08/15/2022 11:23:42 08/15/19 23 08/15/2022 urina lysis , dipst ick Unknown Analyte Turbid Not Available [address] [place] [address], [address], 08/15/2022 11:23:42 08/15/19 23 08/15/2022 urina lysis , dipst ick Unknown Analyte Normal = negati ve Not Available krishna nogueira [address], [place], [address], 08/15/2022 11:23:42 08/15/19 23 08/15/2022 urina lysis , dipst ick Unknown Analyte Negati ve Not Available krishna nogueira [address], [place], [address], 08/15/2022 11:23:42 08/15/19 23 08/15/2022 urina lysis , dipst ick Unknown Analyte Normal = Negati ve Not Available krishna nogueira [address], [place], [address], 08/15/2022 11:23:42 08/15/19 23 08/15/2022 urina lysis , dipst ick Unknown Analyte Negati ve Not Available krishna nogueira [address], [place], [address], 08/15/2022 11:23:42 08/15/19 23 08/15/2022 urina lysis , dipst ick Unknown Analyte Normal = Negati ve Not Available krishna nogueira [address], [place], [address], 08/15/2022 11:23:42 08/15/19 23 08/15/2022 urina lysis , dipst ick Unknown Analyte Negati ve Not Available krishna pe [address], [place], [address], 08/15/2022 11:23:42 08/15/19 23 08/15/2022 urina lysis , dipst ick Unknown Analyte Normal = 1.010, 1.015, 1.020 Not Available krishna nogueira [address], [place], [address], 08/15/2022 11:23:42 08/15/19 23 08/15/2022 urina lysis , dipst ick Unknown Analyte 1.020 Not Available omar [address], [place], [address], 08/15/2022 11:23:42 08/15/19 23 08/15/2022 urina lysis , dipst ick Unknown Analyte Normal = Negati ve Not Available krishna nogueira [address], [place], [address], 08/15/2022 11:23:42 08/15/19 23 08/15/2022 urina lysis , dipst ick Unknown Analyte Trace- intact Not Available krishna nogueira [address], [place], [address], 08/15/2022 11:23:42 08/15/19 23 08/15/2022 urina lysis , dipst ick Unknown Analyte Normal = 6.5, 7.0, 7.5, 8.0 Not Available krishna nogueira [address], [place], [address], 08/15/2022 11:23:42 08/15/19 23 08/15/2022 urina lysis , dipst ick Unknown Analyte 7.0 Not Available [facility] [address], [place], [address], 08/15/2022 11:23:42 08/15/19 23 08/15/2022 urina lysis , dipst ick Unknown Analyte Normal = Negati ve Not Available krishna nogueira [address], [place], [address], 08/15/2022 11:23:42 08/15/19 23 08/15/2022 urina lysis , dipst ick Unknown Analyte 30 mg/dL Not Available krishna nogueira [address], [place], [address], 08/15/2022 11:23:42 08/15/19 23 08/15/2022 urina lysis , dipst ick Unknown Analyte Normal = 0.2, 1.0 Not Available [facility] [address], [place], [address], 08/15/2022 11:23:42 08/15/19 23 08/15/2022 urina lysis , dipst ick Unknown Analyte 1.0 E.U./d L Not Available [facility] [address], [place], [address], 08/15/2022 11:23:42 08/15/19 23 08/15/2022 urina lysis , dipst ick Unknown Analyte Normal = Negati ve Not Available [address], [place], [address], 08/15/2022 11:23:42 08/15/19 23 08/15/2022 urina lysis , dipst ick Unknown Analyte Positi ve Not Available [address] [place] [address], [place], [address], 08/15/2022 11:23:42 08/15/19 23 08/15/2022 urina lysis , dipst ick Unknown Analyte Normal = Negati ve Not Available [address] [place] [address], [place], [address], 08/15/2022 11:23:42 08/15/19 23 08/15/2022 urina lysis , dipst ick Unknown Analyte Small Not Available [address] [place] [address], [place], [address], 08/15/2022 11:23:42 Result Notes None recorded. Problems Name Problem SNOMED Code Status Onset Date Resolution Date Notes Provider Name and Address Organization Details Recorded Time Depressive disorder 39884907 Active 2022 Yuly Flex null, [place] - [facility] 3 11:28:38 Postconcussion syndrome 74540466 Active 2022 Yuly Flex null, PA - [facility] 3 11:28:50 Vertigo 999530333 Active 2022 Yuly Flex null, PA - [facility] 3 11:28:57 Posttraumatic stress disorder 21629660 Active 2022 Yuly [place] null, PA - [facility] 3 11:29:08 Fibromyalgia 682801538 Active 2022 Yuly Flex null, PA - [facility] 3 11:29:17 Migraine 13224335 Active 2022 Yuly [place] null, PA - [facility] 3 11:29:22 Restless legs 60965829 Active 2022 Yuly Flex null, PA - [facility] 3 11:29:26 Anxiety 25546993 Active 2022 Yuly Flex null, PA - [facility] 3 11:29:32 Chronic kidney disease 818006885 Active 2022 Yuly Flex null, PA - [facility] 08/15/2022 11:30:31 back fusion completed Yuly [place] PA - [facility] 08/15/2022 11:30:38 cholecystectomy [...] saturation in Arterial blood by Pulse oximetry Heart rate Respiratory rate Body temperature Systolic blood pressure Diastolic blood pressure Provider Name and Address Organization Details Last Updated DateTime 3 165.1 cm 31.1 kg/m2 33494.7 7 g 99 % 99 % 69 /min 20 /min 97.9 [degF] 124 mm[Hg] 85 mm[Hg] Yuly Mccord PA [facility] 3 11:32:09 Social History Question Answer Notes LastModified by [employer] Details LastModified Time Tobacco Smoking Status Never Smoker Yuly chávez PA - [facility] 08/15/2022 11:29:53 Have You Had Direct Contact, Or Contact During Intimacy, With Monkeypox Rash, Scabs, Or Body Fluids From A Person With Monkeypox? No Information not available 08/15/2022 Have You Recently Traveled Abroad? No Information not available 08/15/2022 Sex: Unknown Functional Status Question Answer Note LastModified by [employer] Details LastModified Time Do you use any illicit or recreational drugs? No Information not available 08/15/2022 Do you or have you ever used any other forms of tobacco or nicotine? No Information not available 08/15/2022 What is your level of alcohol consumption? None Information not available 08/15/2022 Mental Status None recorded. Family History Relationship [...] SNOMED-CT Code Diagnosis ICD10 Code Diagnosis Note [id number] [place] [address] [address] 08/15/2022 10:15:26 08/15/2022 12:00:33 Acute urinary tract infection 935443169 N39.0 Health Concerns Section Related Observation LastModified by Organization Detai ls LastModified Time None Recorded Concern Status LastModified by Organization Details LastModified Time None Recorded Advance Directives Directive None Recorded Payers Insurance Date Sequence Insurance Name Policy Number Policy Herrmann Covered Member ID Herrmann Member ID Guarantor Name 08/15/2022 1 [facility] - MEDICARE PREFERRED (MEDICARE REPLACEMENT HMO) [employer] Zaria Rigginsnasreenstephanie [id number] Zaria Monique 08/15/2022 2 [place] [facility] Zaria Rigginsfaith [id number] Zaria Monique Notes Date Note Type Note [...] or bladder issues. Edwin Casillas NP [address] [place], [address], [place] - [facility] 08/15/2022 12:00:14 OBGyn Episode No OBEpisode recorded.
[2024-11-30 09:05] VITALS: BP 100/64; PULSE 84; O2SAT 94; BMI 31.1
--- NOTE | 2024-11-30 09:05 | MHC.OFFVIS ---
Vital Signs 11/30/24 09:05 Height 5 ft 5 in Weight 187 lb BMI 31.1 BP 100/64 Blood Pressure Location Lt brachial Position Sitting Pulse 84 Pulse Source Pulse Oximeter Pulse Oximetry (%) 94 Oxygen Delivery Method Room Air Intake Visit Reasons: 2mon follow-up Intake Note: Patient presents 2 month follow up for migraines/RLS Accompanied by: Spouse Allergies No Known Allergies Allergy (Verified 11/30/24 09:05) Medication List - Last Reconciled 11/30/24 by MANINDER Trinh amitriptyline 30 mg (3 x 10 mg) PO BEDTIME 30 days ascorbic acid (vitamin C) 500 mg PO DAILY 90 days aspirin 81 mg PO DAILY clonazepam 1mg qam and 2 mg qhs orally .; 30 days cyanocobalamin (vitamin B-12) 1,000 mcg PO DAILY erenumab-aooe (Aimovig Autoinjector) 140 mg subcut QMONTH fluoxetine 80 mg (2 x 40 mg) PO DAILY 90 days lamotrigine 100 mg (4 x 25 mg) PO BEDTIME 90 days methenamine hippurate 1 g PO BID mirabegron ER (Myrbetriq) 50 mg PO DAILY multivitamin 1 tab PO DAILY pantoprazole 40 mg PO DAILY pregabalin 75 mg PO TID 30 days ropinirole 1 mg PO QAM ropinirole ER 2 mg PO BEDTIME 90 days sumatriptan succinate 100 mg PO BID PRN 30 days HPI Comments Details: 59-year-old female presents for follow-up of migraine, restless leg syndrome, depression/anxiety, chronic pain, gait difficulties, falls. Since last visit, patient has seen [facility] pain management, and is undergoing evaluation for spinal stimulator placement. States that she feels that she is getting weaker overall. Notes that she will try to do something more physical, and she will be able to do it, but then is wiped out the next day. Patient notes that starting last week, she came down with the flu, during this time she had increased weakness cough, congestion, wheezing increased headaches. She states she has started to feel better, but notes she has continued wheezing a shortness of breath on exertion- wonders what she can take for this. She would like to discuss coming off of fluoxetine in trying something different- feels is not helpful for her mood. She is compliant with lamotrigine. He is curious about trying Cymbalta as previously recommended by [facility] psychiatry, however is concerned about risk for weight gain. Her wonders if she would benefit from seeing a therapist or psychiatrist, however patient is hesitant to do psychoanalysis type therapy at this time. She states other than last week while she had the flu symptoms, her migraines have been well controlled. She is compliant with Aimovig, and has sumatriptan for as needed which is usually helpful She does continue to have breakthrough restless leg symptoms, has to get out of bed and walk the middle of the night. She is compliant with her ropinirole and pregabalin. Interval 09/29/2024 labs showed, CBC WNL, CMP WNL, iron 85, TIBC 317,% sat 27%, with low ferritin at 13 (no in RLS, goal is ferritin greater than 100). She stopped oral iron supplement, as it causes GI upset. 09/20/2024 previous HPI: 59-yr-old female presents for urgent follow-up following a psych eval d/t positive SI expressed to her PCP- as she felt that she was in too much pain- states her fibromyalgia had flared-up, was more achy, had joint pain. She states that is not 1 particular symptom or condition brought her to the point of expressing SI plan to her PCP, but rather accommodation of the fibromyalgia, burning pains from her thoracic oblique region into her legs, and her restless leg symptoms. While being evaluated in the acute psychiatric setting, the 7th grade social studies teacher reached out to us, we did make a referral to pain management for which he is waiting on an appointment for, and increased her gabapentin from 300 mg twice a day to 300 mg t.i.d.. Patient states that in the past she took up to gabapentin 900 mg t.i.d., without help for her back pain. She states that her restless leg symptoms started well after being on that high of a dose of gabapentin. Today, patient is hoping to optimize her pain management and medication to help her sleep. She can continues to have depression and anxiety, but denies SI. She wonders about stopping fluoxetine. She does not have a psychiatrist. She previously did have a psychiatric eval for med recommendations through [facility]. Reports burning pain from her upper thoracic region moving down her her back into her legs. She also has sharp pains in her bilateral oblique muscles and travels back towards but does not reach her spine. She is falling more- sometimes it is a/w lightheadedness, other times, she just falls. States she has had 13 falls a/w LOC or near-LOC in the past year. She is feeling bugs crawling under her skin when she is laying down, or even when walking in the am. She is more restless overall. The restless leg s/s are exacerbating her anxiety The ropinirole helps, but is currently on a lower dose of ropinirole 1mg bid as pharmacy did not have previous to mg ER bedtime dose- over the last 2 months She states her Aimovig has been effective for well-controlled on Aimovig. Has a few atypical headaches- more of a pressure headache, in base of her skull- a/w nausea/vomiting. [facility] Medical History Kidney stones White matter disease Fibromyalgia Memory loss History of traumatic head injury Numbness TIA (transient ischemic attack) Seizures SOB (shortness of breath) Incontinent of urine Sleep apnea Urinary urgency Syncope Obese Migraine Back pain Hyperlipidemia Frequent falls Colitis Chronic kidney disease, stage 2, mildly decreased GFR Atherosclerosis of coronary artery Anxiety Alkaline phosphatase raised Abrasion of face Concussion Confusion Hiatal hernia Surgical History History of repair of hiatal hernia History of surgery on lower extremity History of carpal tunnel release of both wrists Hx of vaginal hysterectomy Hx of gastric bypass History of lumbar fusion H/O colonoscopy History of esophagogastroduodenoscopy (EGD) Hx laparoscopic cholecystectomy Hx of bariatric surgery Bariatric surgery status Family History Father Lung cancer Sister Breast cancer Skin cancer of arm Mother COPD (chronic obstructive pulmonary disease) Paternal Grandmother Cancer Paternal Grandfather Throat cancer Maternal Grandfather Prostate cancer Social History Are you a primary inpatient care manager rn to a significant other at home: No Do you presently have visiting nurse or other home services: Yes [facility] Alcohol intake: never Patient Tobacco Use Status: Former Tobacco user Years Smoked: 3 Substance Use Type: Marijuana Physical Exam Vital Signs: Last Vital Signs Pulse 84 11/30/24 09:05 BP 100/64 11/30/24 09:05 Pulse Ox 94 11/30/24 09:05 Oxygen Delivery Method Room Air 11/30/24 09:05 BMI result Body Mass Index 31.1 Const General: cooperative and no acute distress Resp Effort & Inspection: normal respiratory effort and able to speak in complete sentences Auscultation: rhonchi throughout Cardio Rate: regular rate Rhythm: regular rhythm Neuro Other: Alert and orient x3 Slow to stand, overall gait steadier with cane. General: moves all extremities Cranial nerves: Yes CN's II-XII intact bilaterally Motor exam (neuro): no tremor noted Psych Appearance: grossly normal Mental Status: mental status grossly normal Speech and movement: Normal speech and movement present Affect: normal affect Attitude: cooperative Thought process: Normal thought process present Thought content: Normal thought content present Assessment & Plan Assessment & Plan (1) Paresthesia: Code(s): R20.2 - Paresthesia of skin Category: Medical (2) Frequent falls: Code(s): R29.6 - Repeated falls Category: Medical (3) Altered gait: Code(s): R26.9 - Unspecified abnormalities of gait and mobility Category: Medical (4) Low back pain: Code(s): M54.50 - Low back pain, unspecified Category: Medical (5) Migraine with aura: Code(s): G43.109 - Migraine with aura, not intractable, without status migrainosus Category: Medical (6) Restless leg syndrome: Code(s): G25.81 - Restless legs syndrome Category: Medical (7) Depression: Code(s): F32.A - Depression, unspecified Category: Medical (8) PTSD (post-traumatic stress disorder): Code(s): F43.10 - Post-traumatic stress disorder, unspecified Category: Medical (9) Multifactorial cognitive dysfunction: Code(s): F09 - Unspecified mental disorder due to known physiological condition Category: Medical (10) Low serum ferritin level: Code(s): R79.0 - Abnormal level of blood mineral Category: Medical Plan For respiratory symptoms: Patient advised to go to urgent Care today, information provided on local urgent cares, which have capacity to do x-rays. For h/o frequent falls, vertigo: EEG- normal. Tilt-table test- non-specific response- HR elevation w/ BP elevation response. DaTscan as scheduled. Brain MRI- partail empty sella, and small right and possibly also left petrous apex cephaloceles. No vision changes. Routine eye eam. Mild age-appropriate global cerebral volume loss. Nonspecific white matter disease, presumably chronic microangiopathy. Continue to optimize CV risk factors. . Patient has previously weaned off of verapamil. Continue to increase fluids. Future considerations: Reducing or weaning off of ropinirole, which this can cause drop attacks and orthostatic hypotension. For chronic pain, back pain: Continue pregabalin 75 mg 3 times per day. Follow-up with pain management for possible trial of back pain stimulator. Will take the liberty of referring pt to [facility]- a mult[facility] [employer] cognitive therapy for pain management, which patient agrees to. For migraines: Continue Aimovig 140mg sc q month. Continue Amitriptyline 30mg qhs- again consider decreasing in follow-up. Patient has weaned off the verapamil. Sumatriptan 100mg prn. Previous medication trials- Botox- ineffective. Verapamil- ineffective and likely contributed to orthostatic hypotensive symptoms. ? For RLS: We will refer patient for hematology consult, to neptali for possible IV iron infusion to augment patient's low serum ferritin level to a goal of greater than 100- as she has previously not tolerated oral iron supplements. Continue pregabalin 75 mg 3 times per day Continue Ropinirole 1mg IR twice a day- consider weaning off of this due to risk for orthostatic hypotension and compulsive behaviors. ? For cognition: Engage in cognitively stimulating activities ? For cognition, depression, PTSD: Wean off of fluoxetine from 80mg qd- to 60 mg daily x2 weeks, then 40 mg daily x2 weeks, then 20 mg daily x2 weeks. At which point, you will adjust the dose to 10 mg cap, 10 mg daily x2 weeks then 10 mg every other day for 2 weeks and stopped. Start bupropion XL 150 mg daily q.a.m.. Continue Lamotrigene 100mg qd for now. Continue clonazepam 1 mg in the morning and 2 mg daily at bedtime. Continue to engage in regular cognitively stimulating activities. Slowly increase paste physical activity- strategies discussed such as doing activities for 20 minutes at a time in the resting for 20 minutes, using a timer, using a white board to track progress. Patient to call us in 4 weeks with status. Will follow-up upon review of above and patient to follow-up in clinic in 3-6 months or sooner prn. Orders: Referrals Hematology & Oncology Referral G25.81 - Restless legs syndrome, R79.0 - Abnormal level of blood mineral Psychology Referral G89.4 - Chronic pain syndrome, M96.1 - Postlaminectomy syndrome, not elsewhere classified Medications: New bupropion HCl XL 150 mg PO QAM 30 days 30 tabs 1RF fluoxetine 3 caps qam x's 2 weeks, then 2 caps qam x's 2 weeks, then 1 cap q am x's 2 weeks, orally every morning; 6 weeks 84 caps 0RF Coding Level of Care Code Est Pt Level 4 (13589) Complex EM visit Add On G2211 Diagnoses Paresthesia R20.2 Frequent falls R29.6 Altered gait R26.9 Low back pain M54.50 Migraine with aura G43.109 Restless leg syndrome G25.81 Depression F32.A PTSD (post-traumatic stress disorder) F43.10 Multifactorial cognitive dysfunction F09 Low serum ferritin level R79.0
== END 2024-11-30 10:13 | disposition home or self-care (01) ==
LOC: HO.HSMS 08:57
PROVIDERS: PCP Family Medicine; Visit Provider Nurse Practitioner Family
DX: R20.2 Paresthesia of skin (principal); R29.6 Repeated falls; R26.9 Unspecified abnormalities of gait and mobility; M54.50 Low back pain, unspecified; G43.109 Migraine with aura, not intractable, without status migrainosus; G25.81 Restless legs syndrome; F32.A Depression, unspecified; F43.10 Post-traumatic stress disorder, unspecified; F09 Unspecified mental disorder due to known physiological condition; R79.0 Abnormal level of blood mineral
CPT/HCPCS: 99214; G2211

== ENCOUNTER → 2024-11-30 08:56 | Outpatient (BNVA) | payer MEDICARE, MEDICAID, SELFPAY | PROVIDERS: PCP Family Medicine; Visit Provider Nurse Practitioner Family | DX: R20.2 Paresthesia of skin (principal); R29.6 Repeated falls; M54.50 Low back pain, unspecified; R79.0 Abnormal level of blood mineral; G43.109 Migraine with aura, not intractable, without status migrainosus; G25.81 Restless legs syndrome; F32.A Depression, unspecified; F43.10 Post-traumatic stress disorder, unspecified; F09 Unspecified mental disorder due to known physiological condition; Z79.899 Other long term (current) drug therapy | CPT/HCPCS: 99212 ==

== ENCOUNTER 2025-04-26 13:01 | Outpatient (AMB) | payer MEDICARE, MEDICAID, SELFPAY ==
--- NOTE | 2025-04-26 13:04 | HO.SPINEOV ---
Intake Visit Reasons: back pain after surgery Intake Note: Ms. mAaya is here today c/o back pain again after surgery. MRI done at [place]. Exhaust Equipment Operator Required: No Allergies No Known Allergies Allergy (Verified 04/26/25 13:05) Assessment & Plan Assessment & Plan (1) Lumbar adjacent segment disease with spondylolisthesis: Code(s): M51.36 - Other intervertebral disc degeneration, lumbar region; M43.16 - Spondylolisthesis, lumbar region Category: Medical Plan Dear colleague, On 04/26/2025, I saw for follow-up Zaria Amaya. She is status post L3-L5 minimally invasive lumbar fusion 2019 and removal of the synovial cyst compressing the left S1 nerve root in 2023. She responded well to both surgeries. She returns complaining of severe low back pain in the low lumbar region. This started after multiple falls. She has frequent falls due to balance problems. She was evaluated by by me spinous sports who recommended a sprint device. She comes in to review her latest MRIs of the thoracic spine and lumbar spine and for more advice. The MRI of the thoracic spine shows multilevel mild degenerative changes with disc bulges without spinal cord compression. The MRI of the lumbar spine shows status post L3-L5 lumbar fusion with adjacent lumbar degenerative disc disease L2-3. On exam, she has difficulty getting out of a chair due to back pain. She stands in a flexed position. Extension is painful. No neurological deficits of the lower extremities. I advised the patient to go ahead and trial the sprint device. If no improvement in symptoms occur then I would recommend to come back and see me to discuss treatment of the adjacent degenerative disc disease. I am hesitant to offer her a additional lumbar fusion due to the fact that she already had previous spinal surgeries done in [place] from experience that the effectiveness of spinal interventions are decreasing with the amount of surgeries. Therefore, I hope that this spring device will be successful. I spent 20 minutes in his consult reviewing imaging and discussing plan of care. Benjamin Menendez MD, PhD Spine Fellowship Trained Neurosurgeon Director, [facility] Coding Level of Care Code Est Pt Level 3 (74270) Diagnoses Lumbar adjacent segment disease with spondylolisthesis M51.36; M43.16
--- OUTSIDE RECORDS SUMMARY | 2025-04-26 15:02 | XMS_ITS | Data Portability ---
Author Organization [facility], [address] Address [address] [place] [address] Care Team Providers Care Rotor Assembler Name Role Phone JOSE CATES Primary Care Provider Assessment No assessment recorded. Plan of Treatment Reminders Order Date Submit Date Provider Last Modified By Organization Details Last Modified Time Details Appointments None recorded. Lab urinalysis, dipstick 2022 023 [email or web address] [facility], [address] [place] [address], [id number], 3 11:59:47 culture, urine 2022 023 [facility], [address] [place] [address], [place], [address], 3 18:06:05 Referral None recorded. Procedures None recorded. Surgeries None recorded. Imaging None recorded. Medication Orders cephalexin 500 mg capsule 2022 023 [facility] #[id number], [address] , [place], [address], 3 11:59:49 Pyridium 200 mg tablet 2022 023 [facility] #[id number], [address], [place], [address], 3 11:59:49 Patient TargetsNo targets recorded. Patient Instructions Encounter Date Encounter Id Patient Instructions Last Modified By Organization Details Last Modified Time 08/15/2022 [id number] We recommend you get a repeat urinalysis [...] routine FINAL REPORT abnormal Not Available [facility] ([facility]) [address] [facility], [place], [address], 08/19/2022 06:07:44 08/15/1908/19/2022 URINE CULTU RE, ROUTI [...] ng units per mL Not Available [facility] ([facility]) [address] [facility], [place], [address], 08/19/2022 06:07:44 08/15/1908/19/2022 URINE CULTU RE, CLAUDETTEI NE antimicrobia l susceptibili ty COMMEN T [...] thopr im/Bernstein lfa S Not Available [facility] ([facility]) [address] [facility], [place], [address], 08/19/2022 06:07:44 08/15/19 23 08/15/2022 urina lysis , dipst ick Unknown Analyte Normal = light yellow Not Available krishna pe [address], [address], 08/15/2022 11:23:42 08/15/19 23 08/15/2022 urina lysis , dipst ick Unknown Analyte Marianne Not Available [address] [facility] [address], [address], 08/15/2022 11:23:42 08/15/19 23 08/15/2022 urina lysis , dipst ick Unknown Analyte Normal = clear Not Available krishna nogueira [address], [address], 08/15/2022 11:23:42 08/15/19 23 08/15/2022 urina lysis , dipst ick Unknown Analyte Turbid Not Available [facility] [address], [address], 08/15/2022 11:23:42 02/12/08/15/2022 urina lysis , dipst ick Unknown Analyte Normal = negati ve Not Available krishna nogueira [address], [place], [address], 08/15/2022 11:23:42 08/15/19 23 08/15/2022 urina lysis , dipst ick Unknown Analyte Negati ve Not Available krishna nogueira [address], [place], [address], 08/15/2022 11:23:42 08/15/19 23 08/15/2022 urina lysis , dipst ick Unknown Analyte Normal = Negati ve Not Available krishna nogueira [address], [place], [address], 08/15/2022 11:23:42 08/15/19 23 08/15/2022 urina lysis , dipst ick Unknown Analyte Negati ve Not Available krishna nogueira [address], [place], [address], 08/15/2022 11:23:42 08/15/1908/15/2022 urina lysis , dipst ick Unknown Analyte Normal = Negati ve Not Available krishna nogueira [address], [place], [address], 08/15/2022 11:23:42 08/15/1908/15/2022 urina lysis , dipst ick Unknown Analyte Negati ve Not Available krishna nogueira [address], [place], [place], [address], 08/15/2022 11:23:42 08/15/19 23 08/15/2022 urina lysis , dipst ick Unknown Analyte Normal = 1.010, 1.015, 1.020 Not Available krishna nogueira [address], [place], [address], 08/15/2022 11:23:42 08/15/19 23 08/15/2022 urina lysis , dipst ick Unknown Analyte 1.020 Not Available [facility] [address], [place], [address], 08/15/2022 11:23:42 08/15/19 23 08/15/2022 urina lysis , dipst ick Unknown Analyte Normal = Negati ve Not Available krishna nogueira [address], [place], [address], 08/15/2022 11:23:42 08/15/19 23 08/15/2022 urina lysis , dipst ick Unknown Analyte Trace- intact Not Available [facility] [address], [place], [address], 08/15/2022 11:23:42 08/15/19 23 08/15/2022 urina lysis , dipst ick Unknown Analyte Normal = 6.5, 7.0, 7.5, 8.0 Not Available krishna [address], [place], [address], 08/15/2022 11:23:42 08/15/19 23 08/15/2022 urina lysis , dipst ick Unknown Analyte 7.0 Not Available [address], [place], [address], 08/15/2022 11:23:42 08/15/19 23 08/15/2022 urina lysis , dipst ick Unknown Analyte Normal = Negati ve Not Available [facility] [address], [place], [address], 08/15/2022 11:23:42 08/15/19 23 08/15/2022 urina lysis , dipst ick Unknown Analyte 30 mg/dL Not Available krishna pe [address], [place], [address], 08/15/2022 11:23:42 08/15/1908/15/2022 urina lysis , dipst ick Unknown Analyte Normal = 0.2, 1.0 Not Available [address], [place], [address], 08/15/2022 11:23:42 08/15/19 23 08/15/2022 urina lysis , dipst ick Unknown Analyte 1.0 E.U./d L Not Available [address], [place], [address], 08/15/2022 11:23:42 08/15/19 23 08/15/2022 urina lysis , dipst ick Unknown Analyte Normal = Negati ve Not Available [address] [place] [address], [place], [address], 08/15/2022 11:23:42 08/15/19 23 08/15/2022 urina lysis , dipst ick Unknown Analyte Positi ve Not Available [address] [place] [address], [place], [address], 08/15/2022 11:23:42 08/15/1908/15/2022 urina lysis , dipst ick Unknown Analyte Normal = Negati ve Not Available [address], [place], [address], 08/15/2022 11:23:42 08/15/19 23 08/15/2022 urina lysis , dipst ick Unknown Analyte Small Not Available [address] [place] [address], [place], [address], 08/15/2022 11:23:42 Result Notes None recorded. Problems Name Problem SNOMED Code Status Onset Date Resolution Date Notes Provider Name and Address Organization Details Recorded Time Depressive disorder 30483902 Active 2022 Yuly [place] null, [place] - [facility] 3 11:28:38 Postconcussion syndrome 91240673 Active 2022 Yuly [place] null, [place] - [facility] 3 11:28:50 Vertigo 722264066 Active 2022 Yuly [place] null, [place] - [facility] 3 11:28:57 Post-traumatic stress disorder 61011522 Active 2022 Yuly [place] null, PA - [facility] 3 11:29:08 Fibromyalgia 063716122 Active 2022 Yuly Flex null, PA - [facility] 3 11:29:17 Migraine 56086723 Active 2022 Yuly [place] null, PA - [facility] 3 11:29:22 Restless legs syndrome 66549367 Active 2022 Yuly [place] null, PA - [facility] 3 11:29:26 Anxiety 90437569 Active 2022 Yuly Flex null, PA - [facility] 3 11:29:32 Chronic kidney disease 364327643 Active 2022 Yuly [place] null, PA - [facility] 3 11:29:39 Problem Notes None recorded. Procedures Surgical History Date Name Laterality Status Provider Name and Address Organization Details Recorded Time lithotripsy completed Yuly Flex PA - [facility] 08/15/2022 11:30:05 open reduction of fracture of femur with internal fixation completed Yuly Flex PA - [facility] 08/15/2022 11:30:15 hernia repair completed Yuly [place] PA - [facility] 08/15/2022 11:30:24 Gastric bypass for obesity completed Yuly Flex PA - [facility] 08/15/2022 11:30:31 back fusion completed Yuly Flex PA - [facility] 08/15/2022 11:30:38 cholecystectomy completed Yuly Mccord P A - [facility] 08/15/2022 11:30:43 hysterectomy completed Yulypan Mccord PA - [facility] 08/15/2022 11:31:19 Imaging [...] Heart rate Respiratory rate Body temperature Systolic And Diastolic Provider Name and Address Organization Details Last Updated DateTime 3 165.1 cm 31.1 kg/m2 17797.7 7 g 99 % 99 % 10 69 /min 20 /min 97.9 [degF] 124/85 mm[Hg] Yuly Mccord PA [facility] 3 11:32:09 Social History Question Answer Notes LastModified by [employer] Details LastModified Time Tobacco Smoking Status Never Smoker Yuly chávez PA [facility] 08/15/2022 11:29:53 Have You Had Direct Contact, Or Contact During Intimacy, With Monkeypox Rash, Scabs, Or Body Fluids From A Person With Monkeypox? No Information not available 08/15/2022 Have You Recently Traveled Abroad? No Information not available 08/15/2022 Sex: Unknown Functional Status Question Answer Note LastModified by [employer] ion Details LastModified Time Do you use any [...] Diagnosis SNOMED-CT Code Diagnosis ICD10 Code Diagnosis IMO Codes Diagnosis Note [id number] [place] Casillas [place] [address] [place] [address] 08/15/2022 10:15:26 08/15/2022 12:00:33 Acute urinary tract infection 168612983 N39.0 Health Concerns Section Related Observation LastModified by Organization Detai ls LastModified Time None Recorded Concern Status LastModified by Organization Details LastModified Time None Recorded Advance Directives Directive None Recorded Payers Insurance Date Sequence Insurance Name Policy Number Policy Herrmann Covered Member ID Herrmann Member ID Guarantor Name 08/15/2022 1 [facility] - MEDICARE PREFERRED (MEDICARE REPLACEMENT HMO) HAM Zaria Amaya [id number] Zaria Amaya 08/15/2022 2 [place] [facility] Zaria Amaya [id number] Zaria Amaya Notes Date Note Type Note Provider Name and Address Organization Details Recorded Time 08/15/2022 text/html Urinary Complain t FemaleReported by PatientUrinary problemsFor uti symptoms, patient reportsurgency,urinary frequency, andabdominal painbut reportsno blood in the urine,no pain during urination,no vaginal discharge,no pain in the flank,no fever/chills,no incontinence,no recurrent uti, andno known exposure to std. For source of patient information, patient reportsinformation obtained from patientandpatient arrived at urgent care ambulatory. For severity, patient reportsmoderate. For duration, patient reports7 days. For modifying factors, patient reportsnothing gives relief.frequency and urgency x 7 day. denies any fever or fever with chills, denies any History of renal stone or bladder issues. frequency and urgency x 1 day. denies any fever or fever with chills, denies any History of renal stone or bladder issues. Edwin Casillas NP [address] [place], [address], [place] - [facility] 08/15/2022 12:00:14 OBGyn Episode No OBEpisode recorded.
--- OUTSIDE RECORDS SUMMARY | 2025-04-26 15:03 | XMS_ITS | Clinical Summary ---
Author Organization [address] Building Address [address] [place] [address] Phone Care Team Providers Care Math Professor Name Role Phone Shaun Chaudhry Primary Care Provider [phone] Medications No known medications Active Problems No known active problems Surgical History Surgery Date Site/Laterality Comments HYSTERECTOMY PROCEDURE: HISTORICAL HYSTERECTOMY COLONOSCOPY 02/25/2014 PROCEDURE: HISTORICAL COLONOSCOPY GASTRIC BYPASS PROCEDURE: MS GASTRIC RSTCV W/BYP W/SM INT RCNSTJ LIMIT ABSRPJ FEMUR FRACTURE SURGERY PROCEDURE: MS OPEN TX FEMORAL FRACTURE DISTAL MED/LAT CONDYLE HERNIA REPAIR PROCEDURE: HISTORICAL HERNIA REPAIR/UMB CHOLECYSTECTOMY PROCEDURE: MS CHOLECYSTECTOMY OTHER SURGICAL HISTORY PROCEDURE: MS SPINE DEVICE IMPLANT SURGERY OTHER SURGICAL HISTORY 06/30/2017 PROCEDURE: MS UNLISTED VASCULAR ENDOSCOPY PROCEDURE LEG SURGERY PROCEDURE: [...] DX:Fibromyalgia Stage 3 chronic kidney disea se (CMS/HCC V24, CMS/HCC V28) DX:Stage 3 chronic kidney d isease (HCC) Tinnitus DX:Tinnitus NAFLD (nonalcoholic fatty li regan disease) 01/22/2020 DX:NAFLD (nonalcoholic fatty liver disease) Depression 01/22/2020 DX:Depression RAOUL (obstructive sleep apnea) DX :RAOUL (obstructive sleep apnea) CKD (chronic kidney disease) stage 3, GFR 30-59 ml/min ([facility] V24, [facility] V28) 01/22/2020 DX:CKD (chronic kidney disea se) stage 3, GFR 30-59 ml/min ([facility]) Esophageal dysmotility 01/22/2020 DX:Esopha geal dysmotility GERD [...] Sexual Orientation Not on file Obstetrics History Last Filed Vital Signs Vital Sign Reading Time Taken Comments Blood Pressure 108/58 11/30/2024 4:41 PM EDT Pulse 84 11/30/2024 4:41 PM EDT Temperature 36.9 C (98.5 F) 11/30/2024 4:41 PM EDT Respiratory Rate - - Oxygen Saturation 97% 11/30/2024 4:41 PM EDT Inhaled Oxygen Concentration - - Weight - - Height - - Body Mass Index - - Plan of Treatment Health Maintenance Due Date Last Done Comments Breast Cancer Screening 1965 Colorectal Cancer Screening: Colonoscopy 1965 Hepatitis A Vaccines (1 of 2 - Risk 2-dose series) 1982 Cervical Cancer Screening: Pap Smear 1984 Pneumococcal Vaccine: 50+ Years (1 of 1 - PCV) 2013 RSV Immunization Adult Patients (1 - Risk 50-74 years 1-dose series) 2013 Zoster Vaccines (2 of 2) 06/04/2021 04/09/2021 Cholesterol Screening (Lipid Panel) 06/06/2022 HIV Screening 06/06/2022 Hepatitis C Screening 06/06/2022 Medicare Annual Wellness Visit 06/06/2022 Social Influencers of Health Screening 06/06/2022 Hypertension/CHF/CAD Annual BMP Blood Test 06/17/2022 Hepatitis B Vaccines (1 of 3 - Risk 3-dose series) 2023 Depression Screening 07/04/2024 COVID-19 Vaccine ( season) 2025 11/23/2021, 04/16/2021, 10/06/2020, Additional history exists Influenza Vaccine (#1) 2025 , 04/09/2021, 04/06/2020, Additional history exists DTaP,Tdap,and Td Vaccines (2 - Td or Tdap) 08/19/2032 08/19/2022 HIB Vaccines Aged Out No longer eligi [...] age to complete this topic Meningococcal B Vaccine Aged Out No l onger eligible based on patient's age to complete this topic RSV Immunization Patients Under 20 months Aged Out No longer eligible based on patient's age to complete this topic Varicella Vaccines Aged Out No longer eligible based on patient's age to complete this topic Insurance [place] Advance Directives Documents on File Type Date Recorded 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
== END 2025-04-26 13:27 | disposition home or self-care (01) ==
LOC: HO.HNS 13:02
PROVIDERS: Visit Provider Neurological Surgery
DX: M51.369 Other intervertebral disc degeneration, lumbar region without mention of lumbar back pain or lower extremity pain (principal); M43.16 Spondylolisthesis, lumbar region
CPT/HCPCS: 99213

== ENCOUNTER → 2025-04-26 13:01 | Outpatient (BNVA) | payer MEDICARE, MEDICAID, SELFPAY | PROVIDERS: Visit Provider Neurological Surgery | DX: M51.369 Other intervertebral disc degeneration, lumbar region without mention of lumbar back pain or lower extremity pain (principal); M43.16 Spondylolisthesis, lumbar region | CPT/HCPCS: 99212 ==

== ENCOUNTER 2025-05-28 09:31 | Outpatient (AMB) | payer MEDICARE, MEDICAID, SELFPAY ==
[2025-05-28 09:53] VITALS: BP 100/80; PULSE 66; O2SAT 97
--- NOTE | 2025-05-28 09:53 | A.OFFVIS_ITS ---
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 Instructions: Resume on 05/24/24. You may resume aspirin 7 days after surgery bupropion HCl XL 150 mg PO QAM 30 days clonazepam 1mg qam and 2 mg qhs orally .; 30 days cyanocobalamin (vitamin B-12) 1,000 mcg PO DAILY duloxetine 30 mg PO DAILY 30 days erenumab-aooe (Aimovig Autoinjector) 140 mg subcut QMONTH 1 month lamotrigine 100 mg (4 x 25 mg) PO BEDTIME 90 days methenamine hippurate 1 g PO BID mirabegron ER (Myrbetriq) 50 mg PO DAILY multivitamin 1 tab PO DAILY pregabalin 75 mg PO TID 30 days ropinirole 1 mg PO QAM ropinirole ER 2 mg PO BEDTIME 90 days sumatriptan succinate 100 mg PO BID PRN 30 days HPI Comments Details: 59-year-old female presents for follow-up of migraine, restless leg syndrome, depression/anxiety, chronic pain, gait difficulties, falls. She is accompanied by her living GSE MECHANIC, who helps with history. After the last visit, she successfully weaned off of fluoxetine, and then started on low dose duloxetine 30mg daily which he is tolerating well. She reports she continues to be in pain 24/01, due to her spine pain. Her PCP has started her on Tramadol qhs, which helps with nocturnal pain symptoms, but does nothing for her daytime pain symptoms. She wonders about increasing my duloxetine and/or the pregabalin. Per the patient, due to paperwork issues, her pain management was changed from [facility] pain management to [facility]. She is scheduled to undergo a trial pain stimulator by Dr Kent at [facility], and also had clearance for this by Dr Menendez, [facility] neuro-spine. She reports her mood has been ok, however she still has days when she is prone to stay in bed due to her mood. She is concerned about weight gain s/p having lost a significant amount of weight s/p gastric bypass surgery in 2019. She feels the weight gain is exacerbating her depression, pain symptoms, as well as worsening her CV risk factors. She is working with her live-in GSE MECHANIC to start a paced exercise routine. But notes she still has to be careful, as she can still be prone to passing out. She is taking a lot of fluids, including gatorade. She declined to do the [facility] pain reprocessing tx- she did not recall declining it, and now is not sure if she would like to pursue this, as she feels overwhelmed by too many appt's. States RLS is stable on Ropinirole. She did not have previously ordered hematology consult- she did not recall this and feels overwhelmed by too many appointments, so would like to hold on this. She reports her migraines are well-controlled, has had 2 migraine attacks in the last several months. 11/30/2024, HPI: Since last visit, patient has seen [facility] pain management, and is undergoing evaluation for spinal stimulator placement. States that she feels that she is getting weaker overall. Notes that she will try to do something more physical, and she will be able to do it, but then is wiped out the next day. Patient notes that starting last week, she came down with the flu, during this time she had increased weakness cough, congestion, wheezing increased headaches. She states she has started to feel better, but notes she has continued wheezing a shortness of breath on exertion- wonders what she can take for this. She would like to discuss coming off of fluoxetine in trying something different- feels is not helpful for her mood. She is compliant with lamotrigine. He is curious about trying Cymbalta as previously recommended by [facility] psychiatry, however is concerned about risk for weight gain. Her wonders if she would benefit from seeing a therapist or psychiatrist, however patient is hesitant to do psychoanalysis type therapy at this time. She states other than last week while she had the flu symptoms, her migraines have been well controlled. She is compliant with Aimovig, and has sumatriptan for as needed which is usually helpful She does continue to have breakthrough restless leg symptoms, has to get out of bed and walk the middle of the night. She is compliant with her ropinirole and pregabalin. Interval 09/29/2024 labs showed, CBC WNL, CMP WNL, iron 85, TIBC 317,% sat 27%, with low ferritin at 13 (no in RLS, goal is ferritin greater than 100). She stopped oral iron supplement, as it causes GI upset. 09/20/2024 previous HPI: 59-yr-old female presents for urgent follow-up following a psych eval d/t positive SI expressed to her PCP- as she felt that she was in too much pain- states her fibromyalgia had flared-up, was more achy, had joint pain. She states that is not 1 particular symptom or condition brought her to the point of expressing SI plan to her PCP, but rather accommodation of the fibromyalgia, burning pains from her thoracic oblique region into her legs, and her restless leg symptoms. While being evaluated in the acute psychiatric setting, the soci al worker reached out to us, we did make a referral to pain management for which he is waiting on an appointment for, and increased her gabapentin from 300 mg twice a day to 300 mg t.i.d.. Patient states that in the past she took up to gabapentin 900 mg t.i.d., without help for her back pain. She states that her restless leg symptoms started well after being on that high of a dose of gabapentin. Today, patient is hoping to optimize her pain management and medication to help her sleep. She can continues to have depression and anxiety, but denies SI. She wonders about stopping fluoxetine. She does not have a psychiatrist. She previously did have a psychiatric eval for med recommendations through [facility]. Reports burning pain from her upper thoracic region moving down her her back into her legs. She also has sharp pains in her bilateral oblique muscles and travels back towards but does not reach her spine. She is falling more- sometimes it is a/w lightheadedness, other times, she just falls. States she has had 13 falls a/w LOC or near-LOC in the past year. She is feeling bugs crawling under her skin when she is laying down, or even when walking in the am. She is more restless overall. The restless leg s/s are exacerbating her anxiety The ropinirole helps, but is currently on a lower dose of ropinirole 1mg bid as pharmacy did not have previous to mg ER bedtime dose- over the last 2 months She states her Aimovig has been effective for well-controlled on Aimovig. Has a few atypical headaches- more of a pressure headache, in base of her skull- a/w nausea/vomiting. [facility] Medical History Kidney stones White matter disease Fibromyalgia Memory loss History of traumatic head injury Numbness TIA (transient ischemic attack) Seizures SOB (shortness of breath) Incontinent of urine Sleep apnea Urinary urgency Syncope Obese Migraine Back pain Hyperlipidemia Frequent falls Colitis Chronic kidney disease, stage 2, mildly decreased GFR Atherosclerosis of coronary artery Anxiety Alkaline phosphatase raised Abrasion of face Concussion Confusion Hiatal hernia Surgical History History of repair of hiatal hernia History of surgery on lower extremity History of carpal tunnel release of both wrists Hx of vaginal hysterectomy Hx of gastric bypass History of lumbar fusion H/O colonoscopy History of esophagogastroduodenoscopy (EGD) Hx laparoscopic cholecystectomy Hx of bariatric surgery Bariatric surgery status Family History Father Lung cancer Sister Breast cancer Skin cancer of arm Mother COPD (chronic obstructive pulmonary disease) Paternal Grandmother Cancer Paternal Grandfather Throat cancer Maternal Grandfather Prostate cancer Social History Are you a primary respiratory care practitioner to a significant other at home: No Do you presently have visiting nurse or other home services: Yes ([facility] --[employer]CHANIC) Alcohol intake: never Patient Tobacco Use Status: Former Tobacco user Years Smoked: 3 Substance Use Type: Marijuana Physical Exam Vital Signs: Last Vital Signs Pulse 66 05/28/25 09:53 BP 100/80 05/28/25 09:53 Pulse Ox 97 05/28/25 09:53 Oxygen Delivery Method Room Air 05/28/25 09:53 Const General: cooperative and no acute distress Resp Effort & Inspection: normal respiratory effort and able to speak in complete sentences Auscultation: rhonchi throughout Cardio Rate: regular rate Rhythm: regular rhythm Neuro Other: Alert and orient x3 Slow to stand, steady with walker General: moves all extremities Cranial nerves: Yes CN's II-XII intact bilaterally Motor exam (neuro): no tremor noted Psych Appearance: grossly normal Mental Status: mental status grossly normal Speech and movement: Normal speech and movement present Affect: normal affect Attitude: cooperative Thought process: Normal thought process present Thought content: Normal thought content present Assessment & Plan Assessment & Plan (1) Paresthesia: Code(s): R20.2 - Paresthesia of skin Category: Medical (2) Frequent falls: Code(s): R29.6 - Repeated falls Category: Medical (3) Altered gait: Code(s): R26.9 - Unspecified abnormalities of gait and mobility Category: Medical (4) Migraine with aura: Code(s): G43.109 - Migraine with aura, not intractable, without status migrainosus Category: Medical Qualifiers: Status migrainosus presence: without status migrainosus Intractability: not intractable Qualified Code(s): G43.109 - Migraine with aura, not intractable, without status migrainosus (5) Restless leg syndrome: Code(s): G25.81 - Restless legs syndrome Category: Medical (6) Depression: Code(s): F32.A - Depression, unspecified Category: Medical Qualifiers: Depression Type: major depressive disorder Major depression recurrence: recurrent Active/Remission status: currently active Major depression episode severity: moderate Qualified Code(s): F33.1 - Major depressive disorder, recurrent, moderate (7) PTSD (post-traumatic stress disorder): Code(s): F43.10 - Post-traumatic stress disorder, unspecified Category: Medical (8) Multifactorial cognitive dysfunction: Code(s): F09 - Unspecified mental disorder due to known physiological condition Category: Medical (9) Weight gain: Code(s): R63.5 - Abnormal weight gain Category: Medical Plan For weight gain: Will request medical weight management consult For h/o frequent falls, vertigo: Previous workup: * EEG- normal. * Tilt-table test- non-specific response- HR elevation w/ BP elevation response. * 02/24/2024 DaTscan negative * Brain MRI- partail empty sella, and small right and possibly also left petrous apex cephaloceles. Mild age-appropriate global cerebral volume loss. Nonspecific white matter disease, presumably chronic microangiopathy. Continue to optimize CV risk factors. . Patient has previously weaned off of verapamil. Continue to increase fluids- to a goal of 60-80 fluid oz per day, including onto 2 servings of electrolyte replacements supplement Future considerations: Reducing or weaning off of ropinirole, which this can cause drop attacks and orthostatic hypotension. For chronic pain, back pain: Increase duloxetine to 60 mg daily Continue pregabalin 75 mg 3 times per day. Tramadol q.h.s. per PCP Follow-up with pain management for trial of back pain stimulator. Pt declined the V[facility] referal, but does not recall doing this- VividCortex- a multivisit virtual cognitive therapy for pain management. Future consideration: If increase in duloxetine is ineffective, could consider increasing her pregabalin dose For migraines: Continue Aimovig 140mg sc q month. Continue Amitriptyline 30mg qhs- again consider decreasing in follow-up. Sumatriptan 100mg prn. Previous medication trials- Botox- ineffective. Verapamil- ineffective and likely contributed to orthostatic hypotensive symptoms. ? For RLS: Patient asks to hold hematology consult, to eval for possible IV iron infusion to augment patient's low serum ferritin level to a goal of greater than 100- as she has previously not tolerated oral iron supplements. Continue pregabalin 75 mg 3 times per day Continue Ropinirole 1mg IR twice a day- consider weaning off of this due to risk for orthostatic hypotension and compulsive behaviors. She may benefit from reading ?navigating life with restless leg syndrome? by Dr Ybarra Future considerations- Nidra device- would depend on whether or not she undergo permanent pain stimulator placement ? For cognition: Engage in cognitively stimulating activities ? For cognition, depression, PTSD: Stop Duloxetine 30mg daily Start Duloxetine 60mg daily Continue Bupropion XL 150 mg daily q.a.m.. Continue Lamotrigene 100mg qd for now. Continue clonazepam 1 mg in the morning and 2 mg daily at bedtime. Continue to engage in regular cognitively stimulating activities. Encouraged to schedule, and SLOWLY increase physical activity: * Choose exercises that she enjoys, such as ain the pool or her recumbent bike. * When she is more prone to lightheadedness, for lower intensity and seated exercises. * Previously discussed strategies, such as doing activities for 20 minutes at a time in the resting for 20 minutes, using a timer, using a white board to track progress. Will follow-up upon review of above and patient to follow-up in clinic in 3-6 months or sooner prn. Orders: Referrals Medical Weight Management Referral E66.811 - Obesity, class 1, R63.5 - A bnormal weight gain, Z98.84 - Bariatric surgery status Medications: New duloxetine 60 mg PO DAILY 90 caps 1RF 90 days Discontinued duloxetine Discontinued Reason: Doctor's Order 30 mg PO DAILY 30 days 30 caps 11RF Coding Level of Care Code Complex visit Add On G2211 Diagnoses Paresthesia R20.2 Frequent falls R29.6 Altered gait R26.9 Migraine with aura and without status migrainosus, not intractable G43.109 Status migrainosus presence: without status migrainosus Intractability: not intractable Restless leg syndrome G25.81 Moderate episode of recurrent major depressive disorder F33.1 Depression Type: major depressive disorder Major depression recurrence: recurrent Active/Remission status: currently active Major depression episode severity: moderate PTSD (post-traumatic stress disorder) F43.10 Multifactorial cognitive dysfunction F09 Weight gain R63.5
--- OUTSIDE RECORDS SUMMARY | 2025-05-28 11:00 | XMS_ITS | Data Portability ---
Author Organization [facility], [address] Address [address] [place] [address] Care Team Providers Care Attendant Sales Name Role Phone JOSE CATES Primary Care Provider Assessment No assessment recorded. Plan of Treatment Reminders Order Date Submit Date Provider Last Modified By Organization Details Last Modified Time Details Appointments None recorded. Lab urinalysis, dipstick 2022 023 [email or web address], [address] [place] [address], [id number], 3 11:59:47 culture, urine 2022 023 [facility], [address] [place] [address], [place], [address], 3 18:06:05 Referral None recorded. Procedures None recorded. Surgeries None recorded. Imaging None recorded. Medication Orders cephalexin 500 mg capsule 2022 023 [id number], [address] , [place], [address], 3 11:59:49 Pyridium 200 mg tablet 2022 023 [id number], [address], [place], [address], 3 11:59:49 Patient TargetsNo targets recorded. Patient Instructions Encounter Date Encounter Id Patient Instructions Last Modified By Organization Details Last Modified Time 08/15/2022 [id number] We recommend you get a repeat urinalysis [...] routine FINAL REPORT abnormal Not Available [facility] ([facility]) [address] [facility], [place], [address], 08/19/2022 06:07:44 08/15/1908/19/2022 URINE CULTU RE, ROUTI [...] ng units per mL Not Available [facility] ([facility]) [address] [facility], [place], [address], 08/19/2022 06:07:44 08/15/1908/19/2022 URINE CULTU RE, CLAUDETTEI [...] thopr im/Bernstein lfa S Not Available [facility] ([facility]) [address] [facility], [place], [address], 08/19/2022 06:07:44 08/15/19 23 08/15/2022 urina lysis , dipst ick Unknown Analyte Normal = light yellow Not Available krishna pe [address], [address], 08/15/2022 11:23:42 08/15/19 23 08/15/2022 urina lysis , dipst ick Unknown Analyte Marianne Not Available [address] [facility] [address], [address], 08/15/2022 11:23:42 08/15/19 23 08/15/2022 urina lysis , dipst ick Unknown Analyte Normal = clear Not Available krishna nogueira [address], [address], 08/15/2022 11:23:42 08/15/19 23 08/15/2022 urina lysis , dipst ick Unknown Analyte Turbid Not Available [facility] [address], [address], 08/15/2022 11:23:42 02/12/08/15/2022 urina lysis , dipst ick Unknown Analyte Normal = negati ve Not Available krishna nogueira [address], [place], [address], 08/15/2022 11:23:42 08/15/19 23 08/15/2022 urina lysis , dipst ick Unknown Analyte Negati ve Not Available krishna nogueira [address], [place], [address], 08/15/2022 11:23:42 08/15/19 23 08/15/2022 urina lysis , dipst ick Unknown Analyte Normal = Negati ve Not Available krishna nogueira [address], [place], [address], 08/15/2022 11:23:42 08/15/19 23 08/15/2022 urina lysis , dipst ick Unknown Analyte Negati ve Not Available krishna nogueira [address], [place], [address], 08/15/2022 11:23:42 08/15/1908/15/2022 urina lysis , dipst ick Unknown Analyte Normal = Negati ve Not Available krishna nogueira [address], [place], [address], 08/15/2022 11:23:42 08/15/1908/15/2022 urina lysis , dipst ick Unknown Analyte Negati ve Not Available krishna nogueira [address], [place], [place], [address], 08/15/2022 11:23:42 08/15/19 23 08/15/2022 urina lysis , dipst ick Unknown Analyte Normal = 1.010, 1.015, 1.020 Not Available krishna nogueira [address], [place], [address], 08/15/2022 11:23:42 08/15/19 23 08/15/2022 urina lysis , dipst ick Unknown Analyte 1.020 Not Available [facility] [address], [place], [address], 08/15/2022 11:23:42 08/15/19 23 08/15/2022 urina lysis , dipst ick Unknown Analyte Normal = Negati ve Not Available krishna nogueira [address], [place], [address], 08/15/2022 11:23:42 08/15/19 23 08/15/2022 urina lysis , dipst ick Unknown Analyte Trace- intact Not Available [facility] [address], [place], [address], 08/15/2022 11:23:42 08/15/19 23 08/15/2022 urina lysis , dipst ick Unknown Analyte Normal = 6.5, 7.0, 7.5, 8.0 Not Available krishna [address], [place], [address], 08/15/2022 11:23:42 08/15/19 23 08/15/2022 urina lysis , dipst ick Unknown Analyte 7.0 Not Available [address], [place], [address], 08/15/2022 11:23:42 08/15/19 23 08/15/2022 urina lysis , dipst ick Unknown Analyte Normal = Negati ve Not Available [facility] [address], [place], [address], 08/15/2022 11:23:42 08/15/19 23 08/15/2022 urina lysis , dipst ick Unknown Analyte 30 mg/dL Not Available krishna pe [address], [place], [address], 08/15/2022 11:23:42 08/15/1908/15/2022 urina lysis , dipst ick Unknown Analyte Normal = 0.2, 1.0 Not Available [address], [place], [address], 08/15/2022 11:23:42 08/15/19 23 08/15/2022 urina lysis , dipst ick Unknown Analyte 1.0 E.U./d L Not Available [address], [place], [address], 08/15/2022 11:23:42 08/15/19 23 08/15/2022 urina lysis , dipst ick Unknown Analyte Normal = Negati ve Not Available [address] [place] [address], [place], [address], 08/15/2022 11:23:42 08/15/19 23 08/15/2022 urina lysis , dipst ick Unknown Analyte Positi ve Not Available [address] [place] [address], [place], [address], 08/15/2022 11:23:42 08/15/1908/15/2022 urina lysis , dipst ick Unknown Analyte Normal = Negati ve Not Available [address], [place], [address], 08/15/2022 11:23:42 08/15/19 23 08/15/2022 urina lysis , dipst ick Unknown Analyte Small Not Available [address] [place] [address], [place], [address], 08/15/2022 11:23:42 Result Notes None recorded. Problems Name Problem SNOMED Code Status Onset Date Resolution Date Notes Provider Name and Address Organization Details Recorded Time Depressive disorder 54469322 Active 2022 Yuly [place] null, [place] - [facility] 3 11:28:38 Postconcussion syndrome 29886246 Active 2022 Yuly [place] null, [place] - [facility] 3 11:28:50 Vertigo 211471222 Active 2022 Yuly [place] null, [place] - [facility] 3 11:28:57 Post-traumatic stress disorder 53856043 Active 2022 Yuly [place] null, [place] - [facility] 3 11:29:08 Fibromyalgia 022686301 Active 2022 Yuly Flex null, PA - [facility] 3 11:29:17 Migraine 44177332 Active 2022 Yuly [place] null, [place] - [facility] 3 11:29:22 Restless legs syndrome 23269376 Active 2022 Yuly [place] null, [place] - [facility] 3 11:29:26 Anxiety 58520685 Active 2022 Yuly [place] null, [place] - [facility] 3 11:29:32 Chronic kidney disease 808863872 Active 2022 Yuly [place] null, [place] - [facility] 3 11:29:39 Problem Notes None recorded. Procedures Surgical History Date Name Laterality Status Provider Name and Address Organization Details Recorded Time lithotripsy completed Yuly Flex PA - [facility] 08/15/2022 11:30:05 open reduction of fracture of femur with internal fixation completed Yuly [place] PA - [facility] 08/15/2022 11:30:15 hernia repair completed Yuly [place] PA - [facility] 08/15/2022 11:30:24 Gastric [...] mass index (BMI) Body weight Oxygen saturation Pain severity - 0-10 verbal numeric rating [Score] - Reported Heart rate Respiratory rate Body temperature Systolic And Diastolic Provider Name and Address Organization Details Last Updated DateTime 3 165.1 cm 31.1 kg/m2 86106.7 7 g 99 % 10 69 /min 20 /min 97.9 [degF] 124/85 mm[Hg] Yuly Mccord PA AT [facility] 3 11:32:09 Social History Question Answer Notes LastModified by [employer] Details LastModified Time Tobacco Smoking Status Never Smoker Yuly chávez PA Rui [facility] 08/15/2022 11:29:53 Have You Had Direct Contact, Or Contact During Intimacy, With Monkeypox Rash, Scabs, Or Body Fluids From A Person With Monkeypox? No Information not available 08/15/2022 Have You Recently Traveled Abroad? No Information not available 08/15/2022 Sex: Unknown Functional Status Question Answer Note LastModified by [employer] Details LastModified Time Do you use any [...] ICD10 Code Diagnosis IMO Codes Diagnosis Note [id number] [place] [address] [address] 08/15/2022 10:15:26 08/15/2022 12:00:33 Acute urinary tract infection 580449812 N39.0 Health Concerns Section Related Observation LastModified by Organization Detai ls LastModified Time None Recorded Concern Status LastModified by Organization Details LastModified Time None Recorded Advance Directives Directive None Recorded Payers Insurance Date Sequence Insurance Name Policy Number Policy Herrmann Covered Member ID Herrmann Member ID Guarantor Name 08/15/2022 1 [facility] - MEDICARE PREFERRED (MEDICARE REPLACEMENT HMO) [employer] Zaria Rigginsfaith [id number] Zaria Amaya 08/15/2022 2 [place] [facility] Zaria Monique [id number] Zaria Amaya Notes Date Note Type Note [...] Casillas NP [address] [place], [address], [place] - [facility] 08/15/2022 12:00:14 OBGyn Episode No OBEpisode recorded.
--- OUTSIDE RECORDS SUMMARY | 2025-05-28 11:01 | XMS_ITS | Clinical Summary ---
Author Organization [address] Building Address [address] [place] [phone] Phone Care Team Providers Care Electrical Integrator Name Role Phone Shaun Chaudhry Primary Care Provider [phone] Medications No known medications Active Problems No known active problems Surgical History Surgery Date Site/Laterality Comments HYSTERECTOMY PROCEDURE: HISTORICAL HYSTERECTOMY COLONOSCOPY 02/25/2014 PROCEDURE: HISTORICAL COLONOSCOPY GASTRIC BYPASS PROCEDURE: CO GASTRIC RSTCV W/BYP W/SM INT RCNSTJ LIMIT ABSRPJ FEMUR FRACTURE SURGERY PROCEDURE: CO OPEN TX FEMORAL FRACTURE DISTAL MED/LAT CONDYLE HERNIA REPAIR PROCEDURE: HISTORICAL HERNIA REPAIR/UMB CHOLECYSTECTOMY PROCEDURE: CO CHOLECYSTECTOMY OTHER SURGICAL HISTORY PROCEDURE: CO SPINE DEVICE IMPLANT SURGERY OTHER SURGICAL HISTORY 06/30/2017 PROCEDURE: CO UNLISTED VASCULAR ENDOSCOPY PROCEDURE LEG SURGERY PROCEDURE: [...] kidney disease) stage 3, GFR 30-59 ml/min ([facility] V24, [facility] V28) 01/22/2020 DX:CKD (chronic kidney disea se) stage 3, GFR 30-59 ml/min ([facility]) Esophageal dysmotility 01/22/2020 DX:Esopha geal dysmotility GERD [...] Documents on File Type Date Recorded 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
== END 2025-05-28 11:25 | disposition home or self-care (01) ==
LOC: HO.HSMS 09:32
PROVIDERS: PCP Family Medicine; Visit Provider Nurse Practitioner Family
DX: R20.2 Paresthesia of skin (principal); R29.6 Repeated falls; R26.9 Unspecified abnormalities of gait and mobility; G43.109 Migraine with aura, not intractable, without status migrainosus; G25.81 Restless legs syndrome; F33.1 Major depressive disorder, recurrent, moderate; F43.10 Post-traumatic stress disorder, unspecified; R41.89 Other symptoms and signs involving cognitive functions and awareness; R63.5 Abnormal weight gain
CPT/HCPCS: 99214; G2211

== ENCOUNTER → 2025-05-28 09:31 | Outpatient (BNVA) | payer MEDICARE, MEDICAID, SELFPAY | PROVIDERS: PCP Family Medicine; Visit Provider Nurse Practitioner Family | DX: R20.2 Paresthesia of skin (principal); R29.6 Repeated falls; G43.109 Migraine with aura, not intractable, without status migrainosus; G25.81 Restless legs syndrome; F33.1 Major depressive disorder, recurrent, moderate; F43.10 Post-traumatic stress disorder, unspecified; R63.5 Abnormal weight gain | CPT/HCPCS: 99212 ==